=== PATIENT | female | born 1970 | race American Indian/Alaskan Native ===

== ENCOUNTER → 2020-11-26 07:05 | Outpatient (CLI) | payer OTHER, SELFPAY ==
[2020-11-26 08:56] LABS: Cholesterol 249 mg/dL (140-199); HDL Cholesterol 70 mg/dL (40-60); Hemoglobin A1C% w Est Avg Glu 5.2 % (4.0-6.0); LDL Cholesterol Calculated 155 mg/dL (<100); Triglycerides 122 mg/dL (35-150)
[2020-11-26 09:24] LABS: TSH w/ Reflex to FT4 5.01 uIU/mL (0.47-4.68)
[2020-11-26 10:10] LABS: Free T4, Direct Thyroxine 1.22 ng/dL (0.78-2.19)
== END ==
PROVIDERS: PCP Family Medicine; Referring Provider Family Medicine; Visit Provider Family Medicine
DX: Z00.01 Encounter for general adult medical examination with abnormal findings (principal); E78.5 Hyperlipidemia, unspecified
CPT/HCPCS: 36415; 80061; 83036; 84439; 84443

== ENCOUNTER → 2021-01-08 07:01 | Outpatient (CLI) | payer OTHER, SELFPAY ==
[2021-01-08 08:41] LABS: Free T3, Triiodothyronine Free 3.67 pg/mL (2.77-5.27)
[2021-01-08 08:55] LABS: TSH w/ Reflex to FT4 6.84 uIU/mL (0.47-4.68)
[2021-01-08 14:16] LABS: Free T4, Direct Thyroxine 1.01 ng/dL (0.78-2.19)
== END ==
PROVIDERS: PCP Family Medicine; Referring Provider Family Medicine; Visit Provider Family Medicine
DX: E03.9 Hypothyroidism, unspecified (principal); E78.2 Mixed hyperlipidemia
CPT/HCPCS: 36415; 84439; 84443; 84481

== ENCOUNTER → 2021-02-22 10:24 | Outpatient (CLI) | payer OTHER, SELFPAY ==
--- NOTE | 2021-02-22 10:30 | DIET.PN ---
Dietary Progress Note Assessment: Pt wants to get off thyroid meds using diet and herbs with supervision of PCP. Diagnosed with hypothyroid in 30s and currently having side effects from Armor Thyroid (sunburns) Pt doesn't have regular eating routine. Prefers to eat less fiber at dinner time because takes her longer to digest (prefers steamed or cooked rather than raw). Usual Day: wakes and takes thyroid meds then waits an hour does 12oz coffee per day or 3 shots espresso B: yogurt parfait using whole milk yogurt, organic flax granola without sugar OR oatmeal with PB, cinnamon c honey, banana/apple L: sometimes forget to eat, quinoa bowl from [email or web address] (in small amounts over 3-4 sessions), hummus and veggies D: wild rice, usually low starch, generally veggies and protein Drinks a lot of water, occasionally has a fizzy water Avoids soy, some cruciferous veggies, has some sensitivity to starch (feeling of fullness) HT: 5'5 WT: 164-174# Labs:TC 249 H, LDL 155 H, HDL 70 H, TSH 6.84 H Interventions: 1. Discussed balanced plate eating in context of pts particular digestive concerns, HLD, and thyroid health. Focus on 1/4 protein garland shellfish (iodine),1/2c beans (zinc, soluble fiber), 2 brazil nuts (selenium), continue avoiding soy. 1/4 complex carbohydrates: colorful rices, quinoa, 1/2 c chickpea pasta, (f/v, nuts, seeds, also count here to some extent). Up to 2 servings fruit per day. 1/2 plate non-starchy veggies limiting cruciferous to 1/2 c cooked or 1 c raw daily, include [place] seaweed (iodine). Pt received handout with personalized plan. 2. Discussed nutrients of concern for thyroid and HLD: soluble fiber, iodine, selenium, zinc and food sources of each. 3. Discussed how stress from being overly strict with a diet can cause ill health and poorer quality of life. Stressed importance of personalized plan vs following strict advice from internet. Monitoring/Evaluations: pt will call to schedule f/u as needed
== END ==
PROVIDERS: PCP Family Medicine; Referring Provider Family Medicine; Visit Provider Family Medicine
DX: E03.9 Hypothyroidism, unspecified (principal); Z71.3 Dietary counseling and surveillance
CPT/HCPCS: 97802

== ENCOUNTER → 2021-04-10 15:06 | Outpatient (CLI) | payer OTHER, SELFPAY ==
[2021-04-10 16:55] LABS: Free T3, Triiodothyronine Free 6.01 pg/mL (2.77-5.27); Free T4, Direct Thyroxine 0.94 ng/dL (0.78-2.19)
[2021-04-10 17:08] LABS: TSH w/ Reflex to FT4 1.97 uIU/mL (0.47-4.68)
== END ==
PROVIDERS: PCP Family Medicine; Referring Provider Family Medicine; Visit Provider Family Medicine
DX: E03.9 Hypothyroidism, unspecified (principal)
CPT/HCPCS: 36415; 84439; 84443; 84481

== ENCOUNTER → 2021-10-10 07:54 | Outpatient (CLI) | payer OTHER, SELFPAY ==
--- NOTE | 2021-10-31 16:07 | P.HOLT.S_ITS ---
[employer] Report Referral & Results Date Patient Seen: 10/10/21 Requesting provider: Abelardo Bustamante Indication: Palpitations Duration of monitoring (days): 14 Diary information: Was 1 patient triggered event and 18 patient diary entries All 19 of these events were associated with sinus rhythm only Data: Minimum heart rate identified was 55 beats per minute at 05:48 on 10/22/2021 Maximum sinus heart rate was 167 beats per minute at 18:20 on 10/21/2021 Maximum overall heart rate was 179 beats per minute at 12:20 on 10/13/2021 during a run of SVT Less than 1% of identified beats were ventricular or supraventricular ectopic in origin, which would classify them as rare. There were 6 runs of SVT the fastest being the 5 beat run noted above at 179 beats per minute with the longest lasting 8 beats Impression: 14 day alarm security or surveillance monitor demonstrating very rare very brief runs of SVT Otherwise no significant dysrhythmias identified Patient events not correlated with any dysrhythmia and therefore source of sense of palpitations not identified on this study
== END ==
PROVIDERS: PCP Family Medicine; Referring Provider Family Medicine; Visit Provider Family Medicine
DX: R00.2 Palpitations (principal)
CPT/HCPCS: 93246; 93248

== ENCOUNTER → 2021-10-30 10:36 | Outpatient (CLI) | payer OTHER, SELFPAY ==
[2021-10-30 11:59] LABS: Add Manual Diff / Slide Review NO; Basophils Absolute Auto 0 /uL (0-100); Basophils Percent Auto 0.7 % (0-2); Eosinophils Absolute Auto 0 /uL (0-450); Eosinophils Percent Auto 0.6 % (2-4); Hematocrit 44.3 % (36-46); Hemoglobin 14.7 g/dL (12.0-16.0); Lymphocytes Absolute Auto 2500 /uL (1100-4500); Lymphocytes Percent Auto 48.2 % (25-40); Mean Corpuscular HGB Conc 33.2 % (30-36); Mean Corpuscular Hemoglobin 29.5 PG (26-34); Mean Corpuscular Volume 88.9 fL (80-100); Monocytes Absolute Auto 200 /uL (0-900); Monocytes Percent Auto 4.4 % (3-14); Neutrophils Absolute Auto 2400 /uL (1500-7000); Neutrophils Percent Auto 46.1 % (50-75); Platelet Count 236 X10^3/uL (150-400); Red Blood Cell Count 4.98 X10^6/uL (4.0-5.2); Red Cell Distribution Width 12.7 % (11.6-14.8); White Blood Cell Count 5.2 X10^3/uL (4.5-11.0)
[2021-10-30 12:21] LABS: Erythrocyte Sedimentation Rate 2 MM/HR (0-20)
[2021-10-30 12:30] LABS: Alanine Aminotransferase 19 IU/L (<35); Albumin 4.6 g/dL (3.5-5.0); Albumin Globulin Ratio 1.4 (1.0-2.8); Alkaline Phosphatase 59 U/L (38-126); Aspartate Aminotransferase 25 IU/L (14-36); Bilirubin Total 0.4 mg/dL (0.2-1.3); Blood Urea Nitrogen 9 mg/dL (7-17); C-Reactive Protein Quant < 0.5 mg/dL (<1.0); Calcium 9.6 mg/dL (8.4-10.2); Carbon Dioxide 32 mmol/L (22-32); Chloride 102 mmol/L (98-107); Cholesterol 196 mg/dL (140-199); Estimated Glomerular Filt Rate > 60.0 mL/min (>60); Globulin 3.4 g/dL (1.7-4.1); Glucose 92 mg/dL (70-100); HDL Cholesterol 59 mg/dL (40-60); HEMOLYSIS < 15 (0-50); LDL Cholesterol Calculated 119 mg/dL (<100); Potassium 4.5 mmol/L (3.4-5.1); Sodium 140 mmol/L (137-145); Triglycerides 92 mg/dL (35-150)
[2021-10-30 12:34] LABS: Vitamin D 25 Hydroxy (D3) 19.9 ng/mL (30.0-100.0)
[2021-10-30 13:11] LABS: Vitamin B12 516 pg/mL (239-931)
[2021-11-02 16:35] LABS: ANA Screen, IFA Positive (.)
[2021-11-03 19:35] LABS: Percent Free Testosterone 1.53 % (0.50-2.80); Testosterone Free 0.22 ng/dL (0.10-0.85); Testosterone Total 14.3 ng/dL (.)
== END ==
PROVIDERS: PCP Family Medicine; Referring Provider Family Medicine; Visit Provider Family Medicine
DX: E03.9 Hypothyroidism, unspecified (principal); G89.29 Other chronic pain; R00.2 Palpitations; R51.9 Headache, unspecified; R53.82 Chronic fatigue, unspecified
CPT/HCPCS: 36415; 80053; 80061; 82306; 82607; 84402; 84403; 85025; 85651; 86038; 86140

== ENCOUNTER → 2022-06-13 08:42 | Outpatient (CLI) | payer OTHER, SELFPAY ==
[2022-06-13 09:45] LABS: HEMOLYSIS < 15 (0-50); Iron 104 ug/dL (37-170)
[2022-06-13 09:49] LABS: C-Reactive Protein Quant < 0.5 mg/dL (<1.0)
[2022-06-13 09:55] LABS: Percent Iron Saturation 27 % (15-50); Total Iron Binding Capacity 389 ug/dL (265-497); Transferrin 278 mg/dL (206-381)
[2022-06-13 10:01] LABS: Free T3, Triiodothyronine Free 5.06 pg/mL (2.77-5.27)
[2022-06-13 10:05] LABS: Erythrocyte Sedimentation Rate 6 MM/HR (0-20)
[2022-06-13 10:15] LABS: TSH w/ Reflex to FT4 4.86 uIU/mL (0.47-4.68)
[2022-06-13 10:20] LABS: Ferritin 38 ng/mL (11-264)
[2022-06-13 10:52] LABS: Folate 10.7 ng/mL (2.76-20.0); Vitamin B12 480 pg/mL (239-931)
[2022-06-13 11:05] LABS: Free T4, Direct Thyroxine 1.09 ng/dL (0.78-2.19)
== END ==
PROVIDERS: PCP Family Medicine; Referring Provider Family Medicine; Visit Provider Family Medicine
DX: E55.9 Vitamin D deficiency, unspecified (principal); E78.2 Mixed hyperlipidemia; K13.0 Diseases of lips; G89.29 Other chronic pain; K14.8 Other diseases of tongue; E03.9 Hypothyroidism, unspecified
CPT/HCPCS: 36415; 82607; 82728; 82746; 83540; 83550; 84439; 84443; 84481; 85651; 86038; 86140

== ENCOUNTER → 2022-07-04 09:01 | Outpatient (CLI) | payer OTHER, SELFPAY ==
[2022-07-09 17:56] LABS: ANA Screen, IFA Positive (.)
== END ==
PROVIDERS: PCP Family Medicine; Referring Provider Family Medicine; Visit Provider Family Medicine
DX: E03.9 Hypothyroidism, unspecified (principal); G89.29 Other chronic pain; R00.2 Palpitations; R51.9 Headache, unspecified; R53.82 Chronic fatigue, unspecified
CPT/HCPCS: 36415; 86038

== ENCOUNTER 2023-11-05 21:09 | Inpatient (IN) | payer OTHER, SELFPAY ==
[2023-11-05] VITALS (14 sets, daily range): BP systolic 114–160; BP diastolic 61–95; PULSE 100–114; RESP 14–28; TEMP 36.7; O2SAT 95–99
--- NOTE | 2023-11-05 21:32 | DI.CT.S_ITS ---
PROCEDURE: CT STROKE INDICATIONS: stroke TECHNIQUE: Noncontrast 4.5 mm thick angled axial sections acquired from the foramen magnum to the vertex, with coronal reformats. For radiation dose reduction, the following was used: automated exposure control, adjustment of mA and/or kV according to patient size. COMPARISON: None. FINDINGS: Image quality: Diagnostic. CSF spaces: Basal cisterns are patent. No extra-axial fluid collections. The ventricles are symmetric in size and shape. Brain: No intracranial bleeds or masses. There is cerebral volume loss for age, with resultant ventricular and sulcal prominence. There are periventricular and deep white matter chronic small vessel ischemic changes. There is intracranial internal carotid artery atherosclerosis. Skull and face: Calvarium and visualized facial bones appear intact, without suspicious lesions. Sinuses: Visualized sinuses and mastoids are clear. IMPRESSION: No acute intracranial pathology. Findings were conveyed to ordering ED provider Dr. Jenkins by Dr. Levi at 9:51 p.m. PST on 11/05/2023. This study fulfills neurological imaging criteria for inclusion or exclusion of acute stroke therapies based on available published neurological guidelines. Approved by: Katie Levi M.D. on 11/05/2023 at 21:52
--- NOTE | 2023-11-05 21:32 | ED_ITS ---
HPI - General Adult General Chief complaint: Dizziness Stated complaint: dizzy, unable to walk, not feeliig well Time Seen by Provider: 11/05/23 21:21 Source: patient and family Mode of arrival: Wheelchair History of Present Illness HPI narrative: 53-year-old woman with a history of hypothyroidism presents with increasing neurologic complaints over the last 10 hours. She was doing an infrared spot treatment around 11 30 this morning when she noted that her right arm seemed like it was weaker and slightly numb. She assumed it was simply a pinched nerve. It seemed to improve. Recurred again and again improved. She complains of feeling ?not right? and somewhat fatigued all day. She and her went to a basketball game this evening and in the middle of the game she asked her to help her out of the stands because she was not feeling well. She was having some difficulty walking. noticed that her speech seemed somewhat abnormal. This was at 8:30 p.m. this evening. Prior to today she had had no fevers, cough, chills no recent infections, no prior neurologic complaints, chest pain, palpitations or headaches Related Data Previous Rx's Medication Instructions Recorded epinephrine 0.3 mg/0.3 mL 0.3 ml SUBCUT ONCE #2 ea 04/10/21 injection syringe thyroid (pork) 30 mg tablet 30 mg PO DAILY #90 tabs 02/27/23 ([place] Thyroid) Allergies Allergy/AdvReac Type Severity Reaction Status Date / Time ibuprofen [IBUPROFEN] Allergy Unknown Verified 11/05/23 22:00 Penicillins [PENICILLINS] Allergy Unknown Verified 11/05/23 22:00 Bos[place]ellya AdvReac Intermediate Uncoded 03/03/22 15:18 Review of Systems Review of Systems Narrative: Pertinent positive and negative findings as per HPI Patient History Medical History Vitamin D deficiency Chronic headaches Heart palpitations Chronic neck pain Chronic back pain Hearing decreased Mumps Measles Chicken pox Hypothyroidism Hyperlipidemia Surgical History Anesthesia History of tonsillectomy Family History Father No problems noted. Grandmother Stroke Grandfather History of heart disease Grandmother History of heart disease Cancer Social History Smoking Status: Never smoker Smoking Status: Never smoker Exam Initial Vital Signs Initial Vital Signs: Vital Signs Temperature 98.1 F 11/05/23 21:22 Pulse Rate 110 H 11/05/23 21:22 Respiratory Rate 24 11/05/23 21:22 Blood Pressure 160/95 H 11/05/23 21:22 Pulse Oximetry 98 11/05/23 21:22 Oxygen Delivery Method Room Air 11/05/23 21:22 General: Appears to feel unwell, slightly flushed around the posterior part of her neck extending onto her upper neck such as can be seen with anxiety. HEENT: Dry mucous membranes, normal sclera with reactive pupils, Neck: No JVD, supple Respiratory: Lungs are clear to auscultation, no wheezing no rales no rhonchi. Full and symmetrical air movement Cardiac: Tachycardic but otherwise Regular rate and rhythm no murmurs no bruits Abdomen: Soft, nontender, good bowel tones, no flank pain Skin: Warm and dry, flushing over her upper chest Neurologic: She has some dysarthria and dysphagia. Mild decreased sensation right arm and right leg. Right arm is slightly weaker than the left but the left does not appear completely at baseline either. Similar findings with the legs. She has difficulty with ataxia in all 4 limbs right side significantly worse than the left. NIH score is below Extremities: No trauma, well perfused Psych: Cooperative, appropriate insight and affect NIH Stroke Scale/Score (NIHSS) RESULT SUMMARY: 7 points NIH Stroke Scale INPUTS: 1A: Level of consciousness ?> 0 = Alert; keenly responsive 1B: Ask month and age ?> 0 = Both questions right 1C: 'Blink eyes' & 'squeeze hands' ?> 0 = Performs both tasks 2: Horizontal extraocular movements ?> 0 = Normal 3: Visual alfonso ?> 0 = No visual loss 4: Facial palsy ?> 0 = Normal symmetry 5A: Left arm motor drift ?> 0 = No drift for 10 seconds 5B: Right arm motor drift ?> 1 = Drift, but doesn't hit bed 6A: Left leg motor drift ?> 0 = No drift for 5 seconds 6B: Right leg motor drift ?> 1 = Drift, but doesn't hit bed 7: Limb Ataxia ?> 2 = Ataxia in 2 Limbs 8: Sensation ?> 1 = Mild-moderate loss: less sharp/more dull 9: Language/aphasia ?> 1 = Mild-moderate aphasia: some obvious changes, without significant limitation 10: Dysarthria ?> 1 = Mild-moderate dysarthria: slurring but can be understood 11: Extinction/inattention ?> 0 = No abnormality Course Orders Ordered: ED Orders 11/05/23 21:22 Complete Blood Count AUTO DIFF Stat Comprehensive Metabolic Panel Stat Ethanol (ETOH) Stat PTT Partial Thromboplastin Andrew Stat Prothrombin Time INR Stat T4 Total Thyroxine Stat TSH [Thyroid Stimulating Hormone] Stat Troponin & CK Cardiac Panel Stat 11/05/23 21:32 CT Stroke Stat EKG-12 Lead Stat 11/05/23 21:33 CT angio head and neck Stat 11/05/23 22:27 Urinalysis and Microscopic Stat Urine Drug Screen, Rapid Stat Sodium Chloride (Normal Saline 0.9%) 1,000 mls @ 150 mls/hr IV CONT DANIEL Last Admin: 11/05/23 22:00 Dose: 150 mls/hr Documented By: WILLIE Discontinued Medications Aspirin (Aspirin 81 Mg Chew Tab) 324 mg PO NOW ONE Stop: 11/05/23 23:16 Last Admin: 11/05/23 23:53 Dose: Not Given Documented By: WILLIE Aspirin (Aspirin 300 Mg Supp) 300 mg DE NOW ONE Stop: 11/05/23 23:49 Last Admin: 11/06/23 00:06 Dose: 300 mg Vital Signs Vital signs: Vital Signs - 8 hr 11/05/23 21:22 11/05/23 21:23 11/05/23 21:25 Temperature 98.1 F Pulse Rate 110 H 113 H 110 H Respiratory Rate 24 19 20 Blood Pressure 160/95 H Pulse Oximetry 98 98 97 Oxygen Delivery Method Room Air 11/05/23 21:25 11/05/23 21:30 11/05/23 21:30 Temperature Pulse Rate 105 H Respiratory Rate 28 H Blood Pressure 160/95 H 152/86 H Pulse Oximetry 99 Oxygen Delivery Method Room Air 11/05/23 21:44 11/05/23 21:44 11/05/23 21:45 Temperature Pulse Rate 114 H Respiratory Rate 14 Blood Pressure 145/84 H 134/75 Pulse Oximetry 98 Oxygen Delivery Method 11/05/23 21:45 11/05/23 22:00 11/05/23 22:00 Temperature Pulse Rate 111 H 106 H Respiratory Rate 15 20 Blood Pressure 142/80 H Pulse Oximetry 98 97 Oxygen Delivery Method Room Air Medical Decision Making Lab Data 11/05/23 21:22 11/05/23 21:22 Labs: Lab Results 11/05/23 11/05/23 11/05/23 Range/Units 21:22 22:27 22:27 WBC 9.3 (4.5-11.0) X10^3/uL RBC 4.80 (4.0-5.2) X10^6/uL Hgb 14.3 (12.0-16.0) g/dL Hct 42.3 (36-46) % MCV 88.0 (80-100) fL MCH 29.8 (26-34) PG MCHC 33.9 (30-36) % RDW 13.0 (11.6-14.8) % Plt Count 247 (150-400) X10^3/uL Neut % (Auto) 37.7 L (50-75) % Lymph % (Auto) 56.6 H (25-40) % [place] % (Auto) 4.3 (3-14) % Eos % (Auto) 0.7 L (2-4) % Baso % (Auto) 0.7 (0-2) % Neut # (Auto) 3500 (8214-1390) /uL Lymph # (Auto) 5200 H (2981-9951) /uL [place] # (Auto) 400 (0-900) /uL Eos # (Auto) 100 (0-450) /uL Baso # (Auto) 100 (0-100) /uL PT 10.7 (9.4-12.5) SECONDS INR 0.9 (0.9-1.3) APTT 39 H (25.1-36.5) SECONDS Sodium 140 (137-145) mmol/L Potassium 3.6 (3.4-5.1) mmol/L Chloride 102 (98-107) mmol/L Carbon Dioxide 26 (22-32) mmol/L BUN 17 (7-17) mg/dL Creatinine 0.57 (0.52-1.04) mg/dL Estimated GFR > 60 (>60) mL/min BUN/Creatinine Ratio 29.8 H (6-22) Glucose 108 H (70-100) mg/dL Calcium 9.4 (8.4-10.2) mg/dL Total Bilirubin 0.6 (0.2-1.3) mg/dL AST 29 (14-36) IU/L ALT 23 (<35) IU/L Alkaline Phosphatase 70 (38-126) U/L Total Creatine Kinase 86 (30-135) U/L Troponin I < 0.012 (0.01-0.034) ng/mL Total Protein 8.8 H (6.3-8.2) g/dL Albumin 4.8 (3.5-5.0) g/dL Globulin 4.0 (1.7-4.1) g/dL Albumin/Globulin Ratio 1.2 (1.0-2.8) TSH 10.1 H (0.47-4.68) uIU/mL Urine Color Yellow Urine Appearance Clear Urine pH 6.5 Normal (4.5-8.0) Ur Specific [place] 1.010 (1.000-1.035) Urine Protein Negative (Negative) Urine Glucose (UA) Negative (Negative) g/dL Urine Ketones Negative (NEGATIVE) Urine Occult Blood Negative (Negative) Urine Nitrate Negative (Negative) Urine Bilirubin Negative (NEGATIVE) Urine Urobilinogen 0.2 (0.2) E.U./dL Ur Leukocyte Esterase Negative (NEGATIVE) Urine RBC 0-1/hpf (0-5/HPF) Urine WBC 0-1/hpf (0-5/HPF) Ur Squamous Epith Cells 1-5 /hpf (0-5/HPF) Urine Bacteria Occasional (0-1) (None) Ur Culture Indicated? Cult not indicated Vol Urine Centrifuged 10ml (spun) U Opiates 300ng/mL cut Negative (Negative) Ur Oxycodone Screen Negative (Negative) Urine Methadone Screen Negative (Negative) Ur Barbiturates Screen Negative (Negative) U Tricyclic Antidepress Negative (Negative) Ur Phencyclidine Scrn Negative (Negative) Ur Amphetamines Screen Negative (Negative) U Methamphetamines Scrn Negative (Negative) Ur MDMA Scrn (Ecstasy) Negative (Negative) U Benzodiazepines Scrn Negative (Negative) Urine Cocaine Screen Negative (Negative) U Marijuana (THC) Screen Negative (Negative) Urine Specific [place] Normal (Normal) Ethyl Alcohol < 10 ( - 10) mg/dL Ur Creatinine Normal (Normal) Point of Care Testing Glucose POC 99 Point of care testing: Point of Care Testing Glucose POC [address] angiogram head and neck: Radiologist's Impression: PROCEDURE: CT ANGIO HEAD AND NECK INDICATIONS: stroke TECHNIQUE: After the administration of intravenous contrast, 1 mm thick sections acquired from the aortic arch through the [place]. 3-dimensional lfhimyq-yoipraqyh-iujysfiwuf (MIP) and/or volume rendering reformats were acquired of the central intracranial vasculature and neck separately. For radiation dose reduction, the following was used: automated exposure control, adjustment of mA and/or kV according to patient size. COMPARISON: None. FINDINGS: Image quality: Diagnostic. BRAIN: CSF spaces: Ventricles are normal in size and shape. Basal cisterns are patent. No extra-axial fluid collections. Brain: No significant abnormality of the brain can be seen. Skull and face: Calvarium and facial bones appear intact, without suspicious lesions. Orbits appear normal. Sinuses: Sinuses and mastoids are clear. HEAD CT ANGIOGRAPHY: Anterior circulation: Intracranial internal carotid arteries are normal in size and flow. The flow within the paired anterior cerebral arteries is normal and symmetric. The flow within the middle cerebral arteries is normal and symmetric. The anterior communicating artery is seen. No aneurysms are seen. Posterior circulation: Visualized portions of the vertebral arteries demonstrate normal caliber, and join to form a normal appearing basilar artery. origin of the right posterior cerebral artery. Flow within the posterior cerebral arteries is normal and symmetric. No aneurysms are seen. NECK CT ANGIOGRAPHY: Carotid system: There is an aberrant right subclavian artery arising from the distal aortic arch and coursing posterior to the esophagus. The right common carotid artery arises directly from the aortic arch and is patent. The common carotid arteries demonstrate normal caliber and courses. The bifurcation regions are both widely patent. The internal carotid arteries demonstrate normal calibers and courses. Mild calcifications of the bilateral internal carotid siphons. Posterior circulation: The origins of the vertebral arteries both appear widely patent. The more superior extracranial portions of both vertebral arteries also demonstrate normal courses and calibers. They join to form a normal appearing basilar artery. Soft tissues: Visualized neck soft tissues demonstrate no suspicious abnormalities. Bones: No suspicious bony lesions. Visualized cervical spine appears normally aligned. IMPRESSION: No significant intracranial arterial abnormality is seen. No significant abnormality is seen within the arteries of the neck. Incidental retroesophageal aberrant right subclavian artery. Any quantitative measurements of stenosis were performed using NASCET criteria. Approved by: Katie Levi M.D. on 11/05/2023 at 22:25 MDM Narrative Medical decision making narrative: CC: Concern for stroke Last known well was 30 this morning with stuttering right arm symptoms. Reported to her she was not feeling well at 8:30 p.m. this evening but not entirely clear that was truly the onset Complicating co-morbidities: Hypothyroidism Data collected from: patient, Medical records reviewed: Note from May 2022 primary care is reviewed. Apparently there was a tongue abnormality that was causing the patient to burn her tongue frequently and her dentist sent her to her primary care doctor with concerns for neurologic issues. It does not look like additional workup or referrals were done Differential considered: Stroke, infection, MS, intracranial mass Exam documented above, pertinent findings include: Patient with mild dysarthria, mild aphasia, overall weakness but right greater than left with mild paresthesia right greater than left in the extremities but not the face. Overall initial NIH score is 7. Lab Test results independently reviewed as above. Pertinent findings: CBC is unremarkable Chemistries are reassuring Troponin is undetectable Urine does not suggest infection Toxicology screen is unremarkable and alcohol level is nondetectable. Independently reviewed EKG: Sinus tachycardia, occasional PVCs. No acute ischemic changes Imaging studies independently reviewed: Head CT does not show any acute abnormality CT angiogram of the head and neck did not show any acute abnormalities, specifically no large vessel occlusion Consultations:9:52pm call from radiology - no acute bleed on head CT 11:11 pm Tele stroke consult. Dr. Johnson. She was able to review studies and based on presentation her recommendation was aspirin and an MRI. Treatments: Patient did not pass her swallow eval, rectal aspirin is given Re-evaluations: Initial evaluation gives her an NIH score of 7. The overall picture is not obvious. CT and CTA of the brain are ordered. Discussion: 53-year-old woman with intermittent episodes of right arm weakness and then increasing right leg weakness, paresthesias and she has failed her swallow eval. Events have continued over the course of the day beginning at 11:30 a.m. this morning and her noticing around [address] angiogram did not show acute stroke, bleed or large vessel occlusion. In discussion with stroke Neurology patient will be admitted with anticipation of MRI in the morning. Her initial NIH score was 7. On repeat she is far less anxious, her speech is definitely improved but her NIH score remains a 7. She has not a tPA candidate as it was at least 9 hours since onset of symptoms and diagnosis is not completely clear at this time. Findings reviewed with the patient and her . Care is reviewed with Dr. Soliz, admitting hospitalist. Patient will be admitted for further evaluation and presumed at least TIA if not stroke. Additional possibilities do include other neurologic diagnoses such as multiple sclerosis with acute flare. There is no evidence of infection, meningitis toxidrome or acute intoxication appreciated today. Additional Information: [facility] Stroke & Stroke Rehabilitation: Thrombolytic Therapy [] The patient, who arrived at the hospital within 3.5 hours of time last known well, was diagnosed with subacute or acute ischemic stroke. An IV thrombolytic therapy was initiated within 4.5 hours of time last known well. [SATISFIES MIPS PERFORMANCE] [] The patient was diagnosed with subacute or acute ischemic stroke. An IV thrombolytic therapy was not initiated within 4.5 hours of last known well due to [select]: [MIPS PERFORMANCE EXCEPTION/EXCLUSION] [x] Patient arrived more than 3.5 hours after last known well time, or the time last known well is unknown [] Patient has a medical contra-indication or reason for not administering an IV thrombolytic therapy (ex. neurologist does not believe a thrombolytic is appropriate, active internal bleeding, serious head trauma, acute current or history of intracranial hemorrhage, uncontrollable hypertension, seizure at onset of stroke, CVA in last 3 months, Intracranial or intraspinal surgery in last 3 months, bleeding disorder, thrombocytopenia < 100,000, early radiographic ischemic changes on head CT, INR > 1.7, intracranial neoplasm, AVM, or aneurysm, patient in stroke trial, patient admitted for elective carotid intervention) [] Patient or family declined an IV thrombolytic [] The patient, who arrived at the hospital within 3.5 hours of time last known well, was diagnosed with subacute or acute ischemic stroke. An IV thrombolytic was not initiated within 4.5 hours of time last known well. [DOES NOT SATISFY MIPS PERFORMANCE] Critical Care Time Critical Care Time Critical Care Time: Yes Total Critical Care Time: 33 Attestation: Critical care time is separate from other billable procedures. There is a high probability of a significant, sudden or life-threatening deterioration that requires my full and direct attention, intervention and personal management. This critical care time includes consultation with family and other consulting doctors, review of records, and interpretation of data from labs, EKGs and imaging as well as managements of acute stroke symptoms Discharge Plan Departure Patient Disposition: Admitted as Observation Clinical Impression: Stroke Qualifiers: CVA mechanism: unspecified Qualified Code(s): I63.9 - Cerebral infarction, unspecified Admit Date/Time: 11/06/23 00:10
[2023-11-05 21:42] LABS: Add Manual Diff / Slide Review NO; Basophils Absolute Auto 100 /uL (0-100); Basophils Percent Auto 0.7 % (0-2); Eosinophils Absolute Auto 100 /uL (0-450); Eosinophils Percent Auto 0.7 % (2-4); Hematocrit 42.3 % (36-46); Hemoglobin 14.3 g/dL (12.0-16.0); Lymphocytes Absolute Auto 5200 /uL (1100-4500); Lymphocytes Percent Auto 56.6 % (25-40); Mean Corpuscular HGB Conc 33.9 % (30-36); Mean Corpuscular Hemoglobin 29.8 PG (26-34); Monocytes Absolute Auto 400 /uL (0-900); Monocytes Percent Auto 4.3 % (3-14); Neutrophils Absolute Auto 3500 /uL (1500-7000); Neutrophils Percent Auto 37.7 % (50-75); Platelet Count 247 X10^3/uL (150-400); White Blood Cell Count 9.3 X10^3/uL (4.5-11.0)
[2023-11-05 21:44] LABS: INR 0.9 (0.9-1.3); Prothrombin Time 10.7 SECONDS (9.4-12.5)
[2023-11-05 21:47] LABS: PTT Partial Thromboplastin Tim 39 SECONDS (25.1-36.5)
[2023-11-05 21:49] LABS: Alanine Aminotransferase 23 IU/L (<35); Albumin 4.8 g/dL (3.5-5.0); Albumin Globulin Ratio 1.2 (1.0-2.8); Alkaline Phosphatase 70 U/L (38-126); Aspartate Aminotransferase 29 IU/L (14-36); BUN Creatinine Ratio 29.8 (6-22); Bilirubin Total 0.6 mg/dL (0.2-1.3); Blood Urea Nitrogen 17 mg/dL (7-17); Calcium 9.4 mg/dL (8.4-10.2); Carbon Dioxide 26 mmol/L (22-32); Chloride 102 mmol/L (98-107); Creatine Kinase 86 U/L (30-135); Estimated Glomerular Filt Rate > 60 mL/min (>60); Ethanol (ETOH) < 10 mg/dL; Glucose 108 mg/dL (70-100); HEMOLYSIS 27 (0-50); Potassium 3.6 mmol/L (3.4-5.1); Sodium 140 mmol/L (137-145); Total Protein 8.8 g/dL (6.3-8.2)
[2023-11-05 22:00] LABS: Troponin I < 0.012 ng/mL (0.01-0.034)
[2023-11-05] MEDS: SODIUM CHLORIDE 0.9% 1,000 ML 150 ML IV (22:00)
[2023-11-05 22:34] LABS: Appearance Urine UA CLEAR; Bilirubin Urine UA NEGATIVE (NEGATIVE); Color Urine UA YELLOW; Glucose Urine UA NEGATIVE (Negative); Ketones Urine UA NEGATIVE (NEGATIVE); Leukocyte Esterase Urine UA NEGATIVE (NEGATIVE); Nitrite Urine UA NEGATIVE (Negative); Occult Blood Urine UA NEGATIVE (Negative); Protein Urine UA NEGATIVE (Negative); UR Morphine/Opiate cutoff 300 Negative (Negative); Ur Creatinine Normal (Normal); Ur Specific Gravity Normal (Normal); Urine Amphetamines Negative (Negative); Urine Barbiturates Negative (Negative); Urine Benzodiazepines Negative (Negative); Urine Cocaine Negative (Negative); Urine MDMA Negative (Negative); Urine Methadone Negative (Negative); Urine Methamphetamines Negative (Negative); Urine Oxycodone Negative (Negative); Urine Phencyclidine Negative (Negative); Urine Tetrahydrocannabinol Negative (Negative); Urine Tricyclic Antidepressant Negative (Negative); Urine pH Normal (Normal); Urobilinogen Urine UA 0.2 E.U./dL (0.2)
[2023-11-05 22:43] LABS: Bacteria Urine Occasional (0-1); Culture Indicated Urine Cult Not Indicated; RBC Urine 0-1/HPF (0-5/HPF); Squamous Epithelial Cell Urine 1-5 /HPF (0-5/HPF); Urine Volume 10mL (spun); WBC Urine 0-1/HPF (0-5/HPF); pH Urine UA 6.5 (4.5-8.0)
[2023-11-05 23:55] LABS: Thyroid Stimulating Hormone 10.1 uIU/mL (0.47-4.68)
[2023-11-06] VITALS (10 sets, daily range): BP systolic 92–130; BP diastolic 62–83; PULSE 76–102; RESP 14–19; TEMP 36.2–36.9; O2SAT 96–98; BMI 29.7
[2023-11-06] MEDS: ASPIRIN 300 MG SUPP PR (00:06)
[2023-11-06 00:33] LABS: T4 Total Thyroxine 6.31 ug/dL (5.5-11.0)
[2023-11-06] MEDS: SODIUM CHLORIDE 0.9% 1,000 ML 150 ML IV (01:59)
--- NOTE | 2023-11-06 03:08 | DI.MRI.S_ITS ---
PROCEDURE: MR HEAD/BRAIN WO CON INDICATIONS: tia TECHNIQUE: Noncontrast axial T1 spin echo, axial T2 fast spin echo, sagittal and axial FLAIR, coronal T2 fast spin echo, axial gradient echo, axial diffusion and ADC through the brain. COMPARISON: [facility], CT, CT ANGIO HEAD AND NECK, 11/05/2023, 21:43. [facility], CT, CT STROKE, 11/05/2023, 21:43. FINDINGS: Image quality: Excellent. CSF Spaces: Basal cisterns are patent. No extra-axial fluid collections. Ventricles are normal in size and shape. Brain: No intracranial masses or hemorrhage. [place]/white matter interface is normal. Brainstem appears normal. Diffusion-weighted images demonstrate no acute infarct. No chronic ischemic insults. Normal intravascular flow voids are present. Skull and face: Calvarium has normal marrow signal. Orbits appear normal. Sinuses: Sinuses and mastoids are clear. IMPRESSION: No findings of acute or subacute infarction can be seen. Dictated by: Drew Douglas M.D. on 11/06/2023 at 10:49 Approved by: Drew Douglas M.D. on 11/06/2023 at 10:51
--- NOTE | 2023-11-06 03:27 | PM.HP.1 ---
History of Present Illness History of Present Illness Date Patient Seen: 11/06/23 Time Patient Seen: 01:30 Chief complaint: dizzy, unable to walk, not feeliig well Narrative: 51 years old female with past medical history fibromyalgia, hypothyroidism, hyperlipidemia, chronic back pain/headache, vitamin D deficiency and other medical issues was brought to the emergency room for weakness on the left side of the body and subsequently weekly labs and the right upper and lower extremity. She had an infrared spa treatment for the fibromyalgia around 11:30 in the morning and noticed initially weakness on the left side and subsequently improved and weakness in the right side as well. She is simply assumed it was a pinched nerve and went to basketball in the evening. In the middle of the game, she asked to help out of the stance because she was not feeling well with significant gait instability. Spouse also noted some abnormality in the speech that was slow and slurred. Denies any blurred vision diplopia trauma. Did have recent fibromyalgia flareup after recent hike but not into the [place] about 2 weeks ago. No recent other travels or infections. Denies any chest pain or shortness of breath. Denies any nausea vomiting. CT angio of the head and neck showed no significant intracranial or vascular abnormality. In the ED, patient had a choking episode with any oral intake of pills or with fluids. Aspirin was given per rectally and stroke neurology were consulted. Not a candidate for tPA since outside the 4-hour window. Recommended admission for further workup including MRI [facility] Medical History Vitamin D deficiency Chronic headaches Heart palpitations Chronic neck pain Chronic back pain Hearing decreased Mumps Measles Chicken pox Hypothyroidism Hyperlipidemia Surgical History Anesthesia History of tonsillectomy Family History Father No problems noted. Grandmother Stroke Grandfather History of heart disease Grandmother History of heart disease Cancer Social History household members: spouse and family Smoking Status: Never smoker alcohol intake: current Meds Home Medications and Allergies Home Medications Medication Instructions Recorded Confirmed Type epinephrine 0.3 mg/0.3 mL 0.3 ml SUBCUT ONCE #2 ea 04/10/21 11/05/23 Rx injection syringe thyroid (pork) 30 mg tablet 30 mg PO DAILY #90 tabs 02/27/23 11/05/23 Rx ([facility]) Allergies Allergy/AdvReac Type Severity Reaction Status Date / Time ibuprofen [IBUPROFEN] Allergy Unknown Verified 11/05/23 22:00 Penicillins [PENICILLINS] Allergy Unknown Verified 11/05/23 22:00 Boswellya AdvReac Intermediate Uncoded 03/03/22 15:18 Review of Systems Review of Systems Narrative: At 12 point review of systems negative unless otherwise stated in the history present illness Exam Vital Signs (past 8 hours): - 11/05/23 21:22 11/05/23 21:23 11/05/23 21:25 Temperature 98.1 F Pulse Rate 110 H 113 H 110 H Respiratory Rate 24 19 20 Blood Pressure 160/95 H Pulse Oximetry 98 98 97 Oxygen Delivery Method Room Air Oxygen Flow Rate 11/05/23 21:25 11/05/23 21:30 11/05/23 21:30 Temperature Pulse Rate 105 H Respiratory Rate 28 H Blood Pressure 160/95 H 152/86 H Pulse Oximetry 99 Oxygen Delivery Method Room Air Oxygen Flow Rate 11/05/23 21:44 11/05/23 21:44 11/05/23 21:45 Temperature Pulse Rate 114 H Respiratory Rate 14 Blood Pressure 145/84 H 134/75 Pulse Oximetry 98 Oxygen Delivery Method Oxygen Flow Rate 11/05/23 21:45 11/05/23 22:00 11/05/23 22:00 Temperature Pulse Rate 111 H 106 H Respiratory Rate 15 20 Blood Pressure 142/80 H Pulse Oximetry 98 97 Oxygen Delivery Method Room Air Oxygen Flow Rate 11/05/23 22:15 11/05/23 22:15 11/05/23 22:30 Temperature Pulse Rate 105 H 102 H Respiratory Rate 17 16 Blood Pressure 131/79 Pulse Oximetry 97 96 Oxygen Delivery Method Oxygen Flow Rate 11/05/23 22:30 11/05/23 22:45 11/05/23 22:45 Temperature Pulse Rate 105 H Respiratory Rate 18 Blood Pressure 125/61 127/67 Pulse Oximetry 95 Oxygen Delivery Method Oxygen Flow Rate 11/05/23 23:01 11/05/23 23:01 11/05/23 23:15 Temperature Pulse Rate 100 H 104 H Respiratory Rate 22 18 Blood Pressure 129/95 H Pulse Oximetry 96 96 Oxygen Delivery Method Oxygen Flow Rate 11/05/23 23:15 11/05/23 23:30 11/05/23 23:30 Temperature Pulse Rate 102 H Respiratory Rate 21 Blood Pressure 121/87 114/72 Pulse Oximetry 96 Oxygen Delivery Method Oxygen Flow Rate 11/05/23 23:45 11/05/23 23:45 11/06/23 00:00 Temperature Pulse Rate 101 H 100 H Respiratory Rate 16 19 Blood Pressure 118/76 Pulse Oximetry 97 97 Oxygen Delivery Method Oxygen Flow Rate 11/06/23 00:00 11/06/23 00:15 11/06/23 00:15 Temperature Pulse Rate 102 H Respiratory Rate 17 Blood Pressure 130/77 119/74 Pulse Oximetry 96 Oxygen Delivery Method Oxygen Flow Rate 11/06/23 00:30 11/06/23 00:30 11/06/23 00:45 Temperature Pulse Rate 100 H Respiratory Rate 16 Blood Pressure 113/70 115/76 Pulse Oximetry 96 Oxygen Delivery Method Oxygen Flow Rate 11/06/23 00:45 11/06/23 01:00 11/06/23 01:00 Temperature Pulse Rate 101 H 101 H Respiratory Rate 14 15 Blood Pressure 117/73 Pulse Oximetry 96 96 Oxygen Delivery Method Oxygen Flow Rate 11/06/23 02:31 Temperature 97.8 F Pulse Rate 94 H Respiratory Rate 16 Blood Pressure 120/83 Pulse Oximetry 97 Oxygen Delivery Method Oxygen Flow Rate 0 Oxygen Delivery Method Room Air Oxygen Flow Rate 0 Narrative Exam Narrative: Patient is awake alert oriented to time place and person. Following commands. Good strength against gravity in the upper and lower extremity. Sensations intact. Objective Labs 11/05/23 21:22 11/05/23 21:22 Labs: Laboratory Results - last 24 hr 11/05/23 11/05/23 11/05/23 21:22 22:27 22:27 WBC 9.3 RBC 4.80 Hgb 14.3 Hct 42.3 MCV 88.0 MCH 29.8 MCHC 33.9 RDW 13.0 Plt Count 247 Neut % (Auto) 37.7 L Lymph % (Auto) 56.6 H Campbell % (Auto) 4.3 Eos % (Auto) 0.7 L Baso % (Auto) 0.7 Neut # (Auto) 3500 Lymph # (Auto) 5200 H Campbell # (Auto) 400 Eos # (Auto) 100 Baso # (Auto) 100 PT 10.7 INR 0.9 APTT 39 H Sodium 140 Potassium 3.6 Chloride 102 Carbon Dioxide 26 BUN 17 Creatinine 0.57 Estimated GFR > 60 BUN/Creatinine Ratio 29.8 H Glucose 108 H Calcium 9.4 Total Bilirubin 0.6 AST 29 ALT 23 Alkaline Phosphatase 70 Total Creatine Kinase 86 Troponin I < 0.012 Total Protein 8.8 H Albumin 4.8 Globulin 4.0 Albumin/Globulin Ratio 1.2 TSH 10.1 H Thyroxine (T4) 6.31 Urine Color Yellow Urine Appearance Clear Urine pH 6.5 Normal Ur Specific Crouse 1.010 Urine Protein Negative Urine Glucose (UA) Negative Urine Ketones Negative Urine Occult Blood Negative Urine Nitrate Negative Urine Bilirubin Negative Urine Urobilinogen 0.2 Ur Leukocyte Esterase Negative Urine RBC 0-1/hpf Urine WBC 0-1/hpf Ur Squamous Epith Cells 1-5 /hpf Urine Bacteria Occasional (0-1) Ur Culture Indicated? Cult not indicated Vol Urine Centrifuged 10ml (spun) U Opiates 300ng/mL cut Negative Ur Oxycodone Screen Negative Urine Methadone Screen Negative Ur Barbiturates Screen Negative U Tricyclic Antidepress Negative Ur Phencyclidine Scrn Negative Ur Amphetamines Screen Negative U Methamphetamines Scrn Negative Ur MDMA Scrn (Ecstasy) Negative U Benzodiazepines Scrn Negative Urine Cocaine Screen Negative U Marijuana (THC) Screen Negative Urine Specific Crouse Normal Ethyl Alcohol < 10 Ur Creatinine Normal Assessment & Plan Assessment & Plan narrative: 51 years old female with past medical history fibromyalgia, hypothyroidism, hyperlipidemia, chronic back pain/headache, vitamin D deficiency and other medical issues was brought to the emergency room for weakness on the left side of the body and subsequently weekly labs and the right upper and lower extremity. She had an infrared spa treatment for the fibromyalgia around 11:30 in the morning and noticed initially weakness on the left side and subsequently improved and weakness in the right side as well. She is simply assumed it was a pinched nerve and went to basketball in the evening. In the middle of the game, she asked to help out of the stance because she was not feeling well with significant gait instability. Spouse also noted some abnormality in the speech that was slow and slurred. Denies any blurred vision diplopia trauma. Did have recent fibromyalgia flareup after recent hike but not into the [place] about 2 weeks ago. No recent other travels or infections. Denies any chest pain or shortness of breath. Denies any nausea vomiting. CT angio of the head and neck showed no significant intracranial or vascular abnormality. In the ED, patient had a choking episode with any oral intake of pills or with fluids. Aspirin was given per rectally and stroke neurology were consulted. Not a candidate for tPA since outside the 4-hour window. Recommended admission for further workup including MRI 1. Weakness with numbness on the left side and subsequently on the right side with gait instability and dysarthria that happened after her infrared treatment for the fibromyalgia. In the ED, the symptoms have not resolved fully and there was a concern for an acute CVA but by the time of arrival to the floor, patient is now able to talk and able to move the upper and lower extremities bilaterally. The tingling and numbness have improved. The patient is now able to speak full sentences. Workup as a TIA and check an MRI of the brain/echocardiogram for further evaluation while monitoring in the telemetry. Watch and check for any hypoglycemic events/electrolyte imbalance/infections. The labs are fairly unremarkable. UA is negative for WBCs/leukocyte esterase. Urine toxicology screen is negative. Monitor closely for now. Will keep the patient n.p.o. except for medications until evaluated by speech to rule out a silent aspiration. Did do a swallow evaluation at the bedside and appears to be swallowing without any overt coughing. Already received aspirin per rectally in the emergency room. Initiate IV fluids while the patient is n.p.o. no clinical evidence of other infectious/immunologic process but watch closely 2. Hypothyroidism resume the home [place] Thy[facility] and check a TSH/free T4 3 DVT prophylaxis will be with Lovenox 4 fibromyalgia with ongoing follow-up with possible rheumatology in the outpatient setting. 5 vitamin D deficiency check level CODE STATUS is full Patient will be admitted under observation status Patient was evaluated with alpha-beta medication device. Provider is located in [facility] VTE Deep Vein Thrombosis/Pulmonary Embolism Present on Admission: No
--- NOTE | 2023-11-06 03:32 | DI.ECHO.S_ITS ---
[facility]---------+ [facility] +---------+ : : [address] : : : : [id number] : : : : Phone: [phone]+ Echocardiogram Report + + :Name: ERIC MONTES DE OCA Study Date: 11/06/2023 Height: 66 in : :[facility] ReadingLocation: Weight: 184 lb: : Gender: Female BSA: 1.9 m2 : :: 1970 Age: 53 yrs : :Reason For Study: TIA : :Ordering Physician: HOLA, : :KASEY Islas Performed By: Maxi Webber : :Referring: UNSPECIFIED : + + Interpretation Summary The left ventricle is normal in size and wall thickness. Left ventricular systolic function appears normal without focal wall motion abnormalities. The ejection fraction is estimated to be 55-60%. Diastolic parameters suggest probable normal left ventricular diastolic function and normal filling pressures. The right ventricular systolic pressure is estimated to be at least 27 mmHg based on an estimated right atrial pressure of 3 mm Hg. The left atrial size is normal. Injection of contrast documented no interatrial shunt. There is no significant valvular heart disease. The aortic root is normal size. Procedure: A two-dimensional transthoracic echocardiogram with color flow and Doppler was performed. The study quality was technically adequate. There is no prior echocardiogram noted for this patient. A saline contrast injection was performed to assess for cardiac shunting. The patient was in normal sinus rhythm during the exam. The heart rate ranged between 80-90 bpm during the study. Left Ventricle: The left ventricle is normal in size and wall thickness. Left ventricular systolic function appears normal without focal wall motion abnormalities. The ejection fraction is estimated to be 55-60%. Diastolic parameters suggest probable normal left ventricular diastolic function and normal filling pressures. Right Ventricle: The right ventricle is normal in size and function. The right ventricular systolic function is normal. Atria: The left atrial size is normal. Right atrial size is normal. Injection of contrast documented no interatrial shunt. Mitral Valve: The mitral valve is normal in structure and function. There is no mitral valve stenosis. There is no mitral regurgitation noted. Aortic Valve: The aortic valve is trileaflet. There is no aortic valve stenosis. No aortic regurgitation is present. Tricuspid Valve: The tricuspid valve is normal in structure and function. There is no tricuspid stenosis. There is mild tricuspid regurgitation. The right ventricular systolic pressure is estimated to be at least 27 mmHg based on an estimated right atrial pressure of 3 mm Hg. Pulmonic Valve: The pulmonic valve is not well visualized. There is no pulmonic valvular stenosis. There is no pulmonic valvular regurgitation. There is no significant valvular heart disease. Great Vessels: The aortic root is normal size. The dimensions of the ascending aorta are normal. The IVC is of normal diameter and collapses greater than 50% with a sniff. This suggests a low right atrial pressure of 3 mm Hg. Pericardium/ Pleura There is no pericardial effusion. There is no pleural effusion. MMode/2D Measurements & Calculations LVIDd: 4.0 cm LVOT diam: 2.2 cm LVIDs: 3.0 cm Ao root diam: 2.9 cm FS: 25.6 % asc Aorta Diam: 3.4 cm IVSd: 1.0 cm Ao Arch Diam (Prox Trans): 2.4 cm LVPWd: 0.89 cm LV tan. diameter/BSA (cm/m^2): 2.1 LV sys. diameter/BSA (cm/m^2): 1.5 LA A2 area: 12.9 cm2 RA long axis: 4.3 cm LA A4 area: 12.7 cm2 RA area: 11.7 cm2 LA length (vol): 4.5 cm RA vol: 26.7 ml LA vol: 31.0 ml RA : 13.9 ml/m2 LA vol index: 16.1 ml/m2 IVC diam: 1.6 cm RVD1 (basal): 2.9 cm RVD2 (mid): 2.7 cm TAPSE: 2.5 cm Doppler Measurements & Calculations Ao V2 max: 129.0 cm/sec LVOT Max Heath: 88.1 cm/sec Ao V2 mean: 92.1 cm/sec LV V1 max P.1 mmHg Ao max P.7 mmHg LV V1 VTI: 21.6 cm Ao mean P.7 mmHg RICHARD(I,D): 3.0 cm2 Ao V2 VTI: 27.0 cm RICHARD(V,D): 2.6 cm2 sev ratio: 0.80 RICHARD indexed to BSA (cm^2/m^2): 1.6 MV E max heath: 81.8 cm/sec TR max heath: 247.0 cm/sec MV A max heath: 81.4 cm/sec TR max P.4 mmHg MV E/A: 1.0 PA V2 max: 74.3 cm/sec Med Peak E' Heath: 7.8 cm/sec PA V2 mean: 49.1 cm/sec E/E' med: 10.5 PA mean P.1 mmHg Lat Peak E' Heath: 9.5 cm/sec PA pr(Accel): 32.8 mmHg E/E' lat: 8.6 E/e' average: 9.6 MV dec time: 0.17 sec SV(LVOT): 82.0 ml Reading Physician:04:20 PM
[2023-11-06 06:39] LABS: Add Manual Diff / Slide Review NO; Basophils Absolute Auto 0 /uL (0-100); Basophils Percent Auto 0.6 % (0-2); Eosinophils Absolute Auto 0 /uL (0-450); Eosinophils Percent Auto 0.3 % (2-4); Hematocrit 38.9 % (36-46); Lymphocytes Absolute Auto 2500 /uL (1100-4500); Lymphocytes Percent Auto 38.3 % (25-40); Mean Corpuscular HGB Conc 33.5 % (30-36); Mean Corpuscular Hemoglobin 29.8 PG (26-34); Mean Corpuscular Volume 89.1 fL (80-100); Monocytes Absolute Auto 300 /uL (0-900); Monocytes Percent Auto 4.4 % (3-14); Neutrophils Absolute Auto 3700 /uL (1500-7000); Neutrophils Percent Auto 56.4 % (50-75); Platelet Count 213 X10^3/uL (150-400); Red Blood Cell Count 4.37 X10^6/uL (4.0-5.2); Red Cell Distribution Width 13.2 % (11.6-14.8); White Blood Cell Count 6.5 X10^3/uL (4.5-11.0)
[2023-11-06 06:44] LABS: Prothrombin Time 11.9 SECONDS (9.4-12.5)
[2023-11-06 06:49] LABS: Alanine Aminotransferase 20 IU/L (<35); Albumin Globulin Ratio 1.2 (1.0-2.8); Alkaline Phosphatase 56 U/L (38-126); Aspartate Aminotransferase 24 IU/L (14-36); BUN Creatinine Ratio 24.1 (6-22); Bilirubin Total 0.6 mg/dL (0.2-1.3); Blood Urea Nitrogen 13 mg/dL (7-17); Calcium 8.7 mg/dL (8.4-10.2); Carbon Dioxide 26 mmol/L (22-32); Chloride 105 mmol/L (98-107); Estimated Glomerular Filt Rate > 60 mL/min (>60); Globulin 3.3 g/dL (1.7-4.1); Glucose 91 mg/dL (70-100); HEMOLYSIS < 15 (0-50); Potassium 3.8 mmol/L (3.4-5.1); Sodium 141 mmol/L (137-145); Total Protein 7.3 g/dL (6.3-8.2)
[2023-11-06 07:00] LABS: Cholesterol 209 mg/dL (140-199); HDL Cholesterol 60 mg/dL (40-60); LDL Cholesterol Calculated 133 mg/dL (<100); Triglycerides 78 mg/dL (35-150)
--- NOTE | 2023-11-06 07:18 | P.HP_ITS ---
History of Present Illness History of Present Illness Date Patient Seen: 11/06/23 Time Patient Seen: 07:18 Chief complaint: dizzy, unable to walk, not feeling well Narrative: From Night doctor: 51 years old female with past medical history fibromyalgia, hypothyroidism, hyperlipidemia, chronic back pain/headache, vitamin D deficiency and other medical issues was brought to the emergency room for weakness on the left side of the body and subsequently weekly labs and the right upper and lower extremity. She had an infrared spa treatment for the fibromyalgia around 11:30 in the morning and noticed initially weakness on the left side and subsequently improved and weakness in the right side as well. She is simply assumed it was a pinched nerve and went to basketball in the evening. In the middle of the game, she asked to help out of the stance because she was not feeling well with significant gait instability. Spouse also noted some abnormality in the speech that was slow and slurred. Denies any blurred vision diplopia trauma. Did have recent fibromyalgia flareup after recent hike but not into the [place] about 2 weeks ago. No recent other travels or infections. Denies any chest pain or shortness of breath. Denies any nausea vomiting. CT angio of the head and neck showed no significant intracranial or vascular abnormality. In the ED, patient had a choking episode with any oral intake of pills or with fluids. Aspirin was given per rectally and stroke neurology were consulted. Not a candidate for tPA since outside the 4-hour window. Recommended admission for further workup including MRI In talking with her she has been under a lot of stress with family dynamics recently. She also has chronic fibromyalgia and headaches. She suffered a flare of her fibromyalgia just 2 weeks ago. She also notes an infrared treatment as noted above which lasted about 30 minutes. She had a swallow evaluation where she was coughing at 3:30 a.m. in the morning but since then has been handling secretions without difficulty or coughing. She feels about 90% better and describes more of a global fatigue. There is no focal numbness weakness of arms or legs. She denies any visual changes or speech difficulties. She has no history of TIA, stroke, or smoking. She does have postural orthostatic hypotension which has been diagnosed in her post COVID. She denies any back pain, or bowel or bladder difficulties. [facility] Medical History Vitamin D deficiency Chronic headaches Heart palpitations Chronic neck pain Chronic back pain Hearing decreased Mumps Measles Chicken pox Hypothyroidism Hyperlipidemia Surgical History Anesthesia History of tonsillectomy Family History Father No problems noted. Grandmother Stroke Grandfather History of heart disease Grandmother History of heart disease Cancer Social History household members: spouse and family Smoking Status: Never smoker alcohol intake: current Meds Home Medications and Allergies Home Medications Medication Instructions Recorded Confirmed Type epinephrine 0.3 mg/0.3 mL 0.3 ml SUBCUT ONCE #2 ea 04/10/21 11/05/23 Rx injection syringe thyroid (pork) 30 mg tablet 30 mg PO DAILY #90 tabs 02/27/23 11/05/23 Rx ([place] Thyroid) Allergies Allergy/AdvReac Type Severity Reaction Status Date / Time ibuprofen [IBUPROFEN] Allergy Unknown Verified 11/05/23 22:00 Penicillins [PENICILLINS] Allergy Unknown Verified 11/05/23 22:00 [place] AdvReac Intermediate Uncoded 03/03/22 15:18 Review of Systems Review of Systems Narrative: All else reviewed and otherwise unremarkable except as noted in the history and physical. Exam Vital Signs (past 8 hours): - 11/05/23 23:30 11/05/23 23:30 11/05/23 23:45 Temperature Pulse Rate 102 H Respiratory Rate 21 Blood Pressure 114/72 118/76 Pulse Oximetry 96 Oxygen Flow Rate 11/05/23 23:45 11/06/23 00:00 11/06/23 00:00 Temperature Pulse Rate 101 H 100 H Respiratory Rate 16 19 Blood Pressure 130/77 Pulse Oximetry 97 97 Oxygen Flow Rate 11/06/23 00:15 11/06/23 00:15 11/06/23 00:30 Temperature Pulse Rate 102 H Respiratory Rate 17 Blood Pressure 119/74 113/70 Pulse Oximetry 96 Oxygen Flow Rate 11/06/23 00:30 11/06/23 00:45 11/06/23 00:45 Temperature Pulse Rate 100 H 101 H Respiratory Rate 16 14 Blood Pressure 115/76 Pulse Oximetry 96 96 Oxygen Flow Rate 11/06/23 01:00 11/06/23 01:00 11/06/23 02:31 Temperature 97.8 F Pulse Rate 101 H 94 H Respiratory Rate 15 16 Blood Pressure 117/73 120/83 Pulse Oximetry 96 97 Oxygen Flow Rate 0 11/06/23 06:07 Temperature 97.8 F Pulse Rate 76 Respiratory Rate 15 Blood Pressure 92/62 Pulse Oximetry 96 Oxygen Flow Rate 0 Oxygen Delivery Method Room Air Oxygen Flow Rate 0 Narrative Exam Narrative: NAD, calm, fluent speech. Normocephalic skull, EOMI, anicteric sclera, symmetric pupils. Neck is supple, midline trachea. No adenopathy. Lungs are clear with normal rate and effort. Heart is regular without murmur, gallop, or rub. Abdomen is soft and non tender. Extremities are free of edema, she has normal pedal and radial pulses. Skin is free of rash or lesions, joints are not swollen or deformed. Judgment is relatively normal. Cranial nerves are grossly intact, motor strength is 5/5 both arms, normal finger to nose maneuvers bilaterally. Both legs are weak when she tries to lift them straight off from the bed but she can. She is relatively good 5- out of 5 plantar and dorsiflexion of both feet. Language is normal. Objective ECG Impression: NSR Imaging CT scan - head: Radiologist's impression: HEAD CT ANGIOGRAPHY: Anterior circulation: Intracranial internal carotid arteries are normal in size and flow. The flow within the paired anterior cerebral arteries is normal and symmetric. The flow within the middle cerebral arteries is normal and symmetric. The anterior communicating artery is seen. No aneurysms are seen. Posterior circulation: Visualized portions of the vertebral arteries demonstrate normal caliber, and join to form a normal appearing basilar artery. origin of the right posterior cerebral artery. Flow within the posterior cerebral arteries is normal and symmetric. No aneurysms are seen. NECK CT ANGIOGRAPHY: Carotid system: There is an aberrant right subclavian artery arising from the distal aortic arch and coursing posterior to the esophagus. The right common carotid artery arises directly from the aortic arch and is patent. The common carotid arteries demonstrate normal caliber and courses. The bifurcation regions are both widely patent. The internal carotid arteries demonstrate normal calibers and courses. Mild calcifications of the bilateral internal carotid siphons. Posterior circulation: The origins of the vertebral arteries both appear widely patent. The more superior extracranial portions of both vertebral arteries also demonstrate normal courses and calibers. They join to form a normal appearing basilar artery. Soft tissues: Visualized neck soft tissues demonstrate no suspicious abnormalities. Bones: No suspicious bony lesions. Visualized cervical spine appears normally aligned. IMPRESSION: No significant intracranial arterial abnormality is seen. No significant abnormality is seen within the arteries of the neck. Incidental retroesophageal aberrant right subclavian artery. CT Brain: No acute intracranial pathology. MRI - head: Radiologist's impression: IMPRESSION: No findings of acute or subacute infarction can be seen. Labs 11/06/23 06:22 11/06/23 06:22 Labs: Laboratory Results - last 24 hr 11/05/23 11/05/23 11/05/23 21:22 22:27 22:27 WBC 9.3 RBC 4.80 Hgb 14.3 Hct 42.3 MCV 88.0 MCH 29.8 MCHC 33.9 RDW 13.0 Plt Count 247 Neut % (Auto) 37.7 L Lymph % (Auto) 56.6 H [place] % (Auto) 4.3 Eos % (Auto) 0.7 L Baso % (Auto) 0.7 Neut # (Auto) 3500 Lymph # (Auto) 5200 H [place] # (Auto) 400 Eos # (Auto) 100 Baso # (Auto) 100 PT 10.7 INR 0.9 APTT 39 H Sodium 140 Potassium 3.6 Chloride 102 Carbon Dioxide 26 BUN 17 Creatinine 0.57 Estimated GFR > 60 BUN/Creatinine Ratio 29.8 H Glucose 108 H Calcium 9.4 Magnesium Total Bilirubin 0.6 AST 29 ALT 23 Alkaline Phosphatase 70 Total Creatine Kinase 86 Troponin I < 0.012 Total Protein 8.8 H Albumin 4.8 Globulin 4.0 Albumin/Globulin Ratio 1.2 Triglycerides Cholesterol LDL Cholesterol, Calc HDL Cholesterol TSH 10.1 H Thyroxine (T4) 6.31 Urine Color Yellow Urine Appearance Clear Urine pH 6.5 Normal Ur Specific [place] 1.010 Urine Protein Negative Urine Glucose (UA) Negative Urine Ketones Negative Urine Occult Blood Negative Urine Nitrate Negative Urine Bilirubin Negative Urine Urobilinogen 0.2 Ur Leukocyte Esterase Negative Urine RBC 0-1/hpf Urine WBC 0-1/hpf Ur Squamous Epith Cells 1-5 /hpf Urine Bacteria Occasional (0-1) Ur Culture Indicated? Cult not indicated Vol Urine Centrifuged 10ml (spun) U Opiates 300ng/mL cut Negative Ur Oxycodone Screen Negative Urine Methadone Screen Negative Ur Barbiturates Screen Negative U Tricyclic Antidepress Negative Ur Phencyclidine Scrn Negative Ur Amphetamines Screen Negative U Methamphetamines Scrn Negative Ur MDMA Scrn (Ecstasy) Negative U Benzodiazepines Scrn Negative Urine Cocaine Screen Negative U Marijuana (THC) Screen Negative Urine Specific [place] Normal Ethyl Alcohol < 10 Ur Creatinine Normal 11/06/23 06:22 WBC 6.5 RBC 4.37 Hgb 13.0 Hct 38.9 MCV 89.1 MCH 29.8 MCHC 33.5 RDW 13.2 Plt Count 213 Neut % (Auto) 56.4 Lymph % (Auto) 38.3 [place] % (Auto) 4.4 Eos % (Auto) 0.3 L Baso % (Auto) 0.6 Neut # (Auto) 3700 Lymph # (Auto) 2500 [place] # (Auto) 300 Eos # (Auto) 0 Baso # (Auto) 0 PT 11.9 INR 1.0 APTT Sodium 141 Potassium 3.8 Chloride 105 Carbon Dioxide 26 BUN 13 Creatinine 0.54 Estimated GFR > 60 BUN/Creatinine Ratio 24.1 H Glucose 91 Calcium 8.7 Magnesium 2.0 Total Bilirubin 0.6 AST 24 ALT 20 Alkaline Phosphatase 56 Total Creatine Kinase Troponin I Total Protein 7.3 Albumin 4.0 Globulin 3.3 Albumin/Globulin Ratio 1.2 Triglycerides 78 Cholesterol 209 H LDL Cholesterol, Calc 133 H HDL Cholesterol 60 TSH Thyroxine (T4) Urine Color Urine Appearance Urine pH Ur Specific [place] Urine Protein Urine Glucose (UA) Urine Ketones Urine Occult Blood Urine Nitrate Urine Bilirubin Urine Urobilinogen Ur Leukocyte Esterase Urine RBC Urine WBC Ur Squamous Epith Cells Urine Bacteria Ur Culture Indicated? Vol Urine Centrifuged U Opiates 300ng/mL cut Ur Oxycodone Screen Urine Methadone Screen Ur Barbiturates Screen U Tricyclic Antidepress Ur Phencyclidine Scrn Ur Amphetamines Screen U Methamphetamines Scrn Ur MDMA Scrn (Ecstasy) U Benzodiazepines Scrn Urine Cocaine Screen U Marijuana (THC) Screen Urine Specific [place] Ethyl Alcohol Ur Creatinine Assessment & Plan Assessment & Plan narrative: 1. Weakness with numbness on the left side and subsequently on the right side with gait instability and dysarthria that happened after her infrared treatment for the fibromyalgia (transient bilateral neurologic symptoms). Present on admission and nearly resolved. In the ED, the symptoms have not resolved fully and there was a concern for an acute CVA but by the time of arrival to the floor, patient is now able to talk and able to move the upper and lower extremities bilaterally. The tingling and numbness have improved. The patient is now able to speak full sentences. Workup as a TIA and check an MRI of the brain/echocardiogram for further evaluation while monitoring in the telemetry. Watch and check for any hypoglycemic events/electrolyte imbalance/infections. The labs are fairly unremarkable. UA is negative for WBCs/leukocyte esterase. Urine toxicology screen is negative. Monitor closely for now. Will keep the patient n.p.o. except for medications until evaluated by speech to rule out a silent aspiration. Did do a swallow evaluation at the bedside and appears to be swallowing without any overt coughing. Already received aspirin per rectally in the emergency room. Initiate IV fluids while the patient is n.p.o. no clinical evidence of other infectious/immunologic process but watch closely 2. Hypothyroidism, present on admission and stable. - resume the home [place] Thyroid and check a TSH/free T4 3. DVT prophylaxis will be with Lovenox 4. Fibromyalgia, present on admission and stable. - with ongoing follow-up with possible rheumatology in the outpatient setting. 5. Vitamin D deficiency, present on admission and stable. - check level 6. Chronic Headache, present on admission and active. 7. Stress and anxiety, present on admission and active. 8. Postural hypotension, present on admission and active. Plan: She is feeling nearly improved. We will continue aspirin and Lipitor. She does like to avoid systemic medications for her other problems such as fibromyalgia and is currently not taking duloxetine nor she tried that in the past. If she improves to baseline within the next several hours she can likely discharge tonight otherwise we will observe her until tomorrow morning to continue to monitor her neurologic symptoms. 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
[2023-11-06] MEDS: SODIUM CHLORIDE 0.9% 1,000 ML 50 ML IV (09:12)
--- NOTE | 2023-11-06 10:13 | OT.IP.EVAL ---
Addendum entered and electronically signed by Fariba Alcantara OT 11/06/23 12:41: esign Original Note: Current Diagnoses Transient cerebral ischemic attack, unspecified (11/06/23) Past Medical History (Last Reviewed 11/06/23 @ 07:19 by Darshan Ch MD) Chicken pox Chronic back pain Chronic headaches Chronic neck pain Hearing decreased Heart palpitations Hyperlipidemia Hypothyroidism Measles Mumps Vitamin D deficiency Surgical History (Last Reviewed 11/06/23 @ 07:19 by Darshan Ch MD) Anesthesia History of tonsillectomy Occupational Therapy Inpatient Evaluation/Re-Eval M1 PT/OT-IP Prior Functional Status Start: 11/06/23 11:02 Freq: NEEDED Status: Active Protocol: Document 11/06/23 11:02 [facility] (Rec: 11/06/23 11:27 [facility] [id number]) Medical Review Prior Functional Status Communication Independent Mobility and Gait Pt states did not use any devices to ambulate. Activities of Daily Living and IADL's Pt states completely independent with all ADL, IADL , drives and takes care of her 4 year old granddaughter. Social History Household Members spouse,family Living Arrangements House Number of Stairs To Enter/Railing? One platform step to enter. Home Environment Standard Height Toilet,Tub/ Shower Home Equipment Straight Cane Additional Social History Comment Pt's father in law has a cane. M2 OT-IP Current Condition Start: 11/06/23 11:02 Freq: Status: Active Protocol: Document 11/06/23 11:02 [facility] (Rec: 11/06/23 11:27 [facility] [id number]) Occupational Therapy Current Condition Current Condition Evaluation Date 11/06/23 Treatment Diagnosis possible TIA, decreased mobility Diagnosis Onset Date 11/06/23 M3 OT- IP Subjective and Pain Start: 11/06/23 11:02 Freq: Status: Active Protocol: Document 11/06/23 11:02 [facility] (Rec: 11/06/23 11:27 [facility] [id number]) OT- Subjective Occupational Therapy Visit Type Type Initial Evaluation Visit Start Time 10:13 Visit Stop Time 11:00 Occupational Therapy Visit Comments Patient Comments Pt agreed to get up to brush her teeth. Pt is NPO but nurse states ok for pt to brush her teeth. Patient/Caregiver Goals To go home. OT Pain Assessment Pain When Pain Assessed At Rest Pain Present Pain Present Pain Reported Location Medial Head Intensity 6 Scale Used Numeric (0 - 10) M4 OT- IP ADL's Start: 11/06/23 11:02 Freq: Status: Active Protocol: Document 11/06/23 11:02 [facility] (Rec: 11/06/23 11:27 [facility] [id number]) OT QIE-Dlpt-Hosqdfu Comments OT Self-Feeding Comments Pt is NPO. OT ADL-Grooming General Evaluation Grooming Ability Standby Assistance Areas Needing Assistance Retrieving/Set-up of Grooming Items Comments OT Grooming Comments Pt having to lean on the sink for balance in order to do grooming needs and also with the FWW in front of her. OT ADL-Oral Care General Eval Oral Care Ability Independent Comments Oral Care Comments Able to do while leaning on the sink. OT ADL-Dressing Comments OT Dressing Comments Pt too tired to do at this time. OT ADL-Toileting Comments OT Toileting Comments NOt performed but was able to get to the bathroom earlier with nursing aid. OT ADL-Bathing Comments OT Bathing Comments Not performed. Suggested pt get a shower chair for home use at this time due to her decreased dynamic balance. M5 OT- IP IADL's Start: 11/06/23 11:02 Freq: Status: Active Protocol: Document 11/06/23 11:02 [facility] (Rec: 11/06/23 11:27 [facility] [id number]) OT-Instrumental Activities of Daily Living Deficits IADL Deficits Identified Deficits Home Safety Awareness Home Safety Comments Pt a bit groggy, needing a times increased time to respond and get the words out and would benefit from assist for all needs at this time. M6 OT- IP Functional Cognition Start: 11/06/23 11:02 Freq: Status: Active Protocol: Document 11/06/23 11:02 [facility] (Rec: 11/06/23 11:27 [facility] [id number]) Cognitive Factors Limiting Selfcare Function Cognitive Ability Level of Alertness Alert,Lethargic Patient Orientation Name,Age,Birthday,Month,Date, Year,Day of Week,Place, Situation Attention Span Ability Capable of Focused Attention, Capable of Sustained Attention Ability to Follow Commands Able to Follow One Step Commands Cognitive Comments Cognitive Assessment Comments Pt able to follow commands but a bit lethargic and at times needing time to respond, also at times having trouble to get the words out. Pt to benefit from a formal cognitive assessment. OT- Vision and Hearing OT- Hearing Assessment OT- Hearing Assessment WFL OT- Vision Assessment Visual Acuity Glasses For Reading Visual Attentiveness WFL Occular Pursuits WFL Visual Convergence WFL Visual [place] WFL Diplopia Absent Vision Assessment Comments Pt is sensitive to light. M7 OT- IP Mobility and Balance Start: 11/06/23 11:02 Freq: Status: Active Protocol: Document 11/06/23 11:02 [facility] (Rec: 11/06/23 11:27 [facility] [id number]) OT- Bed Mobility Assessment Rolling Level of Assistance Standby Assistance,Bedrails Supine to Sit Supine to Sit Assist Standby Assistance,Bedrails Sit to Supine Sit to Supine Assist Standby Assistance Scooting Scooting to Edge of Bed Standby Assistance OT-Transfer Assessment Sit to and From Stand Sit to and from Stand Contact Guard Assistance Transfers Transfer Ability Contact Guard Assistance Technique Transfer Destination Bed Transfer Technique Stand Step Pivot Devices Transfer Assistive Devices Gait Belt,Front Wheeled Walker Comments Mobility Comments Pt use of bedrail to get to the edge of the bed. BP supine 134/99, sitting 129/97 and standing 138/85 pt states just having a headache, nursing aware. CGA with FWW as pt unsteady with the FWW and heavy use of arms on the FWW. OT- Balance Assessment Sitting Balance and Reactions Static Sitting Balance Ability Normal Dynamic Sitting Balance Ability Good Standing Balance and Reactions Static Standing Balance Ability Fair Dynamic Standing Balance Ability Fair Comments Other Balance Tests/Deviations/Treatment Pt havin to use the FWW to : assist with her balance as pt is unsteady on her feet. M8 OT- IP Objective Assessments Start: 11/06/23 11:02 Freq: Status: Active Protocol: Document 11/06/23 11:02 [facility] (Rec: 11/06/23 11:27 [facility] [id number]) OT Gross Range of Motion Upper Extremity Range of Motion Assessment Within Functional Limits OT Strength Upper Extremity Strength Assessment Within Functional Limits Comments Strength Comments BUE 4/5 to 5/5 from proximal to distal. OT- Coordination Assessment Upper Extremity Finger to Nose Test Within Functional Limits Comments Coordination Comments To further assess her coordination. OT-Muscle Tone Assessment Muscle Tone WNL Yes OT Sensation Assessment Comments Summary Comments Intact for light touch. Pt needing mild increased time to process proprioception and kinesthesia on the left side versus right side. Edema Edema Absent M9 OT- IP Assessment and Plan Start: 11/06/23 11:02 Freq: Status: Active Protocol: Document 11/06/23 11:02 [facility] (Rec: 11/06/23 11:27 [facility] [id number]) OT Summary Assessment and Plan Potential Rehabilitation Potential Good Analytic Complexity at Evaluation Moderate Summary OT Impairments Pain,Strength,Balance, Functional Cognition, Functional Mobility,Self- Feeding,Grooming,Dressing, Toileting,Bathing,Toilet Transfers,Shower Transfers, Activity Tolerance Progress Towards Goals Slow Progress due to Pain,Slow Progress due to Medical Issues,Slow Progress due to Cognition Assessment Summary Pt MOD complexity and here due to possible TIA and decreased mobility. Main barriers are decreased balance, strength, difficulty to get her words out, pain and now needgn use of a FWW for balance. Pending progress and medical finding if having to go home would benefit from 24 available assist at home with home health versus outpt. Goals Self-Feeding Goal Independent Grooming Goal Independent Dressing Goal Independent Toileting Goal Independent Bathing Goal Independent Toilet Transfer Goal Independent Shower Transfer Goal Independent Days to Meet Goals 15 Frequency of Treatment Frequency Of Treatment Once a Day Treatment Plan OT Treatment Plan ADL Training,Functional Cognition Training,Functional Mobility,Patient/Family Education,Discharge Planning Discharge Recommendations OT Discharge Recommendations Home with 24/7 Assist Available,Home Health,Acute Rehab,Outpatient PT Home Equipment Needs BSC, shower chair, FWW Transportation Needs at Discharge Private Vehicle
--- NOTE | 2023-11-06 11:00 | OT.IP.EVAL ---
Current Diagnoses Transient cerebral ischemic attack, unspecified (11/06/23) Past Medical History (Last Reviewed 11/06/23 @ 07:19 by Darshan Ch MD) Chicken pox Chronic back pain Chronic headaches Chronic neck pain Hearing decreased Heart palpitations Hyperlipidemia Hypothyroidism Measles Mumps Vitamin D deficiency Surgical History (Last Reviewed 11/06/23 @ 07:19 by Darshan Ch MD) Anesthesia History of tonsillectomy Occupational Therapy Inpatient Evaluation/Re-Eval M1 PT/OT-IP Prior Functional Status Start: 11/06/23 11:02 Freq: NEEDED Status: Active Protocol: Document 11/06/23 11:02 [facility] (Rec: 11/06/23 11:27 [facility] [id number]) Medical Review Prior Functional Status Communication Independent Mobility and Gait Pt states did not use any devices to ambulate. Activities of Daily Living and IADL's Pt states completely independent with all ADL, IADL , drives and takes care of her 4 year old granddaughter. Social History Household Members spouse,family Living Arrangements House Number of Stairs To Enter/Railing? One platform step to enter. Home Environment Standard Height Toilet,Tub/ Shower Home Equipment Straight Cane Additional Social History Comment Pt's father in law has a cane. M2 OT-IP Current Condition Start: 11/06/23 11:02 Freq: Status: Active Protocol: Document 11/06/23 11:02 [facility] (Rec: 11/06/23 11:27 [facility] [id number]) Occupational Therapy Current Condition Current Condition Evaluation Date 11/06/23 Treatment Diagnosis possible TIA, decreased mobility Diagnosis Onset Date 11/06/23 M3 OT- IP Subjective and Pain Start: 11/06/23 11:02 Freq: Status: Active Protocol: Document 11/06/23 11:02 [facility] (Rec: 11/06/23 11:27 [facility] [id number]) OT- Subjective Occupational Therapy Visit Type Type Initial Evaluation Visit Start Time 10:13 Visit Stop Time 11:00 Occupational Therapy Visit Comments Patient Comments Pt agreed to get up to brush her teeth. Pt is NPO but nurse states ok for pt to brush her teeth. Patient/Caregiver Goals To go home. OT Pain Assessment Pain When Pain Assessed At Rest Pain Present Pain Present Pain Reported Location Medial Head Intensity 6 Scale Used Numeric (0 - 10) M4 OT- IP ADL's Start: 11/06/23 11:02 Freq: Status: Active Protocol: Document 11/06/23 11:02 [facility] (Rec: 11/06/23 11:27 [facility] [id number]) OT [id number] Comments OT Self-Feeding Comments Pt is NPO. OT ADL-Grooming General Evaluation Grooming Ability Standby Assistance Areas Needing Assistance Retrieving/Set-up of Grooming Items Comments OT Grooming Comments Pt having to lean on the sink for balance in order to do grooming needs and also with the FWW in front of her. OT ADL-Oral Care General Eval Oral Care Ability Independent Comments Oral Care Comments Able to do while leaning on the sink. OT ADL-Dressing Comments OT Dressing Comments Pt too tired to do at this time. OT ADL-Toileting Comments OT Toileting Comments NOt performed but was able to get to the bathroom earlier with nursing aid. OT ADL-Bathing Comments OT Bathing Comments Not performed. Suggested pt get a shower chair for home use at this time due to her decreased dynamic balance. M5 OT- IP IADL's Start: 11/06/23 11:02 Freq: Status: Active Protocol: Document 11/06/23 11:02 [facility] (Rec: 11/06/23 11:27 [facility] [id number]) OT-Instrumental Activities of Daily Living Deficits IADL Deficits Identified Deficits Home Safety Awareness Home Safety Comments Pt a bit groogy, needing a times increased time to respond and get the words out and would benefit from assist for all needs at this time. M6 OT- IP Functional Cognition Start: 11/06/23 11:02 Freq: Status: Active Protocol: Document 11/06/23 11:02 [facility] (Rec: 11/06/23 11:27 [facility] [id number]) Cognitive Factors Limiting Selfcare Function Cognitive Ability Level of Alertness Alert,Lethargic Patient Orientation Name,Age,Birthday,Month,Date, Year,Day of Week,Place, Situation Attention Span Ability Capable of Focused Attention, Capable of Sustained Attention Ability to Follow Commands Able to Follow One Step Commands Cognitive Comments Cognitive Assessment Comments Pt able to follow commands but a bit lethargic and at times needing time to respond, also at times having trouble to get the words out. Pt to benefit from a formal cognitive assessment. OT- Vision and Hearing OT- Hearing Assessment OT- Hearing Assessment WFL OT- Vision Assessment Visual Acuity Glasses For Reading Visual Attentiveness WFL Occular Pursuits WFL Visual Convergence WFL Visual Perkins WFL Diplopia Absent Vision Assessment Comments Pt is sensitive to light. M7 OT- IP Mobility and Balance Start: 11/06/23 11:02 Freq: Status: Active Protocol: Document 11/06/23 11:02 [facility] (Rec: 11/06/23 11:27 [facility] [id number]) OT- Bed Mobility Assessment Rolling Level of Assistance Standby Assistance,Bedrails Supine to Sit Supine to Sit Assist Standby Assistance,Bedrails Sit to Supine Sit to Supine Assist Standby Assistance Scooting Scooting to Edge of Bed Standby Assistance OT-Transfer Assessment Sit to and From Stand Sit to and from Stand Contact Guard Assistance Transfers Transfer Ability Contact Guard Assistance Technique Transfer Destination Bed Transfer Technique Stand Step Pivot Devices Transfer Assistive Devices Gait Belt,Front Wheeled Walker Comments Mobility Comments Pt use of bedrail to get to the edge of the bed. BP supine 134/99, sitting 129/97 and standing 138/85 pt states just having a headache, nursing aware. CGA with FWW as pt unsteady with the FWW and heavy use of arms on the FWW. OT- Balance Assessment Sitting Balance and Reactions Static Sitting Balance Ability Normal Dynamic Sitting Balance Ability Good Standing Balance and Reactions Static Standing Balance Ability Fair Dynamic Standing Balance Ability Fair Comments Other Balance Tests/Deviations/Treatment Pt having to use the FWW to : assist with her balance as pt is unsteady on her feet. M8 OT- IP Objective Assessments Start: 11/06/23 11:02 Freq: Status: Active Protocol: Document 11/06/23 11:02 [facility] (Rec: 11/06/23 11:27 [facility] [id number]) OT Gross Range of Motion Upper Extremity Range of Motion Assessment Within Functional Limits OT Strength Upper Extremity Strength Assessment Within Functional Limits Comments Strength Comments BUE 4/5 to 5/5 from proximal to distal. OT- Coordination Assessment Upper Extremity Finger to Nose Test Within Functional Limits Comments Coordination Comments To further assess her coordination. OT-Muscle Tone Assessment Muscle Tone WNL Yes OT Sensation Assessment Comments Summary Comments Intact for light touch. Pt needing mild increased time to process proprioception and kinesthesia on the left side versus right side. Edema Edema Absent M9 OT- IP Assessment and Plan Start: 11/06/23 11:02 Freq: Status: Active Protocol: Document 11/06/23 11:02 [facility] (Rec: 11/06/23 11:27 [facility] [id number]) OT Summary Assessment and Plan Potential Rehabilitation Potential Good Analytic Complexity at Evaluation Moderate Summary OT Impairments Pain,Strength,Balance, Functional Cognition, Functional Mobility,Self- Feeding,Grooming,Dressing, Toileting,Bathing,Toilet Transfers,Shower Transfers, Activity Tolerance Progress Towards Goals Slow Progress due to Pain,Slow Progress due to Medical Issues,Slow Progress due to Cognition Assessment Summary Pt MOD complexity and here due to possible TIA/CVA and decreased mobility. Main barriers are decreased balance, strength, difficulty to get her words out, pain and now needing use of a FWW for balance. Pending progress and medical finding if having to go home would benefit from 13/04 available assist at home with home health versus acute rehab/ outpt. Goals Self-Feeding Goal Independent Grooming Goal Independent Dressing Goal Independent Toileting Goal Independent Bathing Goal Independent Toilet Transfer Goal Independent Shower Transfer Goal Independent Days to Meet Goals 15 Frequency of Treatment Frequency Of Treatment Once a Day Treatment Plan OT Treatment Plan ADL Training,Functional Cognition Training,Functional Mobility,Patient/Family Education,Discharge Planning Discharge Recommendations OT Discharge Recommendations Home with 13/04 Assist Available,Home Health,Acute Rehab,Outpatient PT Home Equipment Needs BSC, shower chair, FWW Transportation Needs at Discharge Private Vehicle
[2023-11-06] MEDS: LORazepam 2 MG/ML INJ 1 MG IV ×2 (11:08→21:17)
--- NOTE | 2023-11-06 14:40 | PT.IIE ---
Current Diagnoses Transient cerebral ischemic attack, unspecified (11/06/23) Surgical History (Last Reviewed 11/06/23 @ 07:19 by Darshan Ch MD) Anesthesia History of tonsillectomy Medical History (Last Reviewed 11/06/23 @ 07:19 by Darshan Ch MD) Chicken pox Chronic back pain Chronic headaches Chronic neck pain Hearing decreased Heart palpitations Hyperlipidemia Hypothyroidism Measles Mumps Vitamin D deficiency Physical Therapy Inpatient Evaluation/Re-Eval M1 PT/OT-IP Prior Functional Status Start: 11/06/23 17:42 Freq: NEEDED Status: Active Protocol: Document 11/06/23 14:40 [facility] (Rec: 11/06/23 18:10 [facility] [id number]) Medical Review Prior Functional Status Medical History Reviewed Yes Communication able to make needs known Mobility and Gait pt stated that she was independent with all mobilities and ambulation without AD Activities of Daily Living and IADL's per OT note: Pt states completely independent with all ADL, IADL, drives and takes care of her 4 year old granddaughter. Social History Household Members spouse,family Living Arrangements House Number of Floors (Floors) Two Floors Number of Stairs To Enter/Railing? 1 step to enter without rails pt has 13 steps without rails but bilateral rosen to get to bedroom level but pt may stay on first level of the house if needed and sleep on the couch Home Environment Standard Height Toilet,Tub/ Shower Home Equipment Front Wheel Walker,Bedside Commode Additional Social History Comment pt has her spouse, daughter and granddaughter at home and spouse will be able to assist if needed M2 PT-IP Current Condition Start: 11/06/23 17:42 Freq: NEEDED Status: Active Protocol: Document 11/06/23 14:40 [facility] (Rec: 11/06/23 18:10 [facility] [id number]) Physical Therapy Current Condition Current Condition Evaluation Date 11/06/23 Treatment Diagnosis weakness; r/o TIA/CVA; difficulty in walking Onset Date 11/06/23 M3 PT-IP Subjective Start: 11/06/23 17:42 Freq: NEEDED Status: Active Protocol: Document 11/06/23 14:40 [facility] (Rec: 11/06/23 18:10 AB [id number]) Subjective Physical Therapy Visit Type Type Initial Evaluation Visit Start Time 14:40 Visit Stop Time 15:30 Number of DEPARTMENTAL BUYER Visits 0 Physical Therapy Visit Comments Patient Comments agreeable to do PT M4 PT-IP Mobility and Gait Start: 11/06/23 17:42 Freq: NEEDED Status: Active Protocol: Document 11/06/23 14:40 [facility] (Rec: 11/06/23 18:10 [facility] [id number]) PT-Bed Mobility Assessment Supine to Sit Supine to Sit Standby Assistance PT-Transfer Assessment Sit to and From Stand Sit to and from Stand Contact Guard Assistance,1 Person Assistance,Use of Upper Extremities Equipment Transfer Assistive Device Gait Belt,Front Wheeled Walker Orthotic/Prosthetic Devices or Brace: No Transfers Transfer Destination Chair Transfer Technique ambulated Transfer Ability Level of Assist Contact Guard Assistance,1 Person Assistance,Use of Upper Extremities Comments Mobility Comments pt supine in bed and family in room. obtained PLOF and home setup. BP ins upine: 115/78. pt completed supine to sit SBA and cues. able to sit on EOB SBA. c/o slight dizziness. pt needed frequent rest breaks in between tasks. BP checked: 130/101. pt rested sitting and BP rechecked after a few minutes: 138/95. completed sit to stand cGA and ambulated in room using FWW CGA ~ 20 ft. presents with unsteady guarded gait with narrow BAR requiring cues for steadiness and alignment. pt sat on the chair and rested again. caregiver training conducted. spouse was able put safety belt on pt. assisted pt with ambulation ~ 30 ft. educated on stair climbing. pt completed up/down platform step using FWW with spouse assisting initially with PT providing instructions but not needing cues on 2nd attempt. pt ambulated back to her room and sat on the chair . BP checked: 125/89. positioned pt on the chair. call light and table placed within reach. informed pt regarding equipement needs and safety. informed pt that it is safer for her to stay on the first level of the house due to her decrease activity tolerance and might not be able to safely complete 13 steps. pt and family agreed. informed nurse regarding BP. Gait Assessment Gait Gait Assistance Required: Contact Guard Assist Distance (Feet) 30 Able to Maintain Weight Bearing Status Yes During Gait Assistive Devices Assistive Device Gait Belt,Front Wheeled Walker Orthotic/Prosthetic Devices or Brace: No Gait Deviations General Gait Pattern Ataxic,Decreased Stride Length ,Decreased Feet Clearance,Step -to Gait Factors Limiting Gait Function Factors Limiting Gait Function Decreased Activity Tolerance, Decreased Strength,Poor Balance,Poor Safety Awareness Stair Climbing Assessment Evaluation Level of Assist On Stairs Minimal Assistance Devices Stair Climbing Assistive Devices Front Wheel Walker Technique/Endurance Stair Climbing Direction Ascend and Descend Stair Climbing Technique Step to Step Number of Steps Climbed 1 Query Text: Stair Climbing Set # Repetitions (reps) 2 PT-Balance Assessment Sitting Balance and Reactions Static Sitting Balance Ability Normal Dynamic Sitting Balance Ability Good Standing Balance and Reactions Static Standing Balance Ability Fair Dynamic Standing Balance Ability Fair Device Used FWW M5 PT-IP Objective Assessments Start: 11/06/23 17:42 Freq: NEEDED Status: Active Protocol: Document 11/06/23 14:40 [facility] (Rec: 11/06/23 18:10 [facility] [id number]) Orientation Orientation/Cognition Level of Alertness Alert Orientation Name,Place,Situation Language Function Ability No Deficits Noted Safety Awareness Decreased Safety Awareness Memory Description No Deficits Noted Gross Range of Motion Lower Extremity ROM Assessment Within Functional Limits Strength Lower Extremity Strength Assessment Right Impaired Hip 3+/5 Knee 3+/5 Coordination Assessment Gross Coordination Gross Coordination WNL Muscle Tone Muscle Tone WNL Yes M6 PT-IP Treatment Start: 11/06/23 17:42 Freq: NEEDED Status: Active Protocol: Document 11/06/23 14:40 [facility] (Rec: 11/06/23 18:10 [facility] [id number]) Physical Therapy Treatment Education Education Provided Safety M7 PT-IP Assessment and Plan Start: 11/06/23 17:42 Freq: NEEDED Status: Active Protocol: Document 11/06/23 14:40 [facility] (Rec: 11/06/23 18:10 AB [id number]) PT Summary Assessment and Plan Potential Rehabilitation Potential Fair Status of Condition at Evaluation Evolving Summary Impairments Pain,ROM,Strength,Balance, Coordination,Sensation,Tone, Cognition,Bed Mobility, Transfers,Gait,Activity Tolerance Assessment Summary pt is a 53 y/o F who presented to the ED due to weakness. pt admitted to r/o CVA. imaging unremarkable for CVA. pt with h/o fibromyalgia. MMT on BLE conducted and pt has R sided lower leg weakness. pt also presents with decrease activity tolerance needing frequent rest breaks in between activities. pt plans to go home with spouse to assist and caregiver training conducted. pt will benefit from HHPT. Goals Bed Mobility Goal Independent Transfer Goal Independent,Front Wheeled Walker Gait Goal Independent,Front Wheel Walker Gait Distance 200 Other Goals up/down 1 step SBA up/down 13 steps B rosen SBA Days to Meet Goals 10 Frequency of Treatment Frequency Of Treatment Once a Day Treatment Plan Physical Therapy Treatment Plan Bed Mobility Training,Transfer Training,Gait Training, Therapeutic Exercise,Balance Retraining,Discharge Planning, Hot or Cold Pack,Neuromuscular Re-ed,Coordination Retraining Precautions Other Precautions falls Recommendations To Nursing Amount of Assist Needed 1 Person Assist Discharge Recommendations PT Discharge Recommendations Home with 13/04 Assist Available,Home Health Transportation Needs at Discharge Private Vehicle
--- NOTE | 2023-11-06 17:06 | CM.DANOTE ---
DCP Assessment Note Pt is a 53yo F here following a stroke. PCP Dian[facility] and self pay [employer] reviewed EMR. Per provider in morning rounds, home today vs tomorrow likely with family. Per OT, rec HH vs home with family vs acute. Per PT, rec HH. [employer] entered room and introduced self and role. Pt accompanied by spouse, MIL, and two adult dtrs t bedside. Pt completely indep prior to stroke. Pt spouse bought walker, commode, and shower seat. Dtr interested in renting hospital bed in short term for pt to have downstairs, calling [employer] now. Pt reports eager to dc home. [employer] reviewed requirements and barriers to HH. Unsure of any HH agencies that take her insurance. Pt preference is HH vs OP therapy but understands it might not be a possibility. No preference for agency. Pt reports continuing to feel weaker than normal and is hopeful a good nights rest will increase her strength and she won't need HH. Plan: CM team will continue to pursue HH referral/which agencies take her insurance? Home with family with OP vs HH PT/OT/speech. CM team will follow closely. SEAN Canales Discharge Planning/Care Management CM Discharge Assessment Start: 11/06/23 17:04 Freq: Status: Active Protocol: Document 11/06/23 17:04 (Rec: 11/06/23 17:06 [id number]) Discharge Planning Assessment Assigned Certified Phlebotomy Technician SEAN Gramajo DPOA/Assigned Designee Name Yusra Villaseñor Spouse Contact Information [phone] Advance Directives? No History Provided By Patient Prior Living Arrangements House Household Members spouse,family Type of transporation used prior to Drives own vehicle admit Independent with ADL's Yes Is patient alert and oriented? Yes Comment did not use any DME before, but spoues purchased commode, walker, and shower seat for pt Patient/Family Preference Home with Home Health Comment Unsure if any HH agencies that accept pt's insurance. Barriers to Discharge No Discharge Plan Home Transportation Arrangement family in POV SNF/HH Preference no preference Whiteboard Updated in Patient Room with Yes name and ext. # of Certified Phlebotomy Technician Review Status In Process Next Review Type Continued Stay Review
[2023-11-07 01:22] VITALS: BP 102/73; PULSE 70; RESP 17; TEMP 36.2; O2SAT 96
[2023-11-07 05:00] VITALS: BP 98/64; PULSE 75; RESP 16; TEMP 36.2; O2SAT 97
[2023-11-07] MEDS: SODIUM CHLORIDE 0.9% 1,000 ML 50 ML IV (05:10)
[2023-11-07] MEDS: ASPIRIN EC 81 MG TABLET PO (08:18)
[2023-11-07] MEDS: ACETAMINOPHEN 325 MG TABLET 650 MG PO (08:18)
[2023-11-07] MEDS: THYROID, PORK 30 MG TABLET PO (08:18)
[2023-11-07 09:00] VITALS: BP 105/73; PULSE 104; RESP 16; TEMP 36.5; O2SAT 96
--- NOTE | 2023-11-07 10:19 | PT.IPTN ---
Current Diagnoses Transient cerebral ischemic attack, unspecified (11/06/23) Physical Therapy Treatment Note M2 PT-IP Current Condition Start: 11/06/23 17:42 Freq: NEEDED Status: Active Protocol: Document 11/06/23 14:40 AB (Rec: 11/06/23 18:10 AB [id number]) Physical Therapy Current Condition Current Condition Evaluation Date 11/06/23 Treatment Diagnosis weakness; r/o TIA/CVA; difficulty in walking Onset Date 11/06/23 M3 PT-IP Subjective Start: 11/06/23 17:42 Freq: NEEDED Status: Active Protocol: Document 11/07/23 10:42 TS (Rec: 11/07/23 10:51 TS [id number]) Subjective Physical Therapy Visit Type Type Treatment Note Visit Start Time 10:19 Visit Stop Time 10:42 Number of STEEL RULE DIE MAKER APPRENTICE Visits 1 Physical Therapy Visit Comments Patient Comments Pt found resting in bed, reports feeling better today, c/o pain in L hip and bilateral knees. Pt is agreeable to PT. M4 PT-IP Mobility and Gait Start: 11/06/23 17:42 Freq: NEEDED Status: Active Protocol: Document 11/07/23 10:42 TS (Rec: 11/07/23 10:51 TS [id number]) PT-Bed Mobility Assessment Supine to Sit Supine to Sit Independent Sit to Supine Sit to Supine Independent Scooting Scooting to Edge of Bed Independent PT-Transfer Assessment Sit to and From Stand Sit to and from Stand Independent Equipment Transfer Assistive Device Gait Belt,Front Wheeled Walker Orthotic/Prosthetic Devices or Brace: No Comments Mobility Comments Supine to sit Ind with HOB elevated. STS ind with use of FWW, pt dmeonstrates good balance with no retroleaning. She ambulated in hallway with a cautious step thru gait with FWW ~200' SBA. She performed stairs x6 with rails SBA with cues for step sequencing. Pt had some difficulty remembering to ascend with strong side and descend with weaker LE. Pt ambulated back to room, was left in bed, family/friend in room, all needs met. Gait Assessment Gait Gait Assistance Required: Standby Assistance Distance (Feet) 200 Able to Maintain Weight Bearing Status Yes During Gait Assistive Devices Assistive Device Gait Belt,Front Wheeled Walker Orthotic/Prosthetic Devices or Brace: No Gait Deviations General Gait Pattern Ataxic,Decreased Stride Length ,Decreased Feet Clearance Factors Limiting Gait Function Factors Limiting Gait Function Decreased Activity Tolerance, Decreased Strength,Difficulty Following Directions,Pain,Poor Balance Comments Gait Comments See mobility comments Stair Climbing Assessment Evaluation Level of Assist On Stairs Standby Assistance Devices Stair Climbing Assistive Devices Left Railing Technique/Endurance Stair Climbing Direction Ascend and Descend Stair Climbing Technique Step Over Step Number of Steps Climbed 6 Comments Stair Climbing Comments See mobility comments PT-Balance Assessment Sitting Balance and Reactions Static Sitting Balance Ability Normal Dynamic Sitting Balance Ability Good Standing Balance and Reactions Static Standing Balance Ability Good Dynamic Standing Balance Ability Fair Device Used FWW M5 PT-IP Objective Assessments Start: 11/06/23 17:42 Freq: NEEDED Status: Active Protocol: Document 11/06/23 14:40 AB (Rec: 11/06/23 18:10 AB [id number]) Orientation Orientation/Cognition Level of Alertness Alert Orientation Name,Place,Situation Language Function Ability No Deficits Noted Safety Awareness Decreased Safety Awareness Memory Description No Deficits Noted Gross Range of Motion Lower Extremity ROM Assessment Within Functional Limits Strength Lower Extremity Strength Assessment Right Impaired Hip 3+/5 Knee 3+/5 Coordination Assessment Gross Coordination Gross Coordination WNL Muscle Tone Muscle Tone WNL Yes M6 PT-IP Treatment Start: 11/06/23 17:42 Freq: NEEDED Status: Active Protocol: Document 11/07/23 10:42 TS (Rec: 11/07/23 10:51 TS [id number]) Physical Therapy Treatment Education Education Provided Safety M7 PT-IP Assessment and Plan Start: 11/06/23 17:42 Freq: NEEDED Status: Active Protocol: Document 11/07/23 10:42 TS (Rec: 11/07/23 10:51 TS [id number]) PT Summary Assessment and Plan Potential Rehabilitation Potential Fair Summary Impairments Pain,ROM,Strength,Balance, Coordination,Sensation,Tone, Cognition,Bed Mobility, Transfers,Gait,Activity Tolerance Progress Towards Goals Progressing Toward Goals Assessment Summary Delfina is making good progress with her mobility this session . She Ind for bed mobility and STS with use of FWW. She progressed her ambulation to ~ 200'SBA with use of FWW, ambulates with a slow/cautious gait. She progressed to stairs x6 with use of handrails SBA< had no buckling or LOB. PT is recommending home with assist and outpatient PT to improve strength and activity tolerance. Goals Bed Mobility Goal Independent Transfer Goal Independent,Front Wheeled Walker Gait Goal Independent,Front Wheel Walker Gait Distance 200 Other Goals up/down 1 step SBA up/down 13 steps B rosen SBA Days to Meet Goals 10 Frequency of Treatment Frequency Of Treatment Once a Day Treatment Plan Physical Therapy Treatment Plan Bed Mobility Training,Transfer Training,Gait Training, Therapeutic Exercise,Balance Retraining,Discharge Planning, Hot or Cold Pack,Neuromuscular Re-ed,Coordination Retraining Precautions Other Precautions falls Recommendations To Nursing Amount of Assist Needed Standby Assistance Discharge Recommendations PT Discharge Recommendations Home with Assistance, Outpatient PT Transportation Needs at Discharge Private Vehicle
--- NOTE | 2023-11-07 11:05 | CM.DPNOTE ---
DCP Cont According to Dr Weinberg, patient expected to discharge today. Therapies have cleared patient for return home w/outpatient PT No needs identified from this CM team Plan: Discharge home w/family to assist as needed, close outpatient follow up JW
[2023-11-07 12:00] VITALS: BP 112/82; PULSE 88; RESP 18; TEMP 36.4; O2SAT 96
--- NOTE | 2023-11-07 13:02 | PM.DS.1 ---
History of Present Illness History of Present Illness Chief complaint: dizzy, unable to walk, not feeling well Narrative: 51 years old female with past medical history fibromyalgia, hypothyroidism, hyperlipidemia, chronic back pain/headache, vitamin D deficiency and other medical issues was brought to the emergency room for weakness on the left side of the body and subsequently weekly labs and the right upper and lower extremity. She had an infrared spa treatment for the fibromyalgia around 11:30 in the morning and noticed initially weakness on the left side and subsequently improved and weakness in the right side as well. She is simply assumed it was a pinched nerve and went to basketball in the evening. In the middle of the game, she asked to help out of the stance because she was not feeling well with significant gait instability. Spouse also noted some abnormality in the speech that was slow and slurred. Denies any blurred vision diplopia trauma. Did have recent fibromyalgia flareup after recent hike but not into the [place] about 2 weeks ago. No recent other travels or infections. Denies any chest pain or shortness of breath. Denies any nausea vomiting. CT angio of the head and neck showed no significant intracranial or vascular abnormality. In the ED, patient had a choking episode with any oral intake of pills or with fluids. Aspirin was given per rectally and stroke neurology were consulted. Not a candidate for tPA since outside the 4-hour window. Recommended admission for further workup including MRI In talking with her she has been under a lot of stress with family dynamics recently. She also has chronic fibromyalgia and headaches. She suffered a flare of her fibromyalgia just 2 weeks ago. She also notes an infrared treatment as noted above which lasted about 30 minutes. She had a swallow evaluation where she was coughing at 3:30 a.m. in the morning but since then has been handling secretions without difficulty or coughing. She feels about 90% better and describes more of a global fatigue. There is no focal numbness weakness of arms or legs. She denies any visual changes or speech difficulties. She has no history of TIA, stroke, or smoking. She does have postural orthostatic hypotension which has been diagnosed in her post COVID. She denies any back pain, or bowel or bladder difficulties. Discharge Providers Provider Date of admission: 11/06/23 00:10 Discharge Date: 11/07/23 Primary care physician: Abelardo Bustamante MD Consults: 11/06/23 03:30 Consult to Physical Therapy Evaluate & Treat Comment: Physician Instructions: Evaluate and Treat 11/06/23 03:32 Consult to Occupational Therapy Evaluate & Treat Comment: Physician Instructions: Evaluate and treat Discharge provider: Fortino Weinberg DO Summary Hospital Course Discharge Diagnosis: 1. Weakness with numbness on the left side and subsequently on the right side with gait instability and dysarthria that happened after her infrared treatment for the fibromyalgia (transient bilateral neurologic symptoms). Present on admission and nearly resolved. In the ED, the symptoms have not resolved fully and there was a concern for an acute CVA but by the time of arrival to the floor, patient is now able to talk and able to move the upper and lower extremities bilaterally. The tingling and numbness have improved. The patient is now able to speak full sentences. Workup as a TIA and check an MRI of the brain/echocardiogram for further evaluation while monitoring in the telemetry. Watch and check for any hypoglycemic events/electrolyte imbalance/infections. The labs are fairly unremarkable. UA is negative for WBCs/leukocyte esterase. Urine toxicology screen is negative. Monitor closely for now. Passed swallow eval. 2. Hypothyroidism, present on admission and stable. - resume the home [place] Thyroid and check a TSH/free T4 -TSH 10.4 with normal T4 -defer to PCP to possibly raise her thyroid meds 3. DVT prophylaxis will be with Lovenox 4. Fibromyalgia, present on admission and stable. - with ongoing follow-up with possible rheumatology in the outpatient setting. 5. Vitamin D deficiency, present on admission and stable. - 25 hydroxy vit D level 19.9 - defer to PCP to start vitamin D supplements 6. Chronic Headache, present on admission and active. 7. Stress and anxiety, present on admission and active. 8. Postural hypotension, present on admission and active. Hospital Course: Admitted for stroke work-up which was all negative. Her symptoms were likely due to her fibromyalgia. Exam Vital Signs (past 8 hours): - 11/07/23 09:00 11/07/23 12:00 Temperature 97.7 F 97.5 F L Pulse Rate 104 H 88 Respiratory Rate 16 18 Blood Pressure 105/73 112/82 Pulse Oximetry 96 96 Oxygen Flow Rate 0 0 Oxygen Delivery Method Room Air Oxygen Flow Rate 0 Narrative Exam Narrative: NAD, calm, fluent speech. Normocephalic skull, EOMI, anicteric sclera, symmetric pupils. Neck is supple, midline trachea. No adenopathy. Lungs are clear with normal rate and effort. Heart is regular without murmur, gallop, or rub. Abdomen is soft and non tender. Extremities are free of edema, she has normal pedal and radial pulses. Skin is free of rash or lesions, joints are not swollen or deformed. Judgment is relatively normal. Cranial nerves are grossly intact, motor strength is 5/5 both arms, normal finger to nose maneuvers bilaterally. Both legs are weak when she tries to lift them straight off from the bed but she can. She is relatively good 5- out of 5 plantar and dorsiflexion of both feet. Language is normal. Objective Labs 11/06/23 06:22 11/06/23 06:22 [facility] Medical History Vitamin D deficiency Chronic headaches Heart palpitations Chronic neck pain Chronic back pain Hearing decreased Mumps Measles Chicken pox Hypothyroidism Hyperlipidemia Surgical History Anesthesia History of tonsillectomy Family History Father No problems noted. Grandmother Stroke Grandfather History of heart disease Grandmother History of heart disease Cancer Social History household members: spouse and family Smoking Status: Never smoker alcohol intake: current Discharge Plan Discharge Plan Patient Disposition: Home Provider Discharge Comment: You were not found to have had a stroke. Please follow-up with your PCP. Discharge orders & Medications Prescriptions: Continued [place] Thyroid 30 mg tablet 30 mg PO DAILY Qty: 90 3RF epinephrine 0.3 mg/0.3 mL syringe 0.3 ml SUBCUT ONCE Qty: 2 0RF Rx Instructions: as a single dose; may repeat once Follow up/Referrals: Abelardo Bustamante MD [Primary Care Provider] - 2 Weeks Visit Report/Discharge Packet Stand Alone Forms: Patient Portal/API, Stroke Signs & Symptoms Discharge Data Primary Care Provider: Abelardo Bustamante Quality VTE Deep Vein Thrombosis/Pulmonary Embolism Present on Admission: No
--- NOTE | 2023-11-07 13:49 | PC.NURSE ---
Day shift: Paperwork signed and all questions answered. No new MD scripts. Has all personal belongings. Left unit via WC at approx 1340. Taken to car by this field underwriter. Family is driving her home. They live local.
== END 2023-11-07 13:51 | disposition home or self-care (01) | DRG 556 ==
LOC: ED 23:26 → AC 11-06 00:13
PROVIDERS: Admitting Provider Internal Medicine; Emergency Provider Emergency Medicine; PCP Family Medicine; Referring Provider Emergency Medicine; Visit Provider Internal Medicine
DX: M79.7 Fibromyalgia (principal); E03.9 Hypothyroidism, unspecified; E55.9 Vitamin D deficiency, unspecified; R51.9 Headache, unspecified; F41.9 Anxiety disorder, unspecified; F43.9 Reaction to severe stress, unspecified; I95.1 Orthostatic hypotension; R47.81 Slurred speech; R47.1 Dysarthria and anarthria
CPT/HCPCS: 36415; 70450; 70496; 70498; 70551; 80053; 80061; 80305; 80320; 81001; 82550; 82962; 83735; 84436; 84443; 84484; 85025; 85610; 85730; 93005; 93010; 93306; 97116; 97162; 97166; 97530; 97535; 99285; 99291; J2060; Q9967

== ENCOUNTER → 2024-01-26 09:03 | Outpatient (CLI) | payer OTHER, SELFPAY ==
[2023-11-06 02:07] VITALS: BMI 29.7
[2024-01-26 10:20] LABS: Erythrocyte Sedimentation Rate 5 MM/HR (0-20)
[2024-01-26 10:34] LABS: C-Reactive Protein Quant < 0.5 mg/dL (<1.0)
[2024-01-26 10:53] LABS: Free T3, Triiodothyronine Free 5.51 pg/mL (2.77-5.27); Free T4, Direct Thyroxine 0.94 ng/dL (0.78-2.19)
[2024-01-26 11:06] LABS: Thyroid Stimulating Hormone 1.95 uIU/mL (0.47-4.68)
[2024-01-26 11:20] LABS: Vitamin B12 Reflex MMA if <400 461 pg/mL (239-931)
== END ==
PROVIDERS: Family Provider Family Medicine; PCP Family Medicine; Referring Provider Family Medicine; Visit Provider Family Medicine
DX: M79.7 Fibromyalgia (principal); E55.9 Vitamin D deficiency, unspecified; R51.9 Headache, unspecified; G89.29 Other chronic pain; E03.9 Hypothyroidism, unspecified; E78.5 Hyperlipidemia, unspecified; E53.8 Deficiency of other specified B group vitamins
CPT/HCPCS: 36415; 82607; 84439; 84443; 84481; 85651; 86038; 86140

== ENCOUNTER → 2024-02-08 08:35 | Outpatient (CLI) | payer OTHER, SELFPAY ==
[2023-11-06 02:07] VITALS: BMI 29.7
--- NOTE | 2024-02-08 08:36 | DI.RAD.S_ITS ---
PROCEDURE: FL BARIUM SWALLOW W SPEECH INDICATIONS: swallowing issues post stroke-like episode COMPARISON: None. TECHNIQUE: Examination was conducted in conjunction with speech pathology per standard protocol. In the lateral projection, filming was performed of the patient swallowing. AP projection filming may also be performed with patient swallowing. COMPARISON: FINDINGS: Function: The oral preparatory phase appears normal, with proper containment. The subsequent oral propulsive phase, pharyngeal phase, and esophageal phase of swallowing also appear normal with all proffered substances. No laryngotracheal penetration or aspiration. No pathologic vallecular pooling. Moderate esophageal dysmotility, with poor peristalsis, resulting in stasis of contrast material within the esophagus. Morphology: No cricopharyngeal bar is identified. No cervical esophageal webs. No Zenker's diverticulum. No strictures. IMPRESSION: No aspiration or penetration. Moderate esophageal dysmotility. Dictated by: Lars Kauffman M.D. on 02/08/2024 at 10:51 Approved by: Lars Kauffman M.D. on 02/08/2024 at 12:18
--- NOTE | 2024-02-08 11:14 | ST.SWALLOW ---
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 Pt has PMH that includes hypothyroidism, hyperlipidemia , fibromyalgia, heart palpitations. Pt was recently admitted to with s/sx of TIA (11/05/23). Pt reports difficulty swallowing solids. She described a sensation of foods getting stuck (points to sternal notch). She also noted when she swallows, she has an overwhelming sense of inability to breath. She stated she has regurgitated undigested foods. pt denies difficulty swallowing liquids. Subjective Observations Pt was seated in the fluoroscopy chair with directions and procedures described for her. She indicated she understood and agreed to proceed. Patient Positioning Position View Lat-A/P Imaging Lateral View Textures Administered Trials Presented Thin Liquid via Spoon (IDDSI 0 ),Thin Liquid via Cup (IDDSI 0 ),Extremely Thick Liquid via Spoon (IDDSI 4),Regular (IDDSI 7) Barium Tablet Yes The IDDSI Framework Protocol: IDDSI.1 Oral Impairment Source: The Modified Barium Swallow Impairment Profile (MBSImP??) Lip Closure Interlabial escape; no progression to anterior lip Tongue Control During Bolus Hold Cohesive bolus between tongue to palatal seal Bolus Preparation/Mastication Timely & efficient chewing & mashing Bolus Transport/Lingual Motion Brisk tongue motion Oral Residue Complete oral clearance Initiation of Pharyngeal Swallow Bolus head at pyriforms Additional Oral Impairment Observations OME and DKS were observed to be WNL. Mastication observed with rotary chew pattern. Good bolus formation, control and AP transition. Dentition adequate for mastication. Pharyngeal Impairment Source: The Modified Barium Swallow Impairment Profile (MBSImP??) Soft Palate Elevation No bolus between soft palate & pharyngeal wall Laryngeal Elevation Comp.sup.move.thyroid cart.w/ comp.approx.arytenoids to epiglot petiole Anterior Hyoid Excursion No anterior movement Epiglottic Movement Complete inversion Laryngeal Vestibular Closure Complete; no air/contrast in laryngeal vestibule Pharyngeal Stripping Wave Present - complete Pharyngoesophageal Segment Opening Complete distention & complete duration; no obstruction of flow Tongue Base Retraction Narrow column of contrast/air betwn tongue base & post. pharyngeal wall Pharyngeal Residue Trace residue within/on pharyngeal structures Location Valleculae Additional Pharyngeal Impairment Mild reduction in tongue base Observations retraction strength Reduced hyoid movement forward Good epiglottic inversion No laryngeal penetration or tracheal aspiration observed A/P View Textures Administered Trials Presented Thin Liquid via Cup (IDDSI 0) The IDDSI Framework Protocol: IDDSI.1 A/P View Observations Pharyngeal Contraction Complete Esophageal Clearance Upright Position Complete clearance; esophageal coating Vocal Fold Function Good Esophageal Function WFL Clinical Impressions Dysphagia Type WNL Patient Appropriate for Therapy No Recommendations Diet Comments No diet change recommended
== END ==
PROVIDERS: Family Provider Family Medicine; PCP Family Medicine; Referring Provider Family Medicine; Visit Provider Family Medicine
DX: K22.4 Dyskinesia of esophagus (principal); R13.10 Dysphagia, unspecified
CPT/HCPCS: 74230; 92611

== ENCOUNTER 2024-02-12 13:07 | Emergency (ER) | payer OTHER, SELFPAY ==
[2023-11-06 02:07] VITALS: BMI 29.7
[2024-02-12] VITALS (9 sets, daily range): BP systolic 113–159; BP diastolic 72–95; PULSE 89–98; RESP 16–23; TEMP 36.7–36.8; O2SAT 96–100; BMI 28.9
--- NOTE | 2024-02-12 13:11 | DI.RAD.S_ITS ---
PROCEDURE: XR CHEST 1V INDICATIONS: chest pain TECHNIQUE: One view of the chest was acquired. COMPARISON: None. FINDINGS: Surgical changes and devices: None. Lungs and pleura: Lungs are clear. No pleural effusions or pneumothorax. Mediastinum: Mediastinal contours appear normal. Heart size is normal. Bones and chest wall: No suspicious bony lesions. Overlying soft tissues appear unremarkable. IMPRESSION: No acute cardiopulmonary abnormality is seen. Dictated by: Sidney Downey M.D. on 02/12/2024 at 13:58 Approved by: Sidney Downey M.D. on 02/12/2024 at 13:58
[2024-02-12 13:31] LABS: Add Manual Diff / Slide Review NO; Basophils Absolute Auto 0 /uL (0-100); Basophils Percent Auto 0.7 % (0-2); Eosinophils Absolute Auto 0 /uL (0-450); Eosinophils Percent Auto 0.4 % (2-4); Hematocrit 43.8 % (36-46); Hemoglobin 14.8 g/dL (12.0-16.0); Lymphocytes Absolute Auto 3100 /uL (1100-4500); Lymphocytes Percent Auto 47.2 % (25-40); Mean Corpuscular HGB Conc 33.7 % (30-36); Mean Corpuscular Hemoglobin 29.7 PG (26-34); Mean Corpuscular Volume 88.4 fL (80-100); Monocytes Absolute Auto 400 /uL (0-900); Monocytes Percent Auto 5.6 % (3-14); Neutrophils Absolute Auto 3100 /uL (1500-7000); Neutrophils Percent Auto 46.1 % (50-75); Platelet Count 264 X10^3/uL (150-400); Red Blood Cell Count 4.96 X10^6/uL (4.0-5.2); Red Cell Distribution Width 12.7 % (11.6-14.8); White Blood Cell Count 6.6 X10^3/uL (4.5-11.0)
[2024-02-12 13:37] LABS: Prothrombin Time 11.2 SECONDS (9.4-12.5)
[2024-02-12 13:39] LABS: PTT Partial Thromboplastin Tim 42 SECONDS (25.1-36.5)
[2024-02-12 13:43] LABS: Alanine Aminotransferase 18 IU/L (<35); Albumin 4.8 g/dL (3.5-5.0); Albumin Globulin Ratio 1.3 (1.0-2.8); Alkaline Phosphatase 75 U/L (38-126); Aspartate Aminotransferase 26 IU/L (14-36); BUN Creatinine Ratio 23.6 (6-22); Bilirubin Total 0.7 mg/dL (0.2-1.3); Blood Urea Nitrogen 13 mg/dL (7-17); Carbon Dioxide 27 mmol/L (22-32); Chloride 105 mmol/L (98-107); Creatine Kinase 63 U/L (30-135); Estimated Glomerular Filt Rate > 60 mL/min (>60); Globulin 3.8 g/dL (1.7-4.1); Glucose 99 mg/dL (70-100); HEMOLYSIS 15 (0-50); Lipase 144 U/L (23-300); Magnesium 2.2 mg/dL (1.6-2.3); Potassium 3.5 mmol/L (3.4-5.1); Sodium 142 mmol/L (137-145); Total Protein 8.6 g/dL (6.3-8.2)
[2024-02-12 13:53] LABS: Troponin I < 0.012 ng/mL (0.01-0.034)
--- NOTE | 2024-02-12 14:13 | ED.CHESTPAIN ---
HPI - Chest Pain General Chief Complaint: Chest Pain Stated Complaint: Chest pain, Time Seen by Provider: 02/12/24 13:52 Source: patient Mode of arrival: Wheelchair Limitations: no limitations History of Present Illness HPI narrative: Patient 53-year-old female history of hypothyroidism presenting today with chest pain. She was seen and evaluated by Cardiology on 12/29/2023 she apparently was hospitalized in October for a TIA. She has had palpitations with exertional activities but are usually brief. She had an echocardiogram in October that did not show any wall motion abnormality with a normal EF. She has had a ZIO monitor she has not sure if those results. She reports that she has had extreme fatigue ongoing for awhile. She is bursts of energy she had a burst of energy about 5 days ago she does state and clean in the felt like she was extremely short of breath almost passed out and needed to rest. She is noted to have some blotchy rash on her chest she is unaware of it. She has no tongue swelling or lip swelling or obvious dyspnea. She reports that today she was going to get imaging done for her fibromyalgia a friend or family member saw her she was extremely pale lightheaded patient reports that she was extremely short of breath. Not really having any chest pain. But apparently she is these episodes where she just extremely fatigued and weak with some shortness of breath. She has no known clotting disorder or history of DVT or PE. She does have recent history of probable TIA. She is being worked up for lupus but no results yet. Related Data Previous Rx's Medication Instructions Recorded epinephrine 0.3 mg/0.3 mL 0.3 ml SUBCUT ONCE #2 ea 12/04/23 injection syringe rizatriptan 10 mg tablet (Maxalt) See Rx Instructions PO .COMPLEX 01/01/24 #30 tabs thyroid (pork) 15 mg tablet 15 mg PO DAILY #90 tabs 02/01/24 ([place] Thyroid) thyroid (pork) 30 mg tablet 30 mg PO DAILY #90 tabs 02/01/24 ([place] Thyroid) prednisone 20 mg tablet 20 mg PO DAILY #5 tabs 02/12/24 Allergies Allergy/AdvReac Type Severity Reaction Status Date / Time Penicillins [PENICILLINS] Allergy Intermediate Hives Verified 02/12/24 13:21 ibuprofen [IBUPROFEN] Allergy Unknown Verified 02/12/24 13:21 Bos[place]ellya AdvReac Intermediate Uncoded 01/01/24 10:07 Patient History Medical History Vitamin D deficiency Chronic headaches Heart palpitations Chronic neck pain Chronic back pain Hearing decreased Mumps Measles Chicken pox Hypothyroidism Hyperlipidemia Surgical History Anesthesia History of tonsillectomy Family History Father No problems noted. Grandmother Stroke Grandfather History of heart disease Grandmother History of heart disease Cancer Social History household members: spouse and family Smoking Status: Never smoker alcohol intake: current Smoking Status: Never smoker alcohol intake frequency: other Substance Use Type: does not use Exam Initial Vital Signs Initial Vital Signs: Vital Signs Temperature 98.1 F 02/12/24 13:18 Pulse Rate 97 H 02/12/24 13:18 Respiratory Rate 18 02/12/24 13:18 Blood Pressure 159/95 H 02/12/24 13:18 Pulse Oximetry 100 02/12/24 13:18 Oxygen Delivery Method Room Air 02/12/24 13:18 GENERAL: Alert pleasant 23-year-old female HEENT: Head atraumatic,EOMI, pupils reactive, face symmetric, no obvious tongue swelling lip swelling CARDIOVASCULAR: Regular rate and rhythm without murmurs, rubs or gallops. RESPIRATORY: Breath sounds equal bilaterally, no wheezes rales or rhonchi. ABDOMEN: Soft, nontender. Normoactive bowel sounds all 4 quadrants. No guarding or rebound. EXTREMITIES: Normal range of motion, no clubbing or edema. Neurovascularly intact NEUROLOGICAL: Alert and oriented x4.Normal gait and speech. Cranial nerves II through XII grossly intact. Good aomttz-wg-pbek, good tlod-nt-zoor, strength equal bilaterally, no dysarthria or aphasia, sensation in tact to soft touch bilaterally, no visual changes, no facial droop extremely difficult and weak to sit up SKIN: Urticaria noted on chest blanchable no petechiae Scores GCS [place] coma scale eye opening: Spontaneous [place] coma scale verbal response: Orientated [place] coma scale motor response: Obey commands [place] coma scale total score: 15 NIH Stroke Scale Level of Conciousness: Alert, keenly responsive Ask month/age: Answers both questions correctly. Open/close eyes, close hand: Performs both tasks correctly Best gaze horizontal: Normal Visual alfonso: No visual loss Facial palsy: Normal symetrical movement Left arm drift: No drift for full 10 sec Right arm drift: No drift for full 10 sec Left leg drift: No drift for full 5 sec Right leg drift: No drift for full 5 sec Limb ataxia: Absent Sensory on face/arms/legs: Normal, no sensory loss Best language: No aphasia, normal Dysarthria: Normal Extinction or inattention: No abnormality Total NIH Stroke scale score: 0 Course Orders Ordered: Discontinued Medications Methylprednisolone (Methylprednisolone 125 Mg/2 Ml Vial) 125 mg IV NOW ONE Stop: 02/12/24 14:44 Last Admin: 02/12/24 14:57 Dose: 125 mg Documented By: JASON Vital Signs Vital signs: Vital Signs - 8 hr 02/12/24 13:18 02/12/24 13:30 02/12/24 13:30 Temperature 98.1 F Pulse Rate 97 H 96 H Respiratory Rate 18 17 Blood Pressure 159/95 H 129/73 Pulse Oximetry 100 99 Oxygen Delivery Method Room Air 02/12/24 14:00 02/12/24 14:00 02/12/24 14:30 Temperature Pulse Rate 92 H 95 H Respiratory Rate 23 16 Blood Pressure 113/72 Pulse Oximetry 99 99 Oxygen Delivery Method 02/12/24 15:00 02/12/24 15:00 02/12/24 15:30 Temperature Pulse Rate 96 H Respiratory Rate Blood Pressure 145/83 H 124/72 Pulse Oximetry 99 Oxygen Delivery Method 02/12/24 15:30 02/12/24 16:00 02/12/24 16:00 Temperature Pulse Rate 91 H 92 H Respiratory Rate Blood Pressure 115/74 Pulse Oximetry 96 98 Oxygen Delivery Method MDM - Chest Pain Lab Data 02/12/24 13:21 02/12/24 13:21 Labs: Lab Results 02/12/24 02/12/24 Range/Units 13:21 15:15 WBC 6.6 (4.5-11.0) X10^3/uL RBC 4.96 (4.0-5.2) X10^6/uL Hgb 14.8 (12.0-16.0) g/dL Hct 43.8 (36-46) % MCV 88.4 (80-100) fL MCH 29.7 (26-34) PG MCHC 33.7 (30-36) % RDW 12.7 (11.6-14.8) % Plt Count 264 (150-400) X10^3/uL Neut % (Auto) 46.1 L (50-75) % Lymph % (Auto) 47.2 H (25-40) % Andrews % (Auto) 5.6 (3-14) % Eos % (Auto) 0.4 L (2-4) % Baso % (Auto) 0.7 (0-2) % Neut # (Auto) 3100 (7735-0275) /uL Lymph # (Auto) 3100 (8621-5962) /uL Andrews # (Auto) 400 (0-900) /uL Eos # (Auto) 0 (0-450) /uL Baso # (Auto) 0 (0-100) /uL PT 11.2 (9.4-12.5) SECONDS INR 1.0 (0.9-1.3) APTT 42 H (25.1-36.5) SECONDS D-Dimer 266 (<500) ng/ml Sodium 142 (137-145) mmol/L Potassium 3.5 (3.4-5.1) mmol/L Chloride 105 (98-107) mmol/L Carbon Dioxide 27 (22-32) mmol/L BUN 13 (7-17) mg/dL Creatinine 0.55 (0.52-1.04) mg/dL Estimated GFR > 60 (>60) mL/min BUN/Creatinine Ratio 23.6 H (6-22) Glucose 99 (70-100) mg/dL Calcium 9.0 (8.4-10.2) mg/dL Magnesium 2.2 (1.6-2.3) mg/dL Total Bilirubin 0.7 (0.2-1.3) mg/dL AST 26 (14-36) IU/L ALT 18 (<35) IU/L Alkaline Phosphatase 75 (38-126) U/L Total Creatine Kinase 63 (30-135) U/L Troponin I < 0.012 < 0.012 (0.01-0.034) ng/mL Total Protein 8.6 H (6.3-8.2) g/dL Albumin 4.8 (3.5-5.0) g/dL Globulin 3.8 (1.7-4.1) g/dL Albumin/Globulin Ratio 1.3 (1.0-2.8) Lipase 144 (23-300) U/L TSH 2.20 (0.47-4.68) uIU/mL Imaging Data Chest x-ray: Radiologist's Impression: PROCEDURE: XR CHEST 1V INDICATIONS: chest pain TECHNIQUE: One view of the chest was acquired. COMPARISON: None. FINDINGS: Surgical changes and devices: None. Lungs and pleura: Lungs are clear. No pleural effusions or pneumothorax. Mediastinum: Mediastinal contours appear normal. Heart size is normal. Bones and chest wall: No suspicious bony lesions. Overlying soft tissues appear unremarkable. IMPRESSION: No acute cardiopulmonary abnormality is seen. Dictated by: Sidney Downey M.D. on 02/12/2024 at 13:58 ECG Data Attestation: I personally reviewed and interpreted this ECG as follows: Interpretation: Normal sinus rhythm rate 98 WI 152 QRS 84 QTC 454 Q-wave noted in lead [address] changes MDM Narrative Medical decision making narrative: [facility] CC: Chest pain palpitations weakness Complicating co-morbidities: Fibromyalgia, recent TIA Medical records reviewed: Yes Differential considered: Cardiac arrhythmia, coronary artery disease, pulmonary embolism, allergic reaction, TIA CVA Exam documented above, pertinent findings include: Regular rate and rhythm no significant dyspnea mild urticaria noted on chest but no evidence of anaphylaxis, actually does have difficulty sitting up to listen to lungs in his slightly weak but her NIH stroke scale is 0 Lab Test results independently reviewed as above. Pertinent findings: WBC 6.6, hemoglobin 14.8, hematocrit 43.8, platelets 264, electrolytes are stable creatinine 0.5 glucose 99, bilirubin 0.7, AST 26 T 18 alk-phos 75 troponin negative x2 TSH is 2.2 lipase 144, D-dimer 266 Independently reviewed EKG as above normal sinus rhythm without ischemia or arrhythmia Imaging studies independently reviewed: Chest x-ray no acute cardiopulmonary process Consultations: [ ] Treatments: Solu-Medrol Re-evaluations: Patient feeling significantly better rash is gone Discussion: Patient presents today with increasing chest pain discomfort and weakness. She has had near syncopal episodes handful of times. She has already been evaluated by ANGELIQUE gomes but reports that she was not active during the 28 day she had it and now is more active. She did not actually pass out today. He has not had any sort of fevers. There is no evidence of infection she has no leukocytosis fever or pneumonia. Pulmonary embolism was considered however her D-dimer is 266 I think highly unlikely she has not hypoxic or tachycardic I do not see need for CT scan year score is negative. She has no known coronary artery disease. She was given a dose of Solu-Medrol for her rash and possible allergic like reaction and she is overall feeling significantly better. Rash is completely gone. She really is no evidence of any sort of anaphylactic reaction. Really complains of significant fatigue unclear what is causing this. But it does sound like she has some sort of histamine reaction she frequently gets rashes will put her on a short course small dose of prednisone to see if there is any sort of improvement. She is being worked up as outpatient encourage her to have repeat ZIO patch. At this time I see no need for any further workup. She has not having any neurologic deficits do not suspect TIA or CVA no need for head CT YEARS Algorithm for Pulmonary Embolism (PE) from [employer] on 02/13/2024 All calculations should be rechecked by clinician prior to use RESULT SUMMARY: PE excluded YEARS algorithm rules out PE (0.43% with symptomatic VTE during 3-month follow-up) INPUTS: patient ?> 0 = No Clinical signs of DVT ?> 0 = No Hemoptysis ?> 0 = No PE most likely diagnosis ?> 0 = No D-dimer >=,000 ng/mL ?> 0 = No Discharge Plan Departure Patient Disposition: Home Clinical Impression: Near syncope, Palpitations, Urticaria Instructions: DI for Syncope in Adults (Fainting), DI for Atypical Chest Pain Activity Restrictions/Additional Instructions: *You have been diagnosed with atypical chest pain palpitations *What to do: At this time you may need to repeat your ZIO patch that you are more active. You Did have a rash unclear of the significance. Blood work is overall reassuring *Continue to take medications as directed Prednisone 20 mg once a day for 5 days *Follow up with your primary care provider in 2-3 days or call [phone] *Return to ER if you should have increasing chest pain passing out shortness of breath tongue swelling lip swelling [or] any new, worsening or concerning symptom Prescriptions: New prednisone 20 mg tablet 20 mg PO DAILY Qty: 5 0RF No Action epinephrine 0.3 mg/0.3 mL syringe 0.3 ml SUBCUT ONCE Qty: 2 0RF Rx Instructions: as a single dose; may repeat once rizatriptan [Maxalt] 10 mg tablet See Rx Instructions PO .COMPLEX Qty: 30 0RF Rx Instructions: take 1 tab at onset of headache; if no relief may repeat 1 tab after at least 2 hrs; max = 3 tabs/24 hr PO thyroid (pork) [[place] Thyroid] 15 mg tablet 15 mg PO DAILY Qty: 90 3RF Rx Instructions: take with 30mg pill thyroid (pork) [[place] Thyroid] 30 mg tablet 30 mg PO DAILY Qty: 90 3RF Referrals: Abelardo Bustamante MD [Primary Care Provider] - Stand Alone Forms: Patient Portal/API
[2024-02-12] MEDS: methylPREDNISolone 125 MG/2 ML VIAL IV (14:57)
[2024-02-12 14:58] LABS: D Dimer 266 ng/ml (<500)
[2024-02-12 15:48] LABS: Troponin I < 0.012 ng/mL (0.01-0.034)
== END 2024-02-12 17:03 | disposition home or self-care (01) ==
PROVIDERS: Emergency Provider Emergency Medicine; Family Provider Family Medicine; PCP Family Medicine
DX: R55 Syncope and collapse (principal); R00.2 Palpitations; L50.9 Urticaria, unspecified
CPT/HCPCS: 36415; 71045; 80053; 82550; 83690; 83735; 84443; 84484; 85025; 85379; 85610; 85730; 93005; 96374; 99284; J2919

== ENCOUNTER 2024-02-24 11:12 | Emergency (ER) | payer OTHER, SELFPAY ==
[2023-11-06 02:07] VITALS: BMI 29.7
[2024-02-24] VITALS (13 sets, daily range): BP systolic 121–165; BP diastolic 80–94; PULSE 84–109; RESP 14–24; TEMP 37.1; O2SAT 96–100; BMI 30.8
--- NOTE | 2024-02-24 11:23 | DI.RAD.S_ITS ---
PROCEDURE: XR CHEST 1V INDICATIONS: chest pain TECHNIQUE: One view of the chest was acquired. COMPARISON: [facility], CR, XR CHEST 1V, 02/12/2024, 13:31. FINDINGS: Surgical changes and devices: None. Lungs and pleura: Lungs are clear. No pleural effusions or pneumothorax. Mediastinum: Mediastinal contours appear normal. Heart size is normal. Bones and chest wall: No suspicious bony lesions. Overlying soft tissues appear unremarkable. IMPRESSION: No acute cardiopulmonary abnormality is seen. Dictated by: Dejon Mtz M.D. on 02/24/2024 at 12:13 Approved by: Dejon Mtz M.D. on 02/24/2024 at 12:13
[2024-02-24 11:28] LABS: Add Manual Diff / Slide Review NO; Basophils Absolute Auto 0 /uL (0-100); Basophils Percent Auto 0.5 % (0-2); Eosinophils Absolute Auto 0 /uL (0-450); Eosinophils Percent Auto 0.6 % (2-4); Hematocrit 45.2 % (36-46); Lymphocytes Absolute Auto 3300 /uL (1100-4500); Lymphocytes Percent Auto 42.8 % (25-40); Mean Corpuscular HGB Conc 33.3 % (30-36); Mean Corpuscular Hemoglobin 29.6 PG (26-34); Monocytes Absolute Auto 400 /uL (0-900); Monocytes Percent Auto 4.8 % (3-14); Neutrophils Absolute Auto 4000 /uL (1500-7000); Neutrophils Percent Auto 51.3 % (50-75); Platelet Count 236 X10^3/uL (150-400); Red Blood Cell Count 5.08 X10^6/uL (4.0-5.2); Red Cell Distribution Width 13.2 % (11.6-14.8); White Blood Cell Count 7.7 X10^3/uL (4.5-11.0)
[2024-02-24 11:29] LABS: Prothrombin Time 11.7 SECONDS (9.4-12.5)
[2024-02-24 11:33] LABS: Alanine Aminotransferase 19 IU/L (<35); Albumin 4.8 g/dL (3.5-5.0); Albumin Globulin Ratio 1.4 (1.0-2.8); Alkaline Phosphatase 68 U/L (38-126); Aspartate Aminotransferase 23 IU/L (14-36); BUN Creatinine Ratio 21.2 (6-22); Bilirubin Total 0.6 mg/dL (0.2-1.3); Blood Urea Nitrogen 11 mg/dL (7-17); Calcium 9.2 mg/dL (8.4-10.2); Carbon Dioxide 29 mmol/L (22-32); Chloride 106 mmol/L (98-107); Estimated Glomerular Filt Rate > 60 mL/min (>60); Globulin 3.4 g/dL (1.7-4.1); Glucose 141 mg/dL (70-100); HEMOLYSIS 17 (0-50); Potassium 3.6 mmol/L (3.4-5.1); Sodium 142 mmol/L (137-145); Total Protein 8.2 g/dL (6.3-8.2)
[2024-02-24 11:45] LABS: Troponin I < 0.012 ng/mL (0.01-0.034)
--- NOTE | 2024-02-24 13:09 | ED_ITS ---
HPI - Weakness General Chief complaint: Weakness Stated complaint: weakness Time Seen by Provider: 02/24/24 12:40 History of Present Illness HPI Narrative: 53-year-old female has history of SVT in the past, has worn cardiac monitors for 2 weeks at a time twice in the last couple of months, does not recall specific medications for heart rate abnormality, had recent cardiac stress testing with Dr. Sapp of Cardiology at [facility] last week, awaiting follow up appointment for results. This morning she was lying on the couch proximally 10 30, had acute onset of chest discomfort, and fast heart rate sensation. She also felt neck pain, stiffness, unable to move her neck, with left lateral muscle spasm, does not recall specific injury. Denies pain to right arm or left arm. Related Data Previous Rx's Medication Instructions Recorded epinephrine 0.3 mg/0.3 mL 0.3 ml SUBCUT ONCE #2 ea 12/04/23 injection syringe rizatriptan 10 mg tablet (Maxalt) See Rx Instructions PO .COMPLEX 01/01/24 #30 tabs thyroid (pork) 15 mg tablet 15 mg PO DAILY #90 tabs 02/01/24 ([place] Thyroid) thyroid (pork) 30 mg tablet 30 mg PO DAILY #90 tabs 02/01/24 ([place] Thyroid) prednisone 20 mg tablet 20 mg PO DAILY #5 tabs 02/12/24 methocarbamol 500 mg tablet 500 mg PO TID rhomboid muscle 02/24/24 strain 7 days #21 tabs metoprolol succinate 25 mg capsule 25 mg PO DAILY #30 ea 02/24/24 sprinkle, ext. release 24 hr Allergies Allergy/AdvReac Type Severity Reaction Status Date / Time Penicillins [PENICILLINS] Allergy Intermediate Hives Verified 02/12/24 13:21 ibuprofen [IBUPROFEN] Allergy Unknown Verified 02/12/24 13:21 Bos[place]ellya AdvReac Intermediate Uncoded 01/01/24 10:07 Review of Systems Review of Systems Narrative: as per HPI Patient History Medical History (Updated 02/24/24 @ 16:37 by Chris Hatch MD) Esophageal dysmotility Vitamin D deficiency Chronic headaches Heart palpitations Chronic neck pain Chronic back pain Hearing decreased Mumps Measles Chicken pox Hypothyroidism Hyperlipidemia Surgical History Anesthesia History of tonsillectomy Family History Father No problems noted. Grandmother Stroke Grandfather History of heart disease Grandmother History of heart disease Cancer Social History household members: spouse and family Smoking Status: Never smoker alcohol intake: current Smoking Status: Never smoker alcohol intake frequency: other Substance Use Type: does not use Exam Narrative Exam Narrative: GENERAL: Well-developed patient, in mild distress. HEAD: Atraumatic. Normocephalic. EYES: Pupils equal round and reactive. Extraocular motions intact. No scleral icterus. No injection or drainage. ENT: Nose without bleeding, purulent drainage. Throat without erythema, tonsillar hypertrophy or exudate. Airway patent. NECK: Trachea midline. Has tenderness to left SCM, the feels better with some massage, appears to be in spasm on that side, little flexion extension movement of the neck, little movement [id number] due to left-sided lateral spasm CARDIOVASCULAR: Regular rate and rhythm without murmurs, gallops, or rubs. RESPIRATORY: Clear to auscultation. Breath sounds equal bilaterally. No wheezes, rales, or rhonchi. GASTROINTESTINAL: Abdomen soft, non-tender, nondistended. EXTREMITIES: No edema or joint tenderness. BACK: Nontender without deformity or crepitance. No flank tenderness. NEURO: AOx3. SKIN: No rash or erythema of visible areas Initial Vital Signs Initial Vital Signs: Vital Signs Temperature 98.7 F 02/24/24 11:14 Pulse Rate 109 H 02/24/24 11:14 Respiratory Rate 16 02/24/24 11:14 Blood Pressure 160/94 H 02/24/24 11:14 Pulse Oximetry 99 02/24/24 11:14 Oxygen Delivery Method Room Air 02/24/24 11:14 Course Orders Ordered: ED Orders 02/24/24 13:59 CT cervical spine wo con Stat 02/24/24 14:42 Trop I [Troponin I] Stat Discontinued Medications Diazepam (Diazepam 10 Mg/2 Ml Syringe) 2 mg IV NOW ONE Stop: 02/24/24 13:26 Last Admin: 02/24/24 13:39 Dose: 2 mg Documented By: MÓNICA Vital Signs Vital signs: Vital Signs - 8 hr 02/24/24 14:32 02/24/24 15:00 02/24/24 15:30 Pulse Rate 90 84 95 H Respiratory Rate 18 24 Blood Pressure Pulse Oximetry 97 100 98 02/24/24 16:00 02/24/24 16:22 02/24/24 16:22 Pulse Rate 91 H 85 Respiratory Rate 14 18 Blood Pressure 130/80 Pulse Oximetry 96 98 MDM - Weakness Lab Data Attestation: I reviewed the patient's lab results. 02/24/24 11:15 02/24/24 11:15 Labs: Lab Results 02/24/24 02/24/24 Range/Units 11:15 14:42 WBC 7.7 (4.5-11.0) X10^3/uL RBC 5.08 (4.0-5.2) X10^6/uL Hgb 15.0 (12.0-16.0) g/dL Hct 45.2 (36-46) % MCV 89.0 (80-100) fL MCH 29.6 (26-34) PG MCHC 33.3 (30-36) % RDW 13.2 (11.6-14.8) % Plt Count 236 (150-400) X10^3/uL Neut % (Auto) 51.3 (50-75) % Lymph % (Auto) 42.8 H (25-40) % [place] % (Auto) 4.8 (3-14) % Eos % (Auto) 0.6 L (2-4) % Baso % (Auto) 0.5 (0-2) % Neut # (Auto) 4000 (8227-0890) /uL Lymph # (Auto) 3300 (2336-6424) /uL [place] # (Auto) 400 (0-900) /uL Eos # (Auto) 0 (0-450) /uL Baso # (Auto) 0 (0-100) /uL PT 11.7 (9.4-12.5) SECONDS INR 1.0 (0.9-1.3) D-Dimer < 215 (<500) ng/ml Sodium 142 (137-145) mmol/L Potassium 3.6 (3.4-5.1) mmol/L Chloride 106 (98-107) mmol/L Carbon Dioxide 29 (22-32) mmol/L BUN 11 (7-17) mg/dL Creatinine 0.52 (0.52-1.04) mg/dL Estimated GFR > 60 (>60) mL/min BUN/Creatinine Ratio 21.2 (6-22) Glucose 141 H (70-100) mg/dL Calcium 9.2 (8.4-10.2) mg/dL Total Bilirubin 0.6 (0.2-1.3) mg/dL AST 23 (14-36) IU/L ALT 19 (<35) IU/L Alkaline Phosphatase 68 (38-126) U/L Troponin I < 0.012 < 0.012 (0.01-0.034) ng/mL Total Protein 8.2 (6.3-8.2) g/dL Albumin 4.8 (3.5-5.0) g/dL Globulin 3.4 (1.7-4.1) g/dL Albumin/Globulin Ratio 1.4 (1.0-2.8) Imaging Data CT - cervical spine: Radiologist Impression: [place] [address] CT Scan Report Signed Patient: Delfina Dalton MR#: [id number] : 1970 Acct:[id number] Age/Sex: 53 / F Date of Service: 02/24/24 Loc: ED Accession Number: [id number] Procedure: CT cervical spine wo con Ordering Provider: Chris Hatch MD PROCEDURE: CT CERVICAL SPINE WO CON INDICATIONS: left neck pain TECHNIQUE: Noncontrast 3 mm thick sections acquired from the skull base to the T4 level. Sagittal and coronal reformats were then constructed. For radiation dose reduction, the following was used: automated exposure control, adjustment of mA and/or kV according to patient size. COMPARISON: None. FINDINGS: Image quality: Excellent. Bones: No fractures or dislocations. Multilevel degenerative changes of the cervical spine. Straightening of the normal cervical lordosis with mild reversal. Visualized superior ribs are intact. Soft tissues: Prevertebral soft tissues are normal in thickness. No paravertebral hematomas. No apical pneumothoraces. IMPRESSION: No displaced fracture or traumatic subluxation. Multilevel degenerative changes of the cervical spine. Dictated by: Dejon Mtz M.D. on 02/24/2024 at 14:57 Approved by: Dejon Mtz M.D. on 02/24/2024 at 14:59 ECG Data Attestation: I personally reviewed and interpreted this ECG as follows: Interpretation: Sinus tachycardia with rate of 103, no obvious ST segment elevation or depression changes. T-wave inversions noted lead 3, flattening lead AVF. Upright in lead 2. MA 148, QRS 86, QTC 445. MDM Narrative Medical decision making narrative: 53-year-old female with left lateral neck spasm symptoms, history of SVT by her report, recent cardiac stress testing last week awaiting results, now with chest pain and fast heart rate sensation this morning, fast heart rate sensation has resolved, has persisting left lateral neck spasm like symptoms, worse with any movement, and has some decreased but present chest pain. Screening EKG with sinus tachycardia, ventricular rate 103, no obvious ischemic changes. Trial of Valium for muscle relaxation, she would like low dose, 2 mg prescribed. Chest x-ray negative, troponin negative. We will obtain records from cardiology Dr. Burroughs's stress test, unlikely contact Dr. Sapp once further results workup here available. Initial troponin negative, D-dimer negative, repeat troponin also negative. Await records from [facility]. We will contact Dr. Sapp office for follow up recommendations. Exercise treadmill test results 02/22/2024. Conclusions: ?equivocal exercise treadmill stress test due to exertional discomfort but no ischemia present. Normal heart rate and blood pressure response to exercise. No exercise-induced arrhythmias. Good exercise tolerance. ? Patient was able to exercise 10.3 Mets noted on findings. Case discussed with Dr. Piña on-call for Cardiology, was able to review records, December 2023 patient had Holter cardiac monitoring for 14 days, showed short runs of SVT. He recommends patient be discharged on metoprolol succinate 25 mg daily. And follow up with Dr. Burroughs for further consultation. Regarding neck pain, CT Csp negative, responded well to IV Valium 2mg dose, discharged home on Robaxin. Home with family, return precautions discussed Critical Care Time Critical Care Time Critical Care Time: Yes Total Critical Care Time: 31 Attestation: The high probability of a clinically significant, sudden or life threatening deterioration of the [cardiopulmonary, musculoskeletal] system(s) required my full and direct attention, intervention and personal management. The aggregate critical care time was [31] minutes. This time is in addition to time spent performing reported procedures but includes the following: [x] Data Review and interpretation [x] Patient assessment and monitoring of vital signs [X] Documentation [X] Medication orders and management Discharge Plan Departure Patient Disposition: Home Clinical Impression: Palpitations, Chest pain, History of supraventricular tachycardia, Neck muscle spasm Activity Restrictions/Additional Instructions: History of previous palpitations, Holter heart monitor worn December, showed short runs of SVT, not taking any metoprolol or diltiazem medication, today had episode of palpitation and heart racing symptoms, with chest pain. EKG and serial blood testing were not suggestive of a heart attack. D-dimer not elevated as might be expected with abnormal clotting such as blood clots to the lungs. Case was discussed with Cardiology Dr. Meri Weinberg on-call, who was able to review your Holter heart monitor, and was made aware of your recent stress test results. He would like you to start metoprolol succinate 25 mg tablets once daily, and then follow up with your keyseating machine set up operator Dr. Sapp. Also consider one aspirin daily. Follow up with Dr. Sapp as directed. You also had left-sided neck spasm that did not obviously seem related to your palpitations or chest discomfort, tenderness on left lateral neck muscles on examination, CT cervical spine imaging negative, you responded to IV Valium muscle relaxant, trial of oral Robaxin muscle relaxant. Return to this/nearest emergency department or any change worsening symptoms or any concerns prior Prescriptions: New metoprolol succinate 25 mg capsule,sprinkle,ER 24hr 25 mg PO DAILY Qty: 30 0RF methocarbamol 500 mg tablet 500 mg PO TID 7 Days Qty: 21 0RF No Action epinephrine 0.3 mg/0.3 mL syringe 0.3 ml SUBCUT ONCE Qty: 2 0RF Rx Instructions: as a single dose; may repeat once rizatriptan [Maxalt] 10 mg tablet See Rx Instructions PO .COMPLEX Qty: 30 0RF Rx Instructions: take 1 tab at onset of headache; if no relief may repeat 1 tab after at least 2 hrs; max = 3 tabs/24 hr PO thyroid (pork) [[place] Thyroid] 15 mg tablet 15 mg PO DAILY Qty: 90 3RF Rx Instructions: take with 30mg pill thyroid (pork) [[place] Thyroid] 30 mg tablet 30 mg PO DAILY Qty: 90 3RF prednisone 20 mg tablet 20 mg PO DAILY Qty: 5 0RF Referrals: Abelardo Bustamante MD [Primary Care Provider] - Stand Alone Forms: Patient Portal/API
[2024-02-24] MEDS: diazePAM 10 MG/2 ML SYRINGE 2 MG IV (13:39)
--- NOTE | 2024-02-24 13:59 | DI.CT.S_ITS ---
PROCEDURE: CT CERVICAL SPINE WO CON INDICATIONS: left neck pain TECHNIQUE: Noncontrast 3 mm thick sections acquired from the skull base to the T4 level. Sagittal and coronal reformats were then constructed. For radiation dose reduction, the following was used: automated exposure control, adjustment of mA and/or kV according to patient size. COMPARISON: None. FINDINGS: Image quality: Excellent. Bones: No fractures or dislocations. Multilevel degenerative changes of the cervical spine. Straightening of the normal cervical lordosis with mild reversal. Visualized superior ribs are intact. Soft tissues: Prevertebral soft tissues are normal in thickness. No paravertebral hematomas. No apical pneumothoraces. IMPRESSION: No displaced fracture or traumatic subluxation. Multilevel degenerative changes of the cervical spine. Dictated by: Dejon Mtz M.D. on 02/24/2024 at 14:57 Approved by: Dejon Mtz M.D. on 02/24/2024 at 14:59
[2024-02-24 15:11] LABS: Troponin I < 0.012 ng/mL (0.01-0.034)
[2024-02-24 15:14] LABS: D Dimer < 215 ng/ml (<500)
--- NOTE | 2024-02-24 16:37 | PC.NURSE ---
Generalized weakness; difficulty using upper and lower extremities. Purwick in place.
== END 2024-02-24 16:39 | disposition home or self-care (01) ==
PROVIDERS: Emergency Provider Emergency Medicine; Family Provider Family Medicine; PCP Family Medicine
DX: R00.2 Palpitations (principal); R07.9 Chest pain, unspecified; R53.1 Weakness; M62.838 Other muscle spasm; Z86.79 Personal history of other diseases of the circulatory system
CPT/HCPCS: 71045; 72125; 80053; 84484; 85025; 85379; 85610; 93005; 96374; 99284; J3360

== ENCOUNTER → 2024-02-29 08:44 | Outpatient (CLI) | payer OTHER, SELFPAY ==
[2023-11-06 02:07] VITALS: BMI 29.7
[2024-02-29 10:45] LABS: Alanine Aminotransferase 22 IU/L (<35); Albumin 4.4 g/dL (3.5-5.0); Albumin Globulin Ratio 1.5 (1.0-2.8); Alkaline Phosphatase 69 U/L (38-126); Aspartate Aminotransferase 25 IU/L (14-36); BUN Creatinine Ratio 20.3 (6-22); Bilirubin Total 0.6 mg/dL (0.2-1.3); Blood Urea Nitrogen 12 mg/dL (7-17); Calcium 8.8 mg/dL (8.4-10.2); Carbon Dioxide 28 mmol/L (22-32); Chloride 105 mmol/L (98-107); Estimated Glomerular Filt Rate > 60 mL/min (>60); Globulin 2.9 g/dL (1.7-4.1); Glucose 94 mg/dL (70-100); HEMOLYSIS < 15 (0-50); Potassium 4.3 mmol/L (3.4-5.1); Sodium 138 mmol/L (137-145); Total Protein 7.3 g/dL (6.3-8.2)
[2024-02-29 11:02] LABS: Free T3, Triiodothyronine Free 5.88 pg/mL (2.77-5.27); Free T4, Direct Thyroxine 1.03 ng/dL (0.78-2.19)
[2024-02-29 11:15] LABS: Thyroid Stimulating Hormone 1.83 uIU/mL (0.47-4.68)
[2024-03-02 14:09] LABS: Albumin 3.7 g/dL (2.9-4.4); Alpha-1-Globulin 0.2 g/dL (0.0-0.4); Alpha-2-Globulin 0.6 g/dL (0.4-1.0); Gamma Globulin 1.5 g/dL (0.4-1.8); Globulin Total 3.5 g/dL (2.2-3.9); Protein, Total 7.2 g/dL (6.0-8.5)
[2024-03-03 09:10] LABS: Alpha-1 Globulin, Ur 7.9 % (.); Beta Globulin, Ur 27.5 % (.); Gamma Globulin, Ur 14.1 % (.); M-Spike % Comment: % (Not Observed); Urine Total Protein 8.1 mg/dL (Not Estab.)
== END ==
LOC: LAB 08:45
PROVIDERS: Family Provider Family Medicine; PCP Family Medicine; Referring Provider Family Medicine; Visit Provider Family Medicine
DX: R00.2 Palpitations (principal); E03.9 Hypothyroidism, unspecified; E78.5 Hyperlipidemia, unspecified; M79.7 Fibromyalgia; R51.9 Headache, unspecified; G89.29 Other chronic pain; R77.9 Abnormality of plasma protein, unspecified
CPT/HCPCS: 36415; 80053; 84155; 84156; 84165; 84166; 84439; 84443; 84481

== ENCOUNTER → 2024-03-19 13:39 | Outpatient (CLI) | payer OTHER, SELFPAY ==
[2023-11-06 02:07] VITALS: BMI 29.7
--- NOTE | 2024-03-19 13:41 | DI.RAD.S_ITS ---
PROCEDURE: XR FINGER LT MIN 2V INDICATIONS: left index finger lac distal/lateral to nail-eval bone TECHNIQUE: AP hand, 2 views of the 2nd finger(s) acquired. COMPARISON: None. FINDINGS: Bones: No acute displaced fracture. Normal alignment. Age-indeterminate tiny bone fragment seen at the base of the distal phalanx. Soft tissues: Distal soft tissue injury. IMPRESSION: Age-indeterminate tiny bone fragment seen at the base of the distal phalanx. No acute displaced fracture. Distal soft tissue injury. If there is high concern for occult injury, consider repeat radiography or cross-sectional imaging. Dictated by: Miller Triana M.D. on 03/19/2024 at 14:34 Approved by: Milelr Triana M.D. on 03/19/2024 at 14:35
== END ==
LOC: RAD 13:40
PROVIDERS: Family Provider Family Medicine; PCP Family Medicine; Referring Provider Student in an Organized Health Care Education/Training Program; Visit Provider Student in an Organized Health Care Education/Training Program
DX: S61.211A Laceration without foreign body of left index finger without damage to nail, initial encounter (principal); X58.XXXA Exposure to other specified factors, initial encounter
CPT/HCPCS: 73140

== ENCOUNTER 2024-04-05 09:00 | Outpatient (RCR) | payer OTHER, SELFPAY ==
[2023-11-06 02:07] VITALS: BMI 29.7
--- NOTE | 2023-12-09 16:30 | PT.OIE ---
Current Diagnoses Cerebral infarction, unspecified (12/09/23) Fibromyalgia (12/09/23) Past Medical History (Last Reviewed 11/06/23 @ 07:19 by Darshan Ch MD) Chicken pox Chronic back pain Chronic headaches Chronic neck pain Hearing decreased Heart palpitations Hyperlipidemia Hypothyroidism Measles Mumps Vitamin D deficiency Past Surgical History (Last Reviewed 11/06/23 @ 07:19 by Darshan Ch MD) Anesthesia History of tonsillectomy Visit Care Team Role Provider Type Abelardo Bustamante MD Family Provider Physician Primary Care Provider Specialty: Family Practice Address: [address] [place] [address] Email: [email or web address] Christa Perez PA-C Attending Provider Advanced Wine Blender Referring Provider Specialty: Medical Address: [address] [place] [address], [address], [place], [facility] Email: [email or web address] Physical Therapy Initial Evaluation PT-OP-A Visit Information Start: 12/08/23 17:12 Freq: Status: Active Protocol: Document 12/09/23 08:09 SAK (Rec: 12/09/23 09:07 [facility] [id number]) Out-Patient Physical Therapy Visit Information Visit Information Visit Type Initial Evaluation Visit Start Time 08:21 Visit Stop Time 09:00 Visit Number 1 Evaluation Information Evaluation Date 12/09/23 Precautions Precautions history fibromyalgia, TIA PT-OP-B Current Condition Start: 12/08/23 17:12 Freq: Status: Active Protocol: Document 12/09/23 08:09 SAK (Rec: 12/09/23 09:07 [facility] [id number]) Current Condition History of Current Condition Onset Date 11/06/23 Current Complaints weakness and difficulty walking History of Current Condition Had episode of dizziness and inability to walk or talk. Also reports some difficulty with swallowing. More weakness left side. Had dizziness and inability to walk or talk while at basketball game, had to be helped down from the stands. Initially thought TIA and tachycardia. Prior episodes of brain fog and discoordination. Has ungnosed POTS. Histoery of fibromyalgia, seeing specialist 01/15/24. Sees neurologist 12/11/23, glassine machine tender 12/29/23. weatherization director at [facility] requests might be an option for exercise. Sees chiropractor. History plantar fascitis hypothyroidism and Russel's disorder. Inconsistently taking BP and HR at home due to chaos at home. Very limited activity level at this time. Constant MICHEL. Difficulty filling out paperwork due to brain fog. Dizziness today when looking down at papererwork or durng mobility. HIstory of ear tubes. Prior Treatments and Tests inpatient CT no acute intracranial abnormality Treatment Goals Patient/Caregiver Goals regain functional independence , PLF Prior Functional Status Baseline Function- ADL's Independent Baseline Function- Mobility Independent Baseline Function- Gait no limitations Baseline Function- Work/School no limitations Current Functional Impairments (Reported) Functional Limitations- ADL's slow, Functional Limitations- Mobility/Gait uses SPC Functional Limitations- Work/School unable to work Functional Limitations- Other uses seated scooter in house for laundry transport PT-OP-C Subjective Start: 12/08/23 17:12 Freq: Status: Active Protocol: Document 12/09/23 08:09 [facility] (Rec: 12/10/23 17:28 [facility] [id number]) OP-PT Pain Assessment Pain Assessment Grid Paper Pain Assessment Grid Completed Yes Location see pain chart Pain Location Details multiple body regions due to fibromyalgia Intensity 5 Description Aching,Chronic Frequency Frequent Pain Aggravating Factors Activity Pain Alleviating Factors Rest PT-OP-D Balance Start: 12/08/23 17:12 Freq: Status: Active Protocol: Document 12/09/23 08:09 [facility] (Rec: 12/10/23 17:28 [facility] [id number]) OP-PT Balance Assessment Sitting Balance Static Sitting Balance Ability Normal Dynamic Sitting Balance Ability Good Standing Balance Static Standing Balance Ability Fair Dynamic Standing Balance Ability Poor Device Used SPC Balance Tests Other Other Balance Tests Performed Unable to perform due to patient activity intolerance Finney Fall Scale Copyright Permission PT-OP-E Functional Tests Start: 12/08/23 17:12 Freq: Status: Active Protocol: Document 12/09/23 08:09 [facility] (Rec: 12/14/23 16:29 [facility] [id number]) Functional Tests 2 Minute Walk Test Comments unable to complete due to activity intolerance PT-OP-G Mobility & Gait Start: 12/08/23 17:12 Freq: Status: Active Protocol: Document 12/09/23 08:09 [facility] (Rec: 12/10/23 17:28 [facility] [id number]) OP Mobility Evaluation Bed Mobility Rolling not done due to dizziness, poor activity tolerance Transfers Sit to Stand able to perform without UE assist but with pressure of legs against chair Bed to Chair Transfers mod use of UE's OP Gait Assessment Gait Gait Assistance Required: Independent Assistive Devices Assistive Device Straight Cane Gait Deviations General Gait Pattern Decreased Stride Length, Decreased Feet Clearance Factors Limiting Gait Function Factors Limiting Gait Function Decreased Activity Tolerance, Decreased Strength, Incoordination Comments Gait Comments dizziness Stair Climbing Evaluation Comments Stair Climbing Comments unable to assess due to activity intolerance PT-OP-H Neuro Start: 12/08/23 17:12 Freq: Status: Active Protocol: Document 12/09/23 08:09 [facility] (Rec: 12/10/23 17:28 [facility] [id number]) Sensation Evaluation Gross Sensation Gross Sensation Left LE Impaired,Right LE Impaired Coordination Evaluation Upper Extremity Tests Right Alternate Nose to Finger Test Moderate Impairment Left Alternate Nose to Finger Test Moderate Impairment Lower Extremity Tests Right Foot Tapping Test Moderate Impairment Left Foot Tapping Test Moderate Impairment Vital Signs Pulse 1 Pulse Assessment Method Palpation PT-OP-Q Treatments Start: 12/08/23 17:12 Freq: Status: Active Protocol: Document 12/09/23 08:09 [facility] (Rec: 12/09/23 09:07 [facility] [id number]) Self-Care/Home Management Treatment Education Patient Education Home Exercise Program,Safety Other Education use cane on opposite side of weakest side (currently using on left; instructed to use on right) HEP: heel/toe raise, shallow squats education to do a few gentle exercise prior to standing up due to drop in BP with standing. PT-OP-T Assessment and Plan Start: 12/08/23 17:12 Freq: Status: Active Protocol: Document 12/09/23 08:09 [facility] (Rec: 12/09/23 09:07 [facility] [id number]) Physical Therapy Assessment Rehab Potential Rehabilitation Potential Good Evaluation Complexity Number of Personal Factors/Comorbidities 1-2 Number of Body Systems Impaired 3 Clinical Presentation at Evaluation Evolving Impairments Impairments Activity Tolerance,Balance, Gait,Strength Goals Four Impairment balance dysfunction with high risk for falls Care Home Goal (LTG) Improve functional balance as evidenced by Florence balance score in the low fall risk range (unable to complete test due to activity intolerance today) LTG Duration 03/10/24 Three Impairment activity intolerance Short Term Goal (STG) Patient will be able to ambulate for at least 5 min without need for a rest break STG Duration 01/20/24 Care Home Goal (LTG) Patient will be able to walk for at least 15 min without rest break to allow for short distance community mobility LTG Duration 03/10/24 Two Impairment gait dysfunction Impairment patient requires the use of a cane for gait Human Resource Management Instructor Goal (LTG) Patient able to ambulate on level surfaces and stairs without assistive device with no evidence for imbalance LTG Duration 03/10/24 One Impairment weakness Short Term Goal (STG) Patient to be instructed in HEP for strengthening cindy UE's and LE's STG Duration 01/20/24 Human Resource Management Instructor Goal (LTG) Patient to be independent and compliant with HEP and demonstrate improvement in strength to at least 4+/5 throughout LTG Duration 03/10/24 Assessment Summary Assessment Patient presents to PT with function-limiting deficits related to TIA 11/06/23 in which she was sitting in the stands at an athletic event and was suddenly unable to talk or walk. Has improved some but requires the use of a cane to walk, has decreased coordination and balance, and extremely poor activity tolerance, requiring a rest brake during walk to treatment room and wheelchair assistance to make it back to her car in parking lot. Complicating comorbidities are fibromyalgia, undiagnosed POTS per patient. BP 102/68 sitting, 92/48 standing. Today's session consisted of extensive history taking, limited physical exam due to activity intolerance, instruction in correct use of cane, and instruction in gentle therapeutic exercises as well as instruction to do a few arm exercises prior to standing due to her significant postural hypotension evidenced today. FEel she will benefit from physical therapy for gentle strengthening, balance, gait training, and coordination training to help her recover from her neurological event. We will need to monitor vital signs and carefully monitor for dizziness. POC was discussed and patient was in agreement. Physical Therapy Plan Frequency and Duration Frequency of Treatment 2x/Week Duration of treatment (weeks) 12 Plan of Care Start Date 12/09/23 Plan of Care End Date 03/10/24 Therapeutic Interventions Therapeutic Interventions Balance Training,Gait Training ,Home Exercise Program, Neuromuscular Re-education, Patient/Caregiver Education, Self-Care/Home Management, Taping,Therapeutic Activities, Therapeutic Exercises Modalities Cold Pack/Ice Massage,Electric Stimulation,Hot Packs Next Visit Focus/Plan Next Note Type Treatment Note Next Visit Plan Check BP and HR. REview HEP and correct use of cane. Gentle progression of ther ex as tolerated while monitoring vitals and watching for dizziness.
--- NOTE | 2023-12-09 16:31 | PT.OPPOC ---
Physical, Occupational & Speech Therapy At [facility] Current Diagnoses Cerebral infarction, unspecified (12/09/23) Fibromyalgia (12/09/23) Visit Care Team Role Provider Type Abelardo Bustamante MD Family Provider Physician Primary Care Provider Specialty: Family Practice Address: [address] [place] [address] Email: [email or web address] Christa Perez PA-C Attending Provider Advanced Jewelry Racker Referring Provider Specialty: Medical Address: [address] [place] [address], [address], [place], [address] Email: [email or web address] Plan Of Care PT-OP-T Assessment and Plan Start: 12/08/23 17:12 Freq: Status: Active Protocol: Document 12/09/23 08:09 JOSE (Rec: 12/09/23 09:07 [facility] [id number]) Physical Therapy Assessment Rehab Potential Rehabilitation Potential Good Evaluation Complexity Number of Personal Factors/Comorbidities 1-2 Number of Body Systems Impaired 3 Clinical Presentation at Evaluation Evolving Impairments Impairments Activity Tolerance,Balance, Gait,Strength Goals Four Impairment balance dysfunction with high risk for falls Intermediate Goal (LTG) Improve functional balance as evidenced by Florence balance score in the low fall risk range (unable to complete test due to activity intolerance today) LTG Duration 03/10/24 Three Impairment activity intolerance Short Term Goal (STG) Patient will be able to ambulate for at least 5 min without need for a rest break STG Duration 01/20/24 Intermediate Goal (LTG) Patient will be able to walk for at least 15 min without rest break to allow for short distance community mobility LTG Duration 03/10/24 Two Impairment gait dysfunction Impairment patient requires the use of a cane for gait Cloth Grader Goal (LTG) Patient able to ambulate on level surfaces and stairs without assistive device with no evidence for imbalance LTG Duration 03/10/24 One Impairment weakness Short Term Goal (STG) Patient to be instructed in HEP for strengthening cindy UE's and LE's STG Duration 01/20/24 Intermediate Goal (LTG) Patient to be independent and compliant with HEP and demonstrate improvement in strength to at least 4+/5 throughout LTG Duration 03/10/24 Assessment Summary Assessment Patient presents to PT with function-limiting deficits related to TIA 11/06/23 in which she was sitting in the stands at an athletic event and was suddenly unable to talk or walk. Has improved some but requires the use of a cane to walk, has decreased coordination and balance, and extremely poor activity tolerance, requiring a rest brake during walk to treatment room and wheelchair assistance to make it back to her car in parking lot. Complicating comorbidities are fibromyalgia, undiagnosed POTS per patient. BP 102/68 sitting, 92/48 standing. Today's session consisted of extensive history taking, limited physical exam due to activity intolerance, instruction in correct use of cane, and instruction in gentle therapeutic exercises as well as instruction to do a few arm exercises prior to standing due to her significant postural hypotension evidenced today. FEel she will benefit from physical therapy for gentle strengthening, balance, gait training, and coordination training to help her recover from her neurological event. We will need to monitor vital signs and carefully monitor for dizziness. POC was discussed and patient was in agreement. Physical Therapy Plan Frequency and Duration Frequency of Treatment 2x/Week Duration of treatment (weeks) 12 Plan of Care Start Date 12/09/23 Plan of Care End Date 03/10/24 Therapeutic Interventions Therapeutic Interventions Balance Training,Gait Training ,Home Exercise Program, Neuromuscular Re-education, Patient/Caregiver Education, Self-Care/Home Management, Taping,Therapeutic Activities, Therapeutic Exercises Modalities Cold Pack/Ice Massage,Electric Stimulation,Hot Packs Next Visit Focus/Plan Next Note Type Treatment Note Next Visit Plan Check BP and HR. REview HEP and correct use of cane. Gentle progression of ther ex as tolerated while monitoring vitals and watching for dizziness. Plan of Care Dates Plan of Care Start Date 12/09/23 Plan of Care End Date 03/10/24 Electronically Signed by: Ofelia Torres PT 12/14/23 4144 If you are in agreement with this Plan of Care, please return a signed and dated copy. I have reviewed this Plan of Care and certify that the skilled therapy services above are required to meet the patient?s needs. Physician Signature Date Printed Name and Credentials Clinical Instructor Signature Printed Name and Credentials
--- NOTE | 2023-12-16 12:06 | PT.OTN ---
Current Diagnoses Cerebral infarction, unspecified (12/16/23) Fibromyalgia (12/16/23) Physical Therapy Treatment Note PT-OP-A Visit Information Start: 12/08/23 17:12 Freq: Status: Active Protocol: Document 12/16/23 09:03 [facility] (Rec: 12/16/23 09:46 [facility] [id number]) Out-Patient Physical Therapy Visit Information Visit Information Visit Type Treatment Note Visit Note BP 108/78 sitting 125/85 standing 116/81 after walking Visit Start Time 09:03 Visit Stop Time 09:43 Visit Number 2 Evaluation Information Evaluation Date 12/09/23 PT-OP-B Current Condition Start: 12/08/23 17:12 Freq: Status: Active Protocol: Document 12/16/23 09:03 SAK (Rec: 12/16/23 09:46 [facility] [id number]) Current Condition History of Current Condition Onset Date 11/06/23 Current Complaints weakness and difficulty walking History of Current Condition Had episode of dizziness and inability to walk or talk. Also reports some difficulty with swallowing. More weakness left side. Had dizziness and inability to walk or talk while at basketball game, had to be helped down from the stands. Initially thought TIA and tachycardia. Prior episodes of brain fog and discoordination. Has ungnosed POTS. Histoery of fibromyalgia, seeing specialist 01/15/24. 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 Sees chiropractor. History plantar fascitis hypothyroidism and Russel's disorder. Inconsistently taking BP and HR at home due to chaos at home. Very limited activity level at this time. Constant MICHEL. Difficulty filling out paperwork due to brain fog. Dizziness today when looking down at papererwork or durng mobility. HIstory of ear tubes. Prior Treatments and Tests inpatient CT no acute intracranial abnormality PT-OP-C Subjective Start: 12/08/23 17:12 Freq: Status: Active Protocol: Document 12/16/23 09:03 SAK (Rec: 12/16/23 09:46 [facility] [id number]) OP-PT Subjective Patient Comments Patient Comments Saw neurologist, wearing heart monitor for 1 month. Baby aspirin recommended but pt. wants to talke with Dr. Cartwright first. Patient reports her system is very reactive. Fatigue level still very high, has to conserve energy and plan activities. Got dizzy and fell into nightstand and hit herself with her trekking pole (previously in day took stairs at [employer] and got overfatigued). PT-OP-D Balance Start: 12/08/23 17:12 Freq: Status: Active Protocol: Document 12/09/23 08:09 [facility] (Rec: 12/10/23 17:28 [facility] [id number]) OP-PT Balance Assessment Sitting Balance Static Sitting Balance Ability Normal Dynamic Sitting Balance Ability Good Standing Balance Static Standing Balance Ability Fair Dynamic Standing Balance Ability Poor Device Used SPC Balance Tests Other Other Balance Tests Performed Unable to perform due to patient activity intolerance Finney Fall Scale Copyright Permission PT-OP-E Functional Tests Start: 12/08/23 17:12 Freq: Status: Active Protocol: Document 12/09/23 08:09 [facility] (Rec: 12/14/23 16:29 [facility] [id number]) Functional Tests 2 Minute Walk Test Comments unable to complete due to activity intolerance PT-OP-G Mobility & Gait Start: 12/08/23 17:12 Freq: Status: Active Protocol: Document 12/09/23 08:09 [facility] (Rec: 12/10/23 17:28 [facility] [id number]) OP Mobility Evaluation Bed Mobility Rolling not done due to dizziness, poor activity tolerance Transfers Sit to Stand able to perform without UE assist but with pressure of legs against chair Bed to Chair Transfers mod use of UE's OP Gait Assessment Gait Gait Assistance Required: Independent Assistive Devices Assistive Device Straight Cane Gait Deviations General Gait Pattern Decreased Stride Length, Decreased Feet Clearance Factors Limiting Gait Function Factors Limiting Gait Function Decreased Activity Tolerance, Decreased Strength, Incoordination Comments Gait Comments dizziness Stair Climbing Evaluation Comments Stair Climbing Comments unable to assess due to activity intolerance PT-OP-H Neuro Start: 12/08/23 17:12 Freq: Status: Active Protocol: Document 12/09/23 08:09 [facility] (Rec: 12/10/23 17:28 [facility] [id number]) Sensation Evaluation Gross Sensation Gross Sensation Left LE Impaired,Right LE Impaired Coordination Evaluation Upper Extremity Tests Right Alternate Nose to Finger Test Moderate Impairment Left Alternate Nose to Finger Test Moderate Impairment Lower Extremity Tests Right Foot Tapping Test Moderate Impairment Left Foot Tapping Test Moderate Impairment Vital Signs Pulse 1 Pulse Assessment Method Palpation PT-OP-Q Treatments Start: 12/08/23 17:12 Freq: Status: Active Protocol: Document 12/16/23 09:03 [facility] (Rec: 12/16/23 09:46 [facility] [id number]) Therapeutic Exercises Standing Exercises squats Reps/Minutes 10x heel raise Reps/Minutes 10x Gait Training Gait Activity level Device Used no device Level of Assistance CGA Surface tile, carpet Treatment Focus balance, safety Comments stop/starts Neuro Re-Education Treatment Balance Activities EC Details wide BAR Surface parallel bars SLS Equipment parallel bars tandem stand Details EO, with small head turns Equipment parallel bars Self-Care/Home Management Treatment Education Other Education issued written HO PT-OP-T Assessment and Plan Start: 12/08/23 17:12 Freq: Status: Active Protocol: Document 12/16/23 09:03 [facility] (Rec: 12/16/23 09:46 [facility] [id number]) Physical Therapy Assessment Goals Four Impairment balance dysfunction with high risk for falls Tax Investigator Goal (LTG) Improve functional balance as evidenced by Florence balance score in the low fall risk range (unable to complete test due to activity intolerance today) LTG Duration 03/10/24 Three Impairment activity intolerance Short Term Goal (STG) Patient will be able to ambulate for at least 5 min without need for a rest break STG Duration 01/20/24 [facility] Goal (LTG) Patient will be able to walk for at least 15 min without rest break to allow for short distance community mobility LTG Duration 03/10/24 Two Impairment gait dysfunction Impairment patient requires the use of a cane for gait Fci Goal (LTG) Patient able to ambulate on level surfaces and stairs without assistive device with no evidence for imbalance LTG Duration 03/10/24 One Impairment weakness Short Term Goal (STG) Patient to be instructed in HEP for strengthening cindy UE's and LE's STG Duration 01/20/24 Tax Investigator Goal (LTG) Patient to be independent and compliant with HEP and demonstrate improvement in strength to at least 4+/5 throughout LTG Duration 03/10/24 Assessment Summary Assessment Patient BP more stable, dec incidences of dizziness, able to initiate balance exercises in parallel bars with small head turns. Frequent rest breaks. Issued HO for HEP Physical Therapy Plan Next Visit Focus/Plan Next Note Type Treatment Note Next Visit Plan Continue gait and balance training, strengthening while monitoring vitals and signs and symptoms of POTS.
--- NOTE | 2023-12-18 16:13 | PT.OTN ---
Current Diagnoses Cerebral infarction, unspecified (12/18/23) Fibromyalgia (12/18/23) Physical Therapy Treatment Note PT-OP-A Visit Information Start: 12/08/23 17:12 Freq: Status: Active Protocol: Document 12/18/23 13:33 [facility] (Rec: 12/18/23 16:13 AB [id number]) Out-Patient Physical Therapy Visit Information Visit Information Visit Type Treatment Note Visit Note ccess Code: [email or web address] Visit Start Time 15:17 Visit Stop Time 16:02 Visit Number 3 Number of DRIER Visits 1 Evaluation Information Evaluation Date 12/09/23 Precautions Precautions history fibromyalgia, TIA PT-OP-B Current Condition Start: 12/08/23 17:12 Freq: Status: Active Protocol: Document 12/16/23 09:03 SAK (Rec: 12/16/23 09:46 [facility] [id number]) Current Condition History of Current Condition Onset Date 11/06/23 Current Complaints weakness and difficulty walking History of Current Condition Had episode of dizziness and inability to walk or talk. Also reports some difficulty with swallowing. More weakness left side. Had dizziness and inability to walk or talk while at basketball game, had to be helped down from the stands. Initially thought TIA and tachycardia. Prior episodes of brain fog and discoordination. Has ungnosed POTS. Histoery of fibromyalgia, seeing specialist 01/15/24. 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 Sees chiropractor. History plantar fascitis hypothyroidism and Russel's disorder. Inconsistently taking BP and HR at home due to chaos at home. Very limited activity level at this time. Constant MICHEL. Difficulty filling out paperwork due to brain fog. Dizziness today when looking down at papererwork or durng mobility. HIstory of ear tubes. Prior Treatments and Tests inpatient CT no acute intracranial abnormality PT-OP-C Subjective Start: 12/08/23 17:12 Freq: Status: Active Protocol: Document 12/18/23 13:33 AB (Rec: 12/18/23 16:13 AB [id number]) OP-PT Subjective Patient Comments Patient Comments BP 120/85 HR 98 left UE seated SLS 15 right 11 sec left without UE use CGA. Delfina reports she was tired post previous session. PT-OP-D Balance Start: 12/08/23 17:12 Freq: Status: Active Protocol: Document 12/09/23 08:09 [facility]AK (Rec: 12/10/23 17:28 [facility] [id number]) OP-PT Balance Assessment Sitting Balance Static Sitting Balance Ability Normal Dynamic Sitting Balance Ability Good Standing Balance Static Standing Balance Ability Fair Dynamic Standing Balance Ability Poor Device Used SPC Balance Tests Other Other Balance Tests Performed Unable to perform due to patient activity intolerance Finney Fall Scale Copyright Permission PT-OP-E Functional Tests Start: 12/08/23 17:12 Freq: Status: Active Protocol: Document 12/09/23 08:09 [facility]AK (Rec: 12/14/23 16:29 [facility] [id number]) Functional Tests 2 Minute Walk Test Comments unable to complete due to activity intolerance PT-OP-G Mobility & Gait Start: 12/08/23 17:12 Freq: Status: Active Protocol: Document 12/09/23 08:09 [facility]AK (Rec: 12/10/23 17:28 [facility] [id number]) OP Mobility Evaluation Bed Mobility Rolling not done due to dizziness, poor activity tolerance Transfers Sit to Stand able to perform without UE assist but with pressure of legs against chair Bed to Chair Transfers mod use of UE's OP Gait Assessment Gait Gait Assistance Required: Independent Assistive Devices Assistive Device Straight Cane Gait Deviations General Gait Pattern Decreased Stride Length, Decreased Feet Clearance Factors Limiting Gait Function Factors Limiting Gait Function Decreased Activity Tolerance, Decreased Strength, Incoordination Comments Gait Comments dizziness Stair Climbing Evaluation Comments Stair Climbing Comments unable to assess due to activity intolerance PT-OP-H Neuro Start: 12/08/23 17:12 Freq: Status: Active Protocol: Document 12/09/23 08:09 [facility] (Rec: 12/10/23 17:28 [facility] [id number]) Sensation Evaluation Gross Sensation Gross Sensation Left LE Impaired,Right LE Impaired Coordination Evaluation Upper Extremity Tests Right Alternate Nose to Finger Test Moderate Impairment Left Alternate Nose to Finger Test Moderate Impairment Lower Extremity Tests Right Foot Tapping Test Moderate Impairment Left Foot Tapping Test Moderate Impairment Vital Signs Pulse 1 Pulse Assessment Method Palpation PT-OP-Q Treatments Start: 12/08/23 17:12 Freq: Status: Active Protocol: Document 12/18/23 13:33 AB (Rec: 12/18/23 16:13 AB [id number]) Therapeutic Exercises Supine Exercises modified restorative pose with breathing from diaphragm Supine Exercise Name LE's elevated 90/90 verbal cues for breathing from diaphragm Reps/Minutes 4 minutes X 2 start of session and post seated hip abd due to c/o dizzy Comments Verbal cues for breathing, Patient ed to perform 5-10 minutes when fatigued Sitting Exercises Seated breathing from diaphragm Sitting Exercise Name UE's resting on pillows, Patient ed positioning for breathlessness Reps/Minutes 4 min Comments verbal cues for breathing from diaphragm seated hip abd with band Sitting Exercise Name *felt numb and tingly, noted to lean left, positioned supine with LE's Reps/Minutes X10 BP 129/88 HR 100 ( supine with LE's elevated post ex) Comments 13 some what hard Nolvia scale ( scale to 20) reports feel SOB reports lips* Therapeutic Activity Therapeutic Activity supine to sit Reps/Minutes X2 Comments Verbal cues to roll fully onto side, rest for a moment then push up into sitting immediately after pushing LE's off mat to gain the advantage of momentum of the LE's moving off the mat. sit to stand Name without UE use Reps/Minutes X5 Comments patient ed use of self tactile cues and verbal cues to avoid holding breath PT-OP-T Assessment and Plan Start: 12/08/23 17:12 Freq: Status: Active Protocol: Document 12/18/23 13:33 AB (Rec: 12/18/23 16:13 AB [id number]) Physical Therapy Assessment Goals Four Impairment balance dysfunction with high risk for falls Assisted Goal (LTG) Improve functional balance as evidenced by Florence balance score in the low fall risk range (unable to complete test due to activity intolerance today) LTG Duration 03/10/24 Three Impairment activity intolerance Short Term Goal (STG) Patient will be able to ambulate for at least 5 min without need for a rest break STG Duration 01/20/24 Systems Developer Goal (LTG) Patient will be able to walk for at least 15 min without rest break to allow for short distance community mobility LTG Duration 03/10/24 Two Impairment gait dysfunction Impairment patient requires the use of a cane for gait Systems Developer Goal (LTG) Patient able to ambulate on level surfaces and stairs without assistive device with no evidence for imbalance LTG Duration 03/10/24 One Impairment weakness Short Term Goal (STG) Patient to be instructed in HEP for strengthening cindy UE's and LE's STG Duration 01/20/24 Systems Developer Goal (LTG) Patient to be independent and compliant with HEP and demonstrate improvement in strength to at least 4+/5 throughout LTG Duration 03/10/24 Assessment Summary Assessment Patient with BP WNL limits, but reporting increased symptoms of dizziness, feeling lips go numb, and reporting feeling she needed to lie down , and began leaning to the right while seated on the mat. Recovered with rests/ seated with UE's elevated, modified restorative pose with breathing from diaphragm. Physical Therapy Plan Frequency and Duration Frequency of Treatment 2x/Week Duration of treatment (weeks) 12 Plan of Care Start Date 12/09/23 Plan of Care End Date 03/10/24 Next Visit Focus/Plan Next Note Type Treatment Note Next Visit Plan Continue gait and balance training, strengthening while monitoring vitals and signs and symptoms of POTS.
--- NOTE | 2023-12-24 16:23 | PT.OTN ---
Current Diagnoses Cerebral infarction, unspecified (12/24/23) Fibromyalgia (12/24/23) Physical Therapy Treatment Note PT-OP-A Visit Information Start: 12/08/23 17:12 Freq: Status: Active Protocol: Document 12/24/23 11:17 SAK (Rec: 12/24/23 13:01 [facility] [id number]) Out-Patient Physical Therapy Visit Information Visit Information Visit Type Treatment Note Visit Start Time 11:18 Visit Stop Time 12:00 Visit Number 4 Number of WELDER APPRENTICE Visits 0 Evaluation Information Evaluation Date 12/09/23 Precautions Precautions history fibromyalgia, TIA PT-OP-B Current Condition Start: 12/08/23 17:12 Freq: Status: Active Protocol: Document 12/24/23 11:17 SAK (Rec: 12/24/23 13:01 [facility] [id number]) Current Condition History of Current Condition Onset Date 11/06/23 Current Complaints weakness and difficulty walking History of Current Condition Had episode of dizziness and inability to walk or talk. Also reports some difficulty with swallowing. More weakness left side. Had dizziness and inability to walk or talk while at basketball game, had to be helped down from the stands. Initially thought TIA and tachycardia. Prior episodes of brain fog and discoordination. Has ungnosed POTS. Histoery of fibromyalgia, seeing specialist 01/15/24. 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 community director at [facility] requests might be an option for exercise. Sees chiropractor. History plantar fascitis hypothyroidism and Russel's disorder. Inconsistently taking BP and HR at home due to chaos at home. Very limited activity level at this time. Constant MICHEL. Difficulty filling out paperwork due to brain fog. Dizziness today when looking down at papererwork or durng mobility. HIstory of ear tubes. Prior Treatments and Tests inpatient CT no acute intracranial abnormality PT-OP-C Subjective Start: 12/08/23 17:12 Freq: Status: Active Protocol: Document 12/24/23 11:17 SAK (Rec: 12/24/23 13:01 [facility] [id number]) OP-PT Subjective Patient Comments Patient Comments BP 108/74, HR 96 bpm left UE Dizziness a little better, has pushed button on heart monitor several times as instructed based on symptoms. Has started water walking program, was able to walk up stairs very slowly, trying to gentle strengthen and increase activity gradually. PT-OP-D Balance Start: 12/08/23 17:12 Freq: Status: Active Protocol: Document 12/09/23 08:09 [facility] (Rec: 12/10/23 17:28 [facility] [id number]) OP-PT Balance Assessment Sitting Balance Static Sitting Balance Ability Normal Dynamic Sitting Balance Ability Good Standing Balance Static Standing Balance Ability Fair Dynamic Standing Balance Ability Poor Device Used SPC Balance Tests Other Other Balance Tests Performed Unable to perform due to patient activity intolerance Finney Fall Scale Copyright Permission PT-OP-E Functional Tests Start: 12/08/23 17:12 Freq: Status: Active Protocol: Document 12/09/23 08:09 [facility] (Rec: 12/14/23 16:29 [facility] [id number]) Functional Tests 2 Minute Walk Test Comments unable to complete due to activity intolerance PT-OP-G Mobility & Gait Start: 12/08/23 17:12 Freq: Status: Active Protocol: Document 12/09/23 08:09 [facility] (Rec: 12/10/23 17:28 [facility] [id number]) OP Mobility Evaluation Bed Mobility Rolling not done due to dizziness, poor activity tolerance Transfers Sit to Stand able to perform without UE assist but with pressure of legs against chair Bed to Chair Transfers mod use of UE's OP Gait Assessment Gait Gait Assistance Required: Independent Assistive Devices Assistive Device Straight Cane Gait Deviations General Gait Pattern Decreased Stride Length, Decreased Feet Clearance Factors Limiting Gait Function Factors Limiting Gait Function Decreased Activity Tolerance, Decreased Strength, Incoordination Comments Gait Comments dizziness Stair Climbing Evaluation Comments Stair Climbing Comments unable to assess due to activity intolerance PT-OP-H Neuro Start: 12/08/23 17:12 Freq: Status: Active Protocol: Document 12/09/23 08:09 [facility] (Rec: 12/10/23 17:28 [facility] [id number]) Sensation Evaluation Gross Sensation Gross Sensation Left LE Impaired,Right LE Impaired Coordination Evaluation Upper Extremity Tests Right Alternate Nose to Finger Test Moderate Impairment Left Alternate Nose to Finger Test Moderate Impairment Lower Extremity Tests Right Foot Tapping Test Moderate Impairment Left Foot Tapping Test Moderate Impairment Vital Signs Pulse 1 Pulse Assessment Method Palpation PT-OP-Q Treatments Start: 12/08/23 17:12 Freq: Status: Active Protocol: Document 12/24/23 11:17 [facility] (Rec: 12/24/23 13:01 [facility] [id number]) Cardio Equipment Recumbent Bicycle Duration (Minutes) 5 Resistance 2 Seat Position 5 Therapeutic Exercises Sitting Exercises Seated breathing from diaphragm Sitting Exercise Name UE's resting on pillows, Patient ed positioning for breathlessness Reps/Minutes 4 min Comments verbal cues for breathing from diaphragm Standing Exercises march Reps/Minutes 5x squats Reps/Minutes 10x Comments cues for hip hinge, breathe out as stands heel raise Reps/Minutes 10x Therapeutic Activity Therapeutic Activity supine to sit Name reviewed sit to stand Name reviewed Comments exhale with move to stand Neuro Re-Education Treatment Balance Activities EC Details wide BAR Surface parallel bars SLS Equipment parallel bars Reps/Duration 3x10 each leg tandem stand Details EO, with small head turns Equipment parallel bars PT-OP-T Assessment and Plan Start: 12/08/23 17:12 Freq: Status: Active Protocol: Document 12/24/23 11:17 [facility] (Rec: 12/24/23 13:01 [facility] [id number]) Physical Therapy Assessment Goals Four Impairment balance dysfunction with high risk for falls Fdc Goal (LTG) Improve functional balance as evidenced by Florence balance score in the low fall risk range (unable to complete test due to activity intolerance today) LTG Duration 03/10/24 Three Impairment activity intolerance Short Term Goal (STG) Patient will be able to ambulate for at least 5 min without need for a rest break STG Duration 01/20/24 Welder Production Line Combination Goal (LTG) Patient will be able to walk for at least 15 min without rest break to allow for short distance community mobility LTG Duration 03/10/24 Two Impairment gait dysfunction Impairment patient requires the use of a cane for gait Fdc Goal (LTG) Patient able to ambulate on level surfaces and stairs without assistive device with no evidence for imbalance LTG Duration 03/10/24 One Impairment weakness Short Term Goal (STG) Patient to be instructed in HEP for strengthening cindy UE's and LE's STG Duration 01/20/24 Welder Production Line Combination Goal (LTG) Patient to be independent and compliant with HEP and demonstrate improvement in strength to at least 4+/5 throughout LTG Duration 03/10/24 Progress Towards Goals Progress Towards Goals Progressing Toward Goals Assessment Summary Assessment BP 104/74, HR 85 after ex, then 118/80 after further exercise. Reported minimal dizziness, instructed in pacing and given frequent rest breaks today with good tolerance for exercises alternating with seated rest. Physical Therapy Plan Frequency and Duration Frequency of Treatment 2x/Week Duration of treatment (weeks) 12 Plan of Care Start Date 12/09/23 Plan of Care End Date 03/10/24 Next Visit Focus/Plan Next Note Type Treatment Note Next Visit Plan Continue gait and balance training, strengthening while monitoring vitals and signs and symptoms of POTS.
--- NOTE | 2023-12-28 17:14 | PT.OTN ---
Current Diagnoses Cerebral infarction, unspecified (12/28/23) Fibromyalgia (12/28/23) Physical Therapy Treatment Note PT-OP-A Visit Information Start: 12/08/23 17:12 Freq: Status: Active Protocol: Document 12/28/23 12:57 AB (Rec: 12/28/23 13:47 AB [id number]) Out-Patient Physical Therapy Visit Information Visit Information Visit Type Treatment Note Visit Note ccess Code: LV Visit Start Time 13:02 Visit Stop Time 13:47 Visit Number 5 Number of BUSINESS SERVICES DIRECTOR Visits 1 Evaluation Information Evaluation Date 12/09/23 Precautions Precautions history fibromyalgia, TIA PT-OP-B Current Condition Start: 12/08/23 17:12 Freq: Status: Active Protocol: Document 12/24/23 11:17 SAK (Rec: 12/24/23 13:01 SAK [id number]) Current Condition History of Current Condition Onset Date 11/06/23 Current Complaints weakness and difficulty walking History of Current Condition Had episode of dizziness and inability to walk or talk. Also reports some difficulty with swallowing. More weakness left side. Had dizziness and inability to walk or talk while at basketball game, had to be helped down from the stands. Initially thought TIA and tachycardia. Prior episodes of brain fog and discoordination. Has ungnosed POTS. Histoery of fibromyalgia, seeing specialist 01/15/24. 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 Sees chiropractor. History plantar fascitis hypothyroidism and Russel's disorder. Inconsistently taking BP and HR at home due to chaos at home. Very limited activity level at this time. Constant MICHEL. Difficulty filling out paperwork due to brain fog. Dizziness today when looking down at papererwork or durng mobility. HIstory of ear tubes. Prior Treatments and Tests inpatient CT no acute intracranial abnormality PT-OP-C Subjective Start: 12/08/23 17:12 Freq: Status: Active Protocol: Document 12/28/23 12:57 AB (Rec: 12/28/23 13:47 AB [id number]) OP-PT Subjective Patient Comments Patient Comments Delfina into session without device, reports she has to sacrifice daily activities to be able to perform activities/ exercise in physical therapy. BP seated left UE start of session 105/75 HR 84 BPM, infracostal angle 104 deg. PT-OP-D Balance Start: 12/08/23 17:12 Freq: Status: Active Protocol: Document 12/09/23 08:09 [facility] (Rec: 12/10/23 17:28 [facility] [id number]) OP-PT Balance Assessment Sitting Balance Static Sitting Balance Ability Normal Dynamic Sitting Balance Ability Good Standing Balance Static Standing Balance Ability Fair Dynamic Standing Balance Ability Poor Device Used SPC Balance Tests Other Other Balance Tests Performed Unable to perform due to patient activity intolerance Finney Fall Scale Copyright Permission PT-OP-E Functional Tests Start: 12/08/23 17:12 Freq: Status: Active Protocol: Document 12/09/23 08:09 [facility] (Rec: 12/14/23 16:29 [facility] [id number]) Functional Tests 2 Minute Walk Test Comments unable to complete due to activity intolerance PT-OP-G Mobility & Gait Start: 12/08/23 17:12 Freq: Status: Active Protocol: Document 12/09/23 08:09 [facility] (Rec: 12/10/23 17:28 [facility] [id number]) OP Mobility Evaluation Bed Mobility Rolling not done due to dizziness, poor activity tolerance Transfers Sit to Stand able to perform without UE assist but with pressure of legs against chair Bed to Chair Transfers mod use of UE's OP Gait Assessment Gait Gait Assistance Required: Independent Assistive Devices Assistive Device Straight Cane Gait Deviations General Gait Pattern Decreased Stride Length, Decreased Feet Clearance Factors Limiting Gait Function Factors Limiting Gait Function Decreased Activity Tolerance, Decreased Strength, Incoordination Comments Gait Comments dizziness Stair Climbing Evaluation Comments Stair Climbing Comments unable to assess due to activity intolerance PT-OP-H Neuro Start: 12/08/23 17:12 Freq: Status: Active Protocol: Document 12/09/23 08:09 [facility] (Rec: 12/10/23 17:28 [facility] [id number]) Sensation Evaluation Gross Sensation Gross Sensation Left LE Impaired,Right LE Impaired Coordination Evaluation Upper Extremity Tests Right Alternate Nose to Finger Test Moderate Impairment Left Alternate Nose to Finger Test Moderate Impairment Lower Extremity Tests Right Foot Tapping Test Moderate Impairment Left Foot Tapping Test Moderate Impairment Vital Signs Pulse 1 Pulse Assessment Method Palpation PT-OP-Q Treatments Start: 12/08/23 17:12 Freq: Status: Active Protocol: Document 12/28/23 12:57 AB (Rec: 12/28/23 13:47 AB [id number]) Cardio Equipment Bicycle (Upright) Duration (Minutes) 3 Resistance none added Seat Position 6 Other 3.5 minutes not 3 Therapeutic Exercises Supine Exercises modified restorative pose with breathing from diaphragm Supine Exercise Name LE's elevated 90/90 verbal cues for breathing from diaphragm Reps/Minutes x2 Sitting Exercises seated hip abd with band Side bilateral Resistance level one light blue band Reps/Minutes X10 Standing Exercises squats Resistance with band light blue level Reps/Minutes X10 Comments verbal cues to keep tension on band heel raise Reps/Minutes 10x Therapeutic Activity Therapeutic Activity supine to sit Comments Verbal cues too scoot back in sitting prior to sit to sidelying. Neuro Re-Education Treatment Balance Activities marching on air ex Details hand above bar Reps/Duration X10 Comments CGA SLS Details hand above bar Reps/Duration X3 Comments CGA tandem stand Details hand above bar Reps/Duration 10 feet X 6 PT-OP-T Assessment and Plan Start: 12/08/23 17:12 Freq: Status: Active Protocol: Document 12/28/23 12:57 AB (Rec: 12/28/23 13:47 AB [id number]) Physical Therapy Assessment Goals Four Impairment balance dysfunction with high risk for falls Longterm Goal (LTG) Improve functional balance as evidenced by Florence balance score in the low fall risk range (unable to complete test due to activity intolerance today) LTG Duration 03/10/24 Three Impairment activity intolerance Short Term Goal (STG) Patient will be able to ambulate for at least 5 min without need for a rest break STG Duration 01/20/24 Open Soaper Tender Goal (LTG) Patient will be able to walk for at least 15 min without rest break to allow for short distance community mobility LTG Duration 03/10/24 Two Impairment gait dysfunction Impairment patient requires the use of a cane for gait Longterm Goal (LTG) Patient able to ambulate on level surfaces and stairs without assistive device with no evidence for imbalance LTG Duration 03/10/24 One Impairment weakness Short Term Goal (STG) Patient to be instructed in HEP for strengthening cindy UE's and LE's STG Duration 01/20/24 Open Soaper Tender Goal (LTG) Patient to be independent and compliant with HEP and demonstrate improvement in strength to at least 4+/5 throughout LTG Duration 03/10/24 Assessment Summary Assessment BP post balance exercises right UE seated 117/82 HR 77 BPM. One seated rest X 2 hooklying rests during this session. Patient reports right hip pain 6.5/10 right knee8.5 /10 end of session Physical Therapy Plan Frequency and Duration Frequency of Treatment 2x/Week Duration of treatment (weeks) 12 Plan of Care Start Date 12/09/23 Plan of Care End Date 03/10/24 Next Visit Focus/Plan Next Note Type Treatment Note Next Visit Plan Continue gait and balance training, strengthening while monitoring vitals and signs and symptoms of POTS.
--- NOTE | 2023-12-31 10:55 | PT.OTN ---
Current Diagnoses Cerebral infarction, unspecified (12/31/23) Fibromyalgia (12/31/23) Physical Therapy Treatment Note PT-OP-A Visit Information Start: 12/08/23 17:12 Freq: Status: Active Protocol: Document 12/31/23 09:45 SW (Rec: 12/31/23 10:55 SW [id number]) Out-Patient Physical Therapy Visit Information Visit Information Visit Type Treatment Note Visit Note pt late- parking Visit Start Time 09:50 Visit Stop Time 10:30 Visit Number 6 Number of FITNESS SUPERVISOR Visits 2 Precautions Precautions history fibromyalgia, TIA PT-OP-B Current Condition Start: 12/08/23 17:12 Freq: Status: Active Protocol: Document 12/24/23 11:17 SAK (Rec: 12/24/23 13:01 SAK [id number]) Current Condition History of Current Condition Onset Date 11/06/23 Current Complaints weakness and difficulty walking History of Current Condition Had episode of dizziness and inability to walk or talk. Also reports some difficulty with swallowing. More weakness left side. Had dizziness and inability to walk or talk while at basketball game, had to be helped down from the stands. Initially thought TIA and tachycardia. Prior episodes of brain fog and discoordination. Has ungnosed POTS. Histoery of fibromyalgia, seeing specialist 01/15/24. Sees neurologist 12/11/23, plugman 12/29/23. 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 Sees chiropractor. History plantar fascitis hypothyroidism and Russel's disorder. Inconsistently taking BP and HR at home due to chaos at home. Very limited activity level at this time. Constant MICHEL. Difficulty filling out paperwork due to brain fog. Dizziness today when looking down at papererwork or durng mobility. HIstory of ear tubes. Prior Treatments and Tests inpatient CT no acute intracranial abnormality PT-OP-C Subjective Start: 12/08/23 17:12 Freq: Status: Active Protocol: Document 12/31/23 09:45 SW (Rec: 12/31/23 10:55 SW [id number]) OP-PT Subjective Patient Comments Patient Comments Pt reports to PT without AD and reports not using walking stick at all, stops and sits when feeling tired. Pt reports only having to push button twice. Pt would like to be able to do stress test on treadmill for heart, though pt reports unable at this time d /t safety concerns. PT-OP-D Balance Start: 12/08/23 17:12 Freq: Status: Active Protocol: Document 12/09/23 08:09 [facility] (Rec: 12/10/23 17:28 [facility] [id number]) OP-PT Balance Assessment Sitting Balance Static Sitting Balance Ability Normal Dynamic Sitting Balance Ability Good Standing Balance Static Standing Balance Ability Fair Dynamic Standing Balance Ability Poor Device Used SPC Balance Tests Other Other Balance Tests Performed Unable to perform due to patient activity intolerance Finney Fall Scale Copyright Permission PT-OP-E Functional Tests Start: 12/08/23 17:12 Freq: Status: Active Protocol: Document 12/09/23 08:09 [facility] (Rec: 12/14/23 16:29 [facility] [id number]) Functional Tests 2 Minute Walk Test Comments unable to complete due to activity intolerance PT-OP-G Mobility & Gait Start: 12/08/23 17:12 Freq: Status: Active Protocol: Document 12/09/23 08:09 [facility] (Rec: 12/10/23 17:28 [facility] [id number]) OP Mobility Evaluation Bed Mobility Rolling not done due to dizziness, poor activity tolerance Transfers Sit to Stand able to perform without UE assist but with pressure of legs against chair Bed to Chair Transfers mod use of UE's OP Gait Assessment Gait Gait Assistance Required: Independent Assistive Devices Assistive Device Straight Cane Gait Deviations General Gait Pattern Decreased Stride Length, Decreased Feet Clearance Factors Limiting Gait Function Factors Limiting Gait Function Decreased Activity Tolerance, Decreased Strength, Incoordination Comments Gait Comments dizziness Stair Climbing Evaluation Comments Stair Climbing Comments unable to assess due to activity intolerance PT-OP-H Neuro Start: 12/08/23 17:12 Freq: Status: Active Protocol: Document 12/09/23 08:09 [facility] (Rec: 12/10/23 17:28 [facility] [id number]) Sensation Evaluation Gross Sensation Gross Sensation Left LE Impaired,Right LE Impaired Coordination Evaluation Upper Extremity Tests Right Alternate Nose to Finger Test Moderate Impairment Left Alternate Nose to Finger Test Moderate Impairment Lower Extremity Tests Right Foot Tapping Test Moderate Impairment Left Foot Tapping Test Moderate Impairment Vital Signs Pulse 1 Pulse Assessment Method Palpation PT-OP-Q Treatments Start: 12/08/23 17:12 Freq: Status: Active Protocol: Document 12/31/23 09:45 SW (Rec: 12/31/23 10:55 SW [id number]) Cardio Equipment Recumbent Bicycle Duration (Minutes) 5 Resistance 2 Seat Position 5 Therapeutic Exercises Sitting Exercises Seated breathing from diaphragm Sitting Exercise Name UE's resting on pillows, Patient ed positioning for breathlessness Reps/Minutes 4 min Comments verbal cues for breathing from diaphragm Standing Exercises Lateral stepping Standing Exercise Name Lateral stepping Side bilateral STS Standing Exercise Name STS Reps/Minutes x 5 Comments cues for hip hinge mechanics march Reps/Minutes 10x squats Resistance with band light blue level Reps/Minutes X10 Comments verbal cues to keep tension on band heel raise Reps/Minutes 10x Neuro Re-Education Treatment Balance Activities Marching Details Slow marching for SLS balance Surface stable Equipment // bars Comments cues for core stabilization, mechanics, BRA CGA tandem stand Details EO, EC (1 fingtertip), small head turns, tandem walking PT-OP-T Assessment and Plan Start: 12/08/23 17:12 Freq: Status: Active Protocol: Document 12/31/23 09:45 (Rec: 12/31/23 10:55 [id number]) Physical Therapy Assessment Goals Four Impairment balance dysfunction with high risk for falls Halfway Goal (LTG) Improve functional balance as evidenced by Florence balance score in the low fall risk range (unable to complete test due to activity intolerance today) LTG Duration 03/10/24 Three Impairment activity intolerance Short Term Goal (STG) Patient will be able to ambulate for at least 5 min without need for a rest break STG Duration 01/20/24 Director Of Accreditation Goal (LTG) Patient will be able to walk for at least 15 min without rest break to allow for short distance community mobility LTG Duration 03/10/24 Two Impairment gait dysfunction Impairment patient requires the use of a cane for gait Halfway Goal (LTG) Patient able to ambulate on level surfaces and stairs without assistive device with no evidence for imbalance LTG Duration 03/10/24 One Impairment weakness Short Term Goal (STG) Patient to be instructed in HEP for strengthening cindy UE's and LE's STG Duration 01/20/24 Halfway Goal (LTG) Patient to be independent and compliant with HEP and demonstrate improvement in strength to at least 4+/5 throughout LTG Duration 03/10/24 Assessment Summary Assessment BP 105/79 BAR 110/81 EOS. Pt tolerated session well, reports no dizziness throughout session today. Pt required minimal seated rest breaks this session x2. Pt progressed tolerance to standing exercises today, able to increase reps, good response. Physical Therapy Plan Frequency and Duration Frequency of Treatment 2x/Week Duration of treatment (weeks) 12 Plan of Care Start Date 12/09/23 Plan of Care End Date 03/10/24 Therapeutic Interventions Therapeutic Interventions Balance Training,Gait Training ,Home Exercise Program, Neuromuscular Re-education, Patient/Caregiver Education, Self-Care/Home Management, Taping,Therapeutic Activities, Therapeutic Exercises Modalities Cold Pack/Ice Massage,Electric Stimulation,Hot Packs Next Visit Focus/Plan Next Note Type Treatment Note Next Visit Plan Continue gait and balance training, strengthening while monitoring vitals and signs and symptoms of POTS.
--- NOTE | 2024-01-06 12:08 | PT.OTN ---
Current Diagnoses Cerebral infarction, unspecified (01/06/24) Fibromyalgia (01/06/24) Physical Therapy Treatment Note PT-OP-A Visit Information Start: 12/08/23 17:12 Freq: Status: Active Protocol: Document 01/06/24 08:10 SAK (Rec: 01/06/24 09:03 [facility] [id number]) Out-Patient Physical Therapy Visit Information Visit Information Visit Type Treatment Note Visit Note BP: 106/76, HR 83 beginning of treatment 114/80, HR 85 midway through treatment Visit Start Time 08:15 Visit Stop Time 08:45 Visit Number 7 Number of MECHANOTHERAPIST Visits 0 Evaluation Information Evaluation Date 12/09/23 Precautions Precautions history fibromyalgia, TIA PT-OP-B Current Condition Start: 12/08/23 17:12 Freq: Status: Active Protocol: Document 01/06/24 08:10 SAK (Rec: 01/06/24 09:03 [facility] [id number]) Current Condition History of Current Condition Onset Date 11/06/23 Current Complaints weakness and difficulty walking History of Current Condition Had episode of dizziness and inability to walk or talk. Also reports some difficulty with swallowing. More weakness left side. Had dizziness and inability to walk or talk while at basketball game, had to be helped down from the stands. Initially thought TIA and tachycardia. Prior episodes of brain fog and discoordination. Has ungnosed POTS. Histoery of fibromyalgia, seeing specialist 01/15/24. Sees neurologist 12/11/23, service station attendant 12/29/23. 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 Sees chiropractor. History plantar fascitis hypothyroidism and Russel's disorder. Inconsistently taking BP and HR at home due to chaos at home. Very limited activity level at this time. Constant MICHEL. Difficulty filling out paperwork due to brain fog. Dizziness today when looking down at papererwork or durng mobility. HIstory of ear tubes. Prior Treatments and Tests inpatient CT no acute intracranial abnormality PT-OP-C Subjective Start: 12/08/23 17:12 Freq: Status: Active Protocol: Document 01/06/24 08:10 SAK (Rec: 01/06/24 09:03 SAK [id number]) OP-PT Subjective Patient Comments Patient Comments Had accupuncture yesterday, felt like my color came back, has better movement of her neck. Hasn't had to push button on monitor hardly at all. Feeling stronger. PT-OP-D Balance Start: 12/08/23 17:12 Freq: Status: Active Protocol: Document 12/09/23 08:09 SAK (Rec: 12/10/23 17:28 [facility] [id number]) OP-PT Balance Assessment Sitting Balance Static Sitting Balance Ability Normal Dynamic Sitting Balance Ability Good Standing Balance Static Standing Balance Ability Fair Dynamic Standing Balance Ability Poor Device Used SPC Balance Tests Other Other Balance Tests Performed Unable to perform due to patient activity intolerance Finney Fall Scale Copyright Permission PT-OP-E Functional Tests Start: 12/08/23 17:12 Freq: Status: Active Protocol: Document 12/09/23 08:09 SAK (Rec: 12/14/23 16:29 [facility] [id number]) Functional Tests 2 Minute Walk Test Comments unable to complete due to activity intolerance PT-OP-G Mobility & Gait Start: 12/08/23 17:12 Freq: Status: Active Protocol: Document 12/09/23 08:09 [facility] (Rec: 12/10/23 17:28 [facility] [id number]) OP Mobility Evaluation Bed Mobility Rolling not done due to dizziness, poor activity tolerance Transfers Sit to Stand able to perform without UE assist but with pressure of legs against chair Bed to Chair Transfers mod use of UE's OP Gait Assessment Gait Gait Assistance Required: Independent Assistive Devices Assistive Device Straight Cane Gait Deviations General Gait Pattern Decreased Stride Length, Decreased Feet Clearance Factors Limiting Gait Function Factors Limiting Gait Function Decreased Activity Tolerance, Decreased Strength, Incoordination Comments Gait Comments dizziness Stair Climbing Evaluation Comments Stair Climbing Comments unable to assess due to activity intolerance PT-OP-H Neuro Start: 12/08/23 17:12 Freq: Status: Active Protocol: Document 12/09/23 08:09 [facility] (Rec: 12/10/23 17:28 [facility] [id number]) Sensation Evaluation Gross Sensation Gross Sensation Left LE Impaired,Right LE Impaired Coordination Evaluation Upper Extremity Tests Right Alternate Nose to Finger Test Moderate Impairment Left Alternate Nose to Finger Test Moderate Impairment Lower Extremity Tests Right Foot Tapping Test Moderate Impairment Left Foot Tapping Test Moderate Impairment Vital Signs Pulse 1 Pulse Assessment Method Palpation PT-OP-Q Treatments Start: 12/08/23 17:12 Freq: Status: Active Protocol: Document 01/06/24 08:10 [facility] (Rec: 01/06/24 09:03 [facility] [id number]) Cardio Equipment Bicycle (Upright) Duration (Minutes) 5 Resistance 2 Seat Position 6 Treadmill Duration (Minutes) 5 Speed 1.0-1.5 mph Incline 0 Gym Equipment Shuttle Balance chains red Details bal and wt shift Comments fwd/bck, side Therapeutic Exercises Standing Exercises HC stretch Equipment Used JOVANI Reps/Minutes 2x30 quad stretch Equipment Used chair Reps/Minutes 2x30 Neuro Re-Education Treatment Balance Activities foam walk Details green, black, blue Equipment parallel bars Reps/Duration 3 min Comments min UE support Marching Details Slow marching for SLS balance Surface stable Equipment // bars Comments cues for core stabilization, mechanics, BAR CGA SLS Details hand above bar Reps/Duration X3 Comments CGA tandem stand Details EO, EC (1 fingtertip), small head turns, tandem walking PT-OP-T Assessment and Plan Start: 12/08/23 17:12 Freq: Status: Active Protocol: Document 01/06/24 08:10 [facility] (Rec: 01/06/24 09:03 [facility] [id number]) Physical Therapy Assessment Goals Four Impairment balance dysfunction with high risk for falls Senior Principal Process Engineer Goal (LTG) Improve functional balance as evidenced by Florence balance score in the low fall risk range (unable to complete test due to activity intolerance today) LTG Duration 03/10/24 Three Impairment activity intolerance Short Term Goal (STG) Patient will be able to ambulate for at least 5 min without need for a rest break STG Duration 01/20/24 Prison Goal (LTG) Patient will be able to walk for at least 15 min without rest break to allow for short distance community mobility LTG Duration 03/10/24 Two Impairment gait dysfunction Impairment patient requires the use of a cane for gait Senior Principal Process Engineer Goal (LTG) Patient able to ambulate on level surfaces and stairs without assistive device with no evidence for imbalance LTG Duration 03/10/24 One Impairment weakness Short Term Goal (STG) Patient to be instructed in HEP for strengthening cindy UE's and LE's STG Duration 01/20/24 Senior Principal Process Engineer Goal (LTG) Patient to be independent and compliant with HEP and demonstrate improvement in strength to at least 4+/5 throughout LTG Duration 03/10/24 Assessment Summary Assessment Compliant to HEP, improving functional strength and activity tolerance. good tolerance for progression of ther ex and neuro re-ed, improved functional balance. Vital signs stable, no dizziness or pain. No LOB and is ambulating without assistive device Physical Therapy Plan Frequency and Duration Frequency of Treatment 2x/Week Duration of treatment (weeks) 12 Plan of Care Start Date 12/09/23 Plan of Care End Date 03/10/24 Therapeutic Interventions Therapeutic Interventions Balance Training,Gait Training ,Home Exercise Program, Neuromuscular Re-education, Patient/Caregiver Education, Self-Care/Home Management, Taping,Therapeutic Activities, Therapeutic Exercises Modalities Cold Pack/Ice Massage,Electric Stimulation,Hot Packs Next Visit Focus/Plan Next Note Type Treatment Note Next Visit Plan Continue progression of ther ex, balance, gait training. Continue to monitor vital signs, signs and symptoms of cardiac distress.
--- NOTE | 2024-01-08 12:09 | PT.OTN ---
Current Diagnoses Cerebral infarction, unspecified (01/08/24) Fibromyalgia (01/08/24) Physical Therapy Treatment Note PT-OP-A Visit Information Start: 12/08/23 17:12 Freq: Status: Active Protocol: Document 01/08/24 11:22 AB (Rec: 01/08/24 12:09 AB [id number]) Out-Patient Physical Therapy Visit Information Visit Information Visit Type Treatment Note Visit Note [email or web address]/ Access code Visit Start Time 11:20 Visit Stop Time 12:04 Visit Number 8 Number of EXPERIMENTAL TECHNICIAN Visits 1 PT-OP-B Current Condition Start: 12/08/23 17:12 Freq: Status: Active Protocol: Document 01/06/24 08:10 SAK (Rec: 01/06/24 09:03 SAK [id number]) Current Condition History of Current Condition Onset Date 11/06/23 Current Complaints weakness and difficulty walking History of Current Condition Had episode of dizziness and inability to walk or talk. Also reports some difficulty with swallowing. More weakness left side. Had dizziness and inability to walk or talk while at basketball game, had to be helped down from the stands. Initially thought TIA and tachycardia. Prior episodes of brain fog and discoordination. Has ungnosed POTS. Histoery of fibromyalgia, seeing specialist 01/15/24. 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 Sees chiropractor. History plantar fascitis hypothyroidism and Russel's disorder. Inconsistently taking BP and HR at home due to chaos at home. Very limited activity level at this time. Constant MICHEL. Difficulty filling out paperwork due to brain fog. Dizziness today when looking down at papererwork or durng mobility. HIstory of ear tubes. Prior Treatments and Tests inpatient CT no acute intracranial abnormality PT-OP-C Subjective Start: 12/08/23 17:12 Freq: Status: Active Protocol: Document 01/08/24 11:22 AB (Rec: 01/08/24 12:09 AB [id number]) OP-PT Subjective Patient Comments Patient Comments Patient reports she feels better, was tired due to all the things she has been doing. Patient reports she has a headache all the time, has a head ache and eye ache right now. Left UE seated BP 115/80, HR 98 PT-OP-D Balance Start: 12/08/23 17:12 Freq: Status: Active Protocol: Document 12/09/23 08:09 SAK (Rec: 12/10/23 17:28 [facility] [id number]) OP-PT Balance Assessment Sitting Balance Static Sitting Balance Ability Normal Dynamic Sitting Balance Ability Good Standing Balance Static Standing Balance Ability Fair Dynamic Standing Balance Ability Poor Device Used SPC Balance Tests Other Other Balance Tests Performed Unable to perform due to patient activity intolerance Finney Fall Scale Copyright Permission PT-OP-E Functional Tests Start: 12/08/23 17:12 Freq: Status: Active Protocol: Document 12/09/23 08:09 SAK (Rec: 12/14/23 16:29 SAK [id number]) Functional Tests 2 Minute Walk Test Comments unable to complete due to activity intolerance PT-OP-G Mobility & Gait Start: 12/08/23 17:12 Freq: Status: Active Protocol: Document 12/09/23 08:09 SAK (Rec: 12/10/23 17:28 [facility] [id number]) OP Mobility Evaluation Bed Mobility Rolling not done due to dizziness, poor activity tolerance Transfers Sit to Stand able to perform without UE assist but with pressure of legs against chair Bed to Chair Transfers mod use of UE's OP Gait Assessment Gait Gait Assistance Required: Independent Assistive Devices Assistive Device Straight Cane Gait Deviations General Gait Pattern Decreased Stride Length, Decreased Feet Clearance Factors Limiting Gait Function Factors Limiting Gait Function Decreased Activity Tolerance, Decreased Strength, Incoordination Comments Gait Comments dizziness Stair Climbing Evaluation Comments Stair Climbing Comments unable to assess due to activity intolerance PT-OP-H Neuro Start: 12/08/23 17:12 Freq: Status: Active Protocol: Document 12/09/23 08:09 SAK (Rec: 12/10/23 17:28 [facility] [id number]) Sensation Evaluation Gross Sensation Gross Sensation Left LE Impaired,Right LE Impaired Coordination Evaluation Upper Extremity Tests Right Alternate Nose to Finger Test Moderate Impairment Left Alternate Nose to Finger Test Moderate Impairment Lower Extremity Tests Right Foot Tapping Test Moderate Impairment Left Foot Tapping Test Moderate Impairment Vital Signs Pulse 1 Pulse Assessment Method Palpation PT-OP-Q Treatments Start: 12/08/23 17:12 Freq: Status: Active Protocol: Document 01/08/24 11:22 AB (Rec: 01/08/24 12:09 AB [id number]) Gym Equipment Shuttle Balance chains red Details bal and wt shift Comments fwd/bck, side and stagger stance with visual scanning Therapeutic Exercises Sitting Exercises seated hip abd with band Side bilateral Resistance level 2 teal band Reps/Minutes X10 x2 and one one minute hold Standing Exercises HC stretch Side bilateral Equipment Used JOVANI Reps/Minutes 60 seconds with knees bent, 60 seconds with knees straight X 2 squats Resistance with band light blue level Reps/Minutes X10X2 Comments verbal cues to keep tension on band heel raise Reps/Minutes 10x Therapeutic Activity Therapeutic Activity sit to stand Name reviewed Reps/Minutes X3 Comments monitored for pain, limited by knee pain Neuro Re-Education Treatment Balance Activities step up taps Details without UE use Equipment 6 inch step Reps/Duration X15 Comments CGA tandem stepping Reps/Duration 10ft X 4 Comments CGA SLS Details hand above bar Equipment parallel bar Reps/Duration X1 Comments CGA PT-OP-T Assessment and Plan Start: 12/08/23 17:12 Freq: Status: Active Protocol: Document 01/08/24 11:22 AB (Rec: 01/08/24 12:09 AB [id number]) Physical Therapy Assessment Goals Four Impairment balance dysfunction with high risk for falls Photographic Equipment Mechanic Goal (LTG) Improve functional balance as evidenced by Florence balance score in the low fall risk range (unable to complete test due to activity intolerance today) LTG Duration 03/10/24 Three Impairment activity intolerance Short Term Goal (STG) Patient will be able to ambulate for at least 5 min without need for a rest break STG Duration 01/20/24 Photographic Equipment Mechanic Goal (LTG) Patient will be able to walk for at least 15 min without rest break to allow for short distance community mobility LTG Duration 03/10/24 Two Impairment gait dysfunction Impairment patient requires the use of a cane for gait Detention Goal (LTG) Patient able to ambulate on level surfaces and stairs without assistive device with no evidence for imbalance LTG Duration 03/10/24 One Impairment weakness Short Term Goal (STG) Patient to be instructed in HEP for strengthening cindy UE's and LE's STG Duration 01/20/24 Photographic Equipment Mechanic Goal (LTG) Patient to be independent and compliant with HEP and demonstrate improvement in strength to at least 4+/5 throughout LTG Duration 03/10/24 Assessment Summary Assessment post squats and seated hip abd 107/80 HR 101 left UE seated at rest O2 sat 98%, end of session BP 117/87 hr 87 bpm. Good tolerance to progression of band with seated hip abduction, band and increased repetition of squats this session. Physical Therapy Plan Frequency and Duration Frequency of Treatment 2x/Week Duration of treatment (weeks) 12 Plan of Care Start Date 12/09/23 Plan of Care End Date 03/10/24 Next Visit Focus/Plan Next Note Type Treatment Note Next Visit Plan Continue progression of ther ex, balance, gait training. Continue to monitor vital signs, signs and symptoms of cardiac distress.
--- NOTE | 2024-01-11 11:16 | PT.OTN ---
Current Diagnoses Cerebral infarction, unspecified (01/11/24) Fibromyalgia (01/11/24) Physical Therapy Treatment Note PT-OP-A Visit Information Start: 12/08/23 17:12 Freq: Status: Active Protocol: Document 01/11/24 10:36 SP (Rec: 01/11/24 11:24 SP [id number]) Out-Patient Physical Therapy Visit Information Visit Information Visit Type Treatment Note Visit Start Time 10:36 Visit Stop Time 11:16 Visit Number 9 Number of DIRECTOR VISUAL Visits 2 Evaluation Information Evaluation Date 12/09/23 Precautions Precautions history fibromyalgia, TIA PT-OP-B Current Condition Start: 12/08/23 17:12 Freq: Status: Active Protocol: Document 01/06/24 08:10 SAK (Rec: 01/06/24 09:03 SAK [id number]) Current Condition History of Current Condition Onset Date 11/06/23 Current Complaints weakness and difficulty walking History of Current Condition Had episode of dizziness and inability to walk or talk. Also reports some difficulty with swallowing. More weakness left side. Had dizziness and inability to walk or talk while at basketball game, had to be helped down from the stands. Initially thought TIA and tachycardia. Prior episodes of brain fog and discoordination. Has ungnosed POTS. Histoery of fibromyalgia, seeing specialist 01/15/24. 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 Sees chiropractor. History plantar fascitis hypothyroidism and Russel's disorder. Inconsistently taking BP and HR at home due to chaos at home. Very limited activity level at this time. Constant MICHEL. Difficulty filling out paperwork due to brain fog. Dizziness today when looking down at papererwork or durng mobility. HIstory of ear tubes. Prior Treatments and Tests inpatient CT no acute intracranial abnormality PT-OP-C Subjective Start: 12/08/23 17:12 Freq: Status: Active Protocol: Document 01/11/24 10:36 SP (Rec: 01/11/24 11:24 SP [id number]) OP-PT Subjective Patient Comments Patient Comments Pt reports like keep all ex in case regresses has to refer to. BP L UE automatic arrival: 114 /78 HR 85 bpm She reports still has She reports is getting better less instances of cognitive fozziness eg carrying wet load laundry. She was able to get up to 2mph on TM in PT. Is trying but over challenging activities, mindful what safe to do. She reported went to chiropractor this am, 1x/wk on Thu's laser tx and mobility shld's, clavicle and hips. She reports hard time sleeping: shlds achiness, neck zaps and headaches. PT-OP-D Balance Start: 12/08/23 17:12 Freq: Status: Active Protocol: Document 12/09/23 08:09 [facility] (Rec: 12/10/23 17:28 [facility] [id number]) OP-PT Balance Assessment Sitting Balance Static Sitting Balance Ability Normal Dynamic Sitting Balance Ability Good Standing Balance Static Standing Balance Ability Fair Dynamic Standing Balance Ability Poor Device Used SPC Balance Tests Other Other Balance Tests Performed Unable to perform due to patient activity intolerance Finney Fall Scale Copyright Permission PT-OP-E Functional Tests Start: 12/08/23 17:12 Freq: Status: Active Protocol: Document 12/09/23 08:09 [facility] (Rec: 12/14/23 16:29 [facility] [id number]) Functional Tests 2 Minute Walk Test Comments unable to complete due to activity intolerance PT-OP-G Mobility & Gait Start: 12/08/23 17:12 Freq: Status: Active Protocol: Document 12/09/23 08:09 [facility] (Rec: 12/10/23 17:28 [facility] [id number]) OP Mobility Evaluation Bed Mobility Rolling not done due to dizziness, poor activity tolerance Transfers Sit to Stand able to perform without UE assist but with pressure of legs against chair Bed to Chair Transfers mod use of UE's OP Gait Assessment Gait Gait Assistance Required: Independent Assistive Devices Assistive Device Straight Cane Gait Deviations General Gait Pattern Decreased Stride Length, Decreased Feet Clearance Factors Limiting Gait Function Factors Limiting Gait Function Decreased Activity Tolerance, Decreased Strength, Incoordination Comments Gait Comments dizziness Stair Climbing Evaluation Comments Stair Climbing Comments unable to assess due to activity intolerance PT-OP-H Neuro Start: 12/08/23 17:12 Freq: Status: Active Protocol: Document 12/09/23 08:09 [facility] (Rec: 12/10/23 17:28 [facility] [id number]) Sensation Evaluation Gross Sensation Gross Sensation Left LE Impaired,Right LE Impaired Coordination Evaluation Upper Extremity Tests Right Alternate Nose to Finger Test Moderate Impairment Left Alternate Nose to Finger Test Moderate Impairment Lower Extremity Tests Right Foot Tapping Test Moderate Impairment Left Foot Tapping Test Moderate Impairment Vital Signs Pulse 1 Pulse Assessment Method Palpation PT-OP-Q Treatments Start: 12/08/23 17:12 Freq: Status: Active Protocol: Document 01/11/24 10:36 SP (Rec: 01/11/24 11:24 SP [id number]) Cardio Equipment Treadmill Duration (Minutes) 5 Speed 1.0-1.8 mph Incline 0 Other hanging onto front handles Gym Equipment Shuttle Balance chains red Details wt shift, balance Comments f/b wt shift balance ft inside 4s: HTs horizontal, vertical arms side CGA, arm swing with head turns & visual scanning to side arms back swing. Therapeutic Exercises Sitting Exercises HS stretch Sitting Exercise Name post hip abd /c TB Side bilateral Resistance each le Reps/Minutes 20 SH 3 positions (fwd, med, lat) Comments good feedback reduction tightness L lat HS & glut seated hip abd with band Side bilateral Resistance level 2 teal band Reps/Minutes 2x10, 2x one minute hold Comments good hip abd burning workout Standing Exercises HC stretch Standing Exercise Name Gastroc/soleus stretch Side bilateral Equipment Used bottom step, rail support Reps/Minutes 1 time each LE and position Comments occasional cues for set up/ form good calf stretch L>R squats Resistance with band aqua #2 at distal thigh Reps/Minutes 2x10 Comments improved maintain abd, breath /c effort asd/desc not light forceful heel raise Equipment Used rail /c off bottom step, PRN rail rocking f/b JOVANI Reps/Minutes 10x each surface Comments good PT-OP-T Assessment and Plan Start: 12/08/23 17:12 Freq: Status: Active Protocol: Document 01/11/24 10:36 SP (Rec: 01/11/24 11:24 SP [id number]) Physical Therapy Assessment Goals Four Impairment balance dysfunction with high risk for falls Rehab Rn Goal (LTG) Improve functional balance as evidenced by Florence balance score in the low fall risk range (unable to complete test due to activity intolerance today) LTG Duration 03/10/24 Three Impairment activity intolerance Short Term Goal (STG) Patient will be able to ambulate for at least 5 min without need for a rest break STG Duration 01/20/24 Usp Goal (LTG) Patient will be able to walk for at least 15 min without rest break to allow for short distance community mobility LTG Duration 03/10/24 Two Impairment gait dysfunction Impairment patient requires the use of a cane for gait Usp Goal (LTG) Patient able to ambulate on level surfaces and stairs without assistive device with no evidence for imbalance LTG Duration 03/10/24 One Impairment weakness Short Term Goal (STG) Patient to be instructed in HEP for strengthening cindy UE's and LE's STG Duration 01/20/24 Usp Goal (LTG) Patient to be independent and compliant with HEP and demonstrate improvement in strength to at least 4+/5 throughout LTG Duration 03/10/24 Assessment Summary Assessment LUE BP post TM: B 109/78 HR 97 100% SaO2. Pt good endurance, no SOB. Improved dynamic calf raises over JOVANI for balance component, assisted improved stability on shuttle balance able put arms down at side, head turn/eyes tracking ROM can, limited more R. BP WNLs, nonsymptomatic. Cued x1 breath exhale during effort asc/desc squat. Physical Therapy Plan Frequency and Duration Frequency of Treatment 2x/Week Duration of treatment (weeks) 12 Plan of Care Start Date 12/09/23 Plan of Care End Date 03/10/24 Therapeutic Interventions Therapeutic Interventions Balance Training,Gait Training ,Home Exercise Program, Neuromuscular Re-education, Patient/Caregiver Education, Self-Care/Home Management, Taping,Therapeutic Activities, Therapeutic Exercises Modalities Cold Pack/Ice Massage,Electric Stimulation,Hot Packs Next Visit Focus/Plan Next Note Type Treatment Note Next Visit Plan Continue progression of ther ex, balance, gait training. Trial pivot turns hallway, uneven surfaces. Continue to monitor vital signs, signs and symptoms of cardiac distress.
--- NOTE | 2024-01-18 09:26 | PT.OTN ---
Current Diagnoses Cerebral infarction, unspecified (01/18/24) Fibromyalgia (01/18/24) Physical Therapy Treatment Note PT-OP-A Visit Information Start: 12/08/23 17:12 Freq: Status: Active Protocol: Document 01/18/24 08:09 AB (Rec: 01/18/24 09:22 AB [id number]) Out-Patient Physical Therapy Visit Information Visit Information Visit Type Treatment Note Visit Note LEMKFBCE/ Access code Visit Start Time 08:19 Visit Stop Time 09:08 Visit Number 10 Number of WHOLESALE ACCOUNT EXECUTIVE Visits 3 Evaluation Information Evaluation Date 12/09/23 Precautions Precautions history fibromyalgia, TIA PT-OP-B Current Condition Start: 12/08/23 17:12 Freq: Status: Active Protocol: Document 01/06/24 08:10 SAK (Rec: 01/06/24 09:03 SAK [id number]) Current Condition History of Current Condition Onset Date 11/06/23 Current Complaints weakness and difficulty walking History of Current Condition Had episode of dizziness and inability to walk or talk. Also reports some difficulty with swallowing. More weakness left side. Had dizziness and inability to walk or talk while at basketball game, had to be helped down from the stands. Initially thought TIA and tachycardia. Prior episodes of brain fog and discoordination. Has ungnosed POTS. Histoery of fibromyalgia, seeing specialist 01/15/24. 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 Sees chiropractor. History plantar fascitis hypothyroidism and Russel's disorder. Inconsistently taking BP and HR at home due to chaos at home. Very limited activity level at this time. Constant MICHEL. Difficulty filling out paperwork due to brain fog. Dizziness today when looking down at papererwork or durng mobility. HIstory of ear tubes. Prior Treatments and Tests inpatient CT no acute intracranial abnormality PT-OP-C Subjective Start: 12/08/23 17:12 Freq: Status: Active Protocol: Document 01/18/24 08:09 AB (Rec: 01/18/24 09:22 AB [id number]) OP-PT Subjective Patient Comments Patient Comments Pt reports she went to chiropractor and legs are remaining the same length. Patient reports she went to a fibromyalgia specialist in [place], Dr Chua, who is ordering CT scan and MRI. Patient report she didn't get much sleep last night. PT-OP-D Balance Start: 12/08/23 17:12 Freq: Status: Active Protocol: Document 12/09/23 08:09 SAK (Rec: 12/10/23 17:28 [facility] [id number]) OP-PT Balance Assessment Sitting Balance Static Sitting Balance Ability Normal Dynamic Sitting Balance Ability Good Standing Balance Static Standing Balance Ability Fair Dynamic Standing Balance Ability Poor Device Used SPC Balance Tests Other Other Balance Tests Performed Unable to perform due to patient activity intolerance Finney Fall Scale Copyright Permission PT-OP-E Functional Tests Start: 12/08/23 17:12 Freq: Status: Active Protocol: Document 01/18/24 08:08 AB (Rec: 01/18/24 09:24 AB [id number]) Functional Tests Other Florence balance scale Name of Test Florence balance scale Score 51/56 Comment Independent PT-OP-G Mobility & Gait Start: 12/08/23 17:12 Freq: Status: Active Protocol: Document 12/09/23 08:09 SAK (Rec: 12/10/23 17:28 [facility] [id number]) OP Mobility Evaluation Bed Mobility Rolling not done due to dizziness, poor activity tolerance Transfers Sit to Stand able to perform without UE assist but with pressure of legs against chair Bed to Chair Transfers mod use of UE's OP Gait Assessment Gait Gait Assistance Required: Independent Assistive Devices Assistive Device Straight Cane Gait Deviations General Gait Pattern Decreased Stride Length, Decreased Feet Clearance Factors Limiting Gait Function Factors Limiting Gait Function Decreased Activity Tolerance, Decreased Strength, Incoordination Comments Gait Comments dizziness Stair Climbing Evaluation Comments Stair Climbing Comments unable to assess due to activity intolerance PT-OP-H Neuro Start: 12/08/23 17:12 Freq: Status: Active Protocol: Document 12/09/23 08:09 SAK (Rec: 12/10/23 17:28 [facility] [id number]) Sensation Evaluation Gross Sensation Gross Sensation Left LE Impaired,Right LE Impaired Coordination Evaluation Upper Extremity Tests Right Alternate Nose to Finger Test Moderate Impairment Left Alternate Nose to Finger Test Moderate Impairment Lower Extremity Tests Right Foot Tapping Test Moderate Impairment Left Foot Tapping Test Moderate Impairment Vital Signs Pulse 1 Pulse Assessment Method Palpation PT-OP-Q Treatments Start: 12/08/23 17:12 Freq: Status: Active Protocol: Document 01/18/24 08:09 AB (Rec: 01/18/24 09:22 AB [id number]) Therapeutic Exercises Sitting Exercises seated hip abd with band Side bilateral Resistance level 2 teal band Reps/Minutes 2x10, 2x one minute hold Comments Verbal cues for breathing post Standing Exercises squats Resistance with band aqua #2 at distal thigh Reps/Minutes 2x10 Comments review as patient has been ill and not performing HEP since 01/12/2024 Neuro Re-Education Treatment Balance Activities step up taps Details hands above parallel bars Equipment 8 inch step Reps/Duration x15 Comments CGA tandem stepping Details with visual scanning, head turns and counting back from 100 by 2's Reps/Duration 10ft X 6 Comments CGA, hands above parallel bars Marching Details Slow marching for SLS balance Surface on blue cushion Equipment // bars, blue cushion Comments hands above bars CGA PT-OP-T Assessment and Plan Start: 12/08/23 17:12 Freq: Status: Active Protocol: Document 01/18/24 08:09 AB (Rec: 01/18/24 09:22 AB [id number]) Physical Therapy Assessment Goals Four Impairment balance dysfunction with high risk for falls Group Home Goal (LTG) Improve functional balance as evidenced by Florence balance score in the low fall risk range (unable to complete test due to activity intolerance today) 01/18/2024: Patient scored 51/ 56 Florence balance scale LTG Duration 03/10/24 Three Impairment activity intolerance Short Term Goal (STG) Patient will be able to ambulate for at least 5 min without need for a rest break 01/18/2024: Patient reports she tolerates a 5-10 minute stroll prior to requiring a rest break, but is not able to ambulate at the pace she was able to previously. STG Duration 01/20/24 Rigging Supervisor Goal (LTG) Patient will be able to walk for at least 15 min without rest break to allow for short distance community mobility LTG Duration 03/10/24 Two Impairment gait dysfunction Impairment patient requires the use of a cane for gait Group Home Goal (LTG) Patient able to ambulate on level surfaces and stairs without assistive device with no evidence for imbalance 01/18/2024 Patient ambulates into [employer] device, reports having episodes of feeling unsteady, but denies having any falls. LTG Duration 03/10/24 One Impairment weakness Short Term Goal (STG) Patient to be instructed in HEP for strengthening cindy UE's and LE's STG Duration 01/20/24 Group Home Goal (LTG) Patient to be independent and compliant with HEP and demonstrate improvement in strength to at least 4+/5 throughout 01/18/2024 Patient reports she had a stomach bug last week hand as not performed HEP since last Thursday (01/12/2024) B hip flex3+/5 B DF 5/5, Quad 4+/5 right 5/5 left, Glute med B 3+/5 Glute max 3+/5, HS L 3+/5 R 4+/5, B LT 3-/5, B MT 3+/5 LTG Duration 03/10/24 Assessment Summary Assessment Delfina reports left hip pain 4.5 /10 end of session. Post muscle and balance testing O2 sat 97% BP 105/88 HR 77 BPM seated left UE. Delfina was unable to tolerate balance testing on eval and now is not only able to tolerated testing but tests at independent level on Florence balance scale. Physical Therapy Plan Frequency and Duration Frequency of Treatment 2x/Week Duration of treatment (weeks) 12 Plan of Care Start Date 12/09/23 Plan of Care End Date 03/10/24 Next Visit Focus/Plan Next Note Type Treatment Note Next Visit Plan Continue progression of ther ex, balance, gait training. Continue to monitor vital signs, signs and symptoms of cardiac distress.
--- NOTE | 2024-01-18 17:06 | PT.OPPN ---
Current Diagnoses Cerebral infarction, unspecified (01/18/24) Fibromyalgia (01/18/24) Physical Therapy Progress Note PT-OP-A Visit Information Start: 12/08/23 17:12 Freq: Status: Active Protocol: Document 01/18/24 17:03 SAK (Rec: 01/18/24 17:06 SAK [id number]) Out-Patient Physical Therapy Visit Information Visit Information Visit Type Progress Note Visit Start Time 17:03 PT-OP-B Current Condition Start: 12/08/23 17:12 Freq: Status: Active Protocol: Document 01/06/24 08:10 SAK (Rec: 01/06/24 09:03 SAK [id number]) Current Condition History of Current Condition Onset Date 11/06/23 Current Complaints weakness and difficulty walking History of Current Condition Had episode of dizziness and inability to walk or talk. Also reports some difficulty with swallowing. More weakness left side. Had dizziness and inability to walk or talk while at basketball game, had to be helped down from the stands. Initially thought TIA and tachycardia. Prior episodes of brain fog and discoordination. Has ungnosed POTS. Histoery of fibromyalgia, seeing specialist 01/15/24. Sees neurologist 12/11/23, efficiency analyst 12/29/23. audit director at [facility] requests might be an option for exercise. Sees chiropractor. History plantar fascitis hypothyroidism and Russel's disorder. Inconsistently taking BP and HR at home due to chaos at home. Very limited activity level at this time. Constant MICHEL. Difficulty filling out paperwork due to brain fog. Dizziness today when looking down at papererwork or durng mobility. HIstory of ear tubes. Prior Treatments and Tests inpatient CT no acute intracranial abnormality PT-OP-C Subjective Start: 12/08/23 17:12 Freq: Status: Active Protocol: Document 01/18/24 17:03 SAK (Rec: 01/18/24 17:06 SAK [id number]) OP-PT Subjective Patient Comments Patient Comments Pt reports she went to chiropractor and legs are remaining the same length. Patient reports she went to a fibromyalgia specialist in [place], Dr Chua, who is ordering CT scan and MRI. Patient report she didn't get much sleep last night. PT-OP-D Balance Start: 12/08/23 17:12 Freq: Status: Active Protocol: Document 12/09/23 08:09 SAK (Rec: 12/10/23 17:28 [facility] [id number]) OP-PT Balance Assessment Sitting Balance Static Sitting Balance Ability Normal Dynamic Sitting Balance Ability Good Standing Balance Static Standing Balance Ability Fair Dynamic Standing Balance Ability Poor Device Used SPC Balance Tests Other Other Balance Tests Performed Unable to perform due to patient activity intolerance Sharmin Fall Scale Copyright Permission Sharmin JM, Sharmin RM, Toña SJ. Development of a scale to identify the fall- prone patient. Can J Aging 1989;8;366-7. Pranav Finney (2009). Preventing patient falls. (2nd ed). [place]: Maza. PT-OP-E Functional Tests Start: 12/08/23 17:12 Freq: Status: Active Protocol: Document 01/18/24 08:08 AB (Rec: 01/18/24 09:24 AB [id number]) Functional Tests Other Florence balance scale Name of Test Florence balance scale Score 51/56 Comment Independent PT-OP-G Mobility & Gait Start: 12/08/23 17:12 Freq: Status: Active Protocol: Document 12/09/23 08:09 [facility] (Rec: 12/10/23 17:28 [facility] [id number]) OP Mobility Evaluation Bed Mobility Rolling not done due to dizziness, poor activity tolerance Transfers Sit to Stand able to perform without UE assist but with pressure of legs against chair Bed to Chair Transfers mod use of UE's OP Gait Assessment Gait Gait Assistance Required: Independent Assistive Devices Assistive Device Straight Cane Gait Deviations General Gait Pattern Decreased Stride Length, Decreased Feet Clearance Factors Limiting Gait Function Factors Limiting Gait Function Decreased Activity Tolerance, Decreased Strength, Incoordination Comments Gait Comments dizziness Stair Climbing Evaluation Comments Stair Climbing Comments unable to assess due to activity intolerance PT-OP-H Neuro Start: 12/08/23 17:12 Freq: Status: Active Protocol: Document 12/09/23 08:09 SAK (Rec: 12/10/23 17:28 [facility] [id number]) Sensation Evaluation Gross Sensation Gross Sensation Left LE Impaired,Right LE Impaired Coordination Evaluation Upper Extremity Tests Right Alternate Nose to Finger Test Moderate Impairment Left Alternate Nose to Finger Test Moderate Impairment Lower Extremity Tests Right Foot Tapping Test Moderate Impairment Left Foot Tapping Test Moderate Impairment Vital Signs Pulse 1 Pulse Assessment Method Palpation PT-OP-T Assessment and Plan Start: 12/08/23 17:12 Freq: Status: Active Protocol: Document 01/18/24 17:03 JOSE (Rec: 01/18/24 17:06 [facility] [id number]) Physical Therapy Assessment Goals Four Impairment balance dysfunction with high risk for falls [facility]ci Goal (LTG) Improve functional balance as evidenced by Florence balance score in the low fall risk range (unable to complete test due to activity intolerance today) 01/18/2024: Patient scored 51/ 56 Florence balance scale LTG Duration 03/10/24 Three Impairment activity intolerance Short Term Goal (STG) Patient will be able to ambulate for at least 5 min without need for a rest break 01/18/2024: Patient reports she tolerates a 5-10 minute stroll prior to requiring a rest break, but is not able to ambulate at the pace she was able to previously. STG Duration 01/20/24 Optical Designer Goal (LTG) Patient will be able to walk for at least 15 min without rest break to allow for short distance community mobility LTG Duration 03/10/24 Two Impairment gait dysfunction Impairment patient requires the use of a cane for gait [facility]ci Goal (LTG) Patient able to ambulate on level surfaces and stairs without assistive device with no evidence for imbalance 01/18/2024 Patient ambulates into Brndstr device, reports having episodes of feeling unsteady, but denies having any falls. LTG Duration 03/10/24 One Impairment weakness Short Term Goal (STG) Patient to be instructed in HEP for strengthening cindy UE's and LE's STG Duration 01/20/24 [facility] Goal (LTG) Patient to be independent and compliant with HEP and demonstrate improvement in strength to at least 4+/5 throughout 01/18/2024 Patient reports she had a stomach bug last week hand as not performed HEP since last Thursday (01/12/2024) B hip flex3+/5 B DF 5/5, Quad 4+/5 right 5/5 left, Glute med B 3+/5 Glute max 3+/5, HS L 3+/5 R 4+/5, B LT 3-/5, B MT 3+/5 LTG Duration 03/10/24 Assessment Summary Assessment Good progress in all goal areas as noted above. Patient has good potential for further improvement with continued skilled PT. Patient to continue medical management with physicians. We will continue to monitor vital signs and for signs and symptoms of cardiac or neurological distress during PT sessions Physical Therapy Plan Frequency and Duration Frequency of Treatment 2x/Week Duration of treatment (weeks) 12 Plan of Care Start Date 12/09/23 Plan of Care End Date 03/10/24 Therapeutic Interventions Therapeutic Interventions Balance Training,Gait Training ,Home Exercise Program, Neuromuscular Re-education, Patient/Caregiver Education, Self-Care/Home Management, Taping,Therapeutic Activities, Therapeutic Exercises Modalities Cold Pack/Ice Massage,Electric Stimulation,Hot Packs Next Visit Focus/Plan Next Note Type Treatment Note Next Visit Plan Continue progression of ther ex, balance, gait training. Continue to monitor vital signs, signs and symptoms of cardiac distress.
--- NOTE | 2024-01-21 15:06 | PT.OTN ---
Current Diagnoses Cerebral infarction, unspecified (01/21/24) Fibromyalgia (01/21/24) Physical Therapy Treatment Note PT-OP-A Visit Information Start: 12/08/23 17:12 Freq: Status: Active Protocol: Document 01/21/24 08:16 SAK (Rec: 01/21/24 09:03 SAK [id number]) Out-Patient Physical Therapy Visit Information Visit Information Visit Type Treatment Note Visit Start Time 08:16 Visit Stop Time 09:00 Visit Number 11 Evaluation Information Evaluation Date 12/09/23 Precautions Precautions history fibromyalgia, TIA PT-OP-B Current Condition Start: 12/08/23 17:12 Freq: Status: Active Protocol: Document 01/06/24 08:10 SAK (Rec: 01/06/24 09:03 SAK [id number]) Current Condition History of Current Condition Onset Date 11/06/23 Current Complaints weakness and difficulty walking History of Current Condition Had episode of dizziness and inability to walk or talk. Also reports some difficulty with swallowing. More weakness left side. Had dizziness and inability to walk or talk while at basketball game, had to be helped down from the stands. Initially thought TIA and tachycardia. Prior episodes of brain fog and discoordination. Has ungnosed POTS. Histoery of fibromyalgia, seeing specialist 01/15/24. Sees neurologist 12/11/23, non destructive testing technician 12/29/23. 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 Sees chiropractor. History plantar fascitis hypothyroidism and Russel's disorder. Inconsistently taking BP and HR at home due to chaos at home. Very limited activity level at this time. Constant MICHEL. Difficulty filling out paperwork due to brain fog. Dizziness today when looking down at papererwork or durng mobility. HIstory of ear tubes. Prior Treatments and Tests inpatient CT no acute intracranial abnormality PT-OP-C Subjective Start: 12/08/23 17:12 Freq: Status: Active Protocol: Document 01/21/24 08:16 SAK (Rec: 01/21/24 09:03 SAK [id number]) OP-PT Subjective Patient Comments Patient Comments Fatigued and stiff this am, was having a little nausea, hoping to stave it off with coffee. Open to trying 6 min walk test. Patient Reported Progress Improving PT-OP-D Balance Start: 12/08/23 17:12 Freq: Status: Active Protocol: Document 12/09/23 08:09 SAK (Rec: 12/10/23 17:28 SAK [id number]) OP-PT Balance Assessment Sitting Balance Static Sitting Balance Ability Normal Dynamic Sitting Balance Ability Good Standing Balance Static Standing Balance Ability Fair Dynamic Standing Balance Ability Poor Device Used SPC Balance Tests Other Other Balance Tests Performed Unable to perform due to patient activity intolerance Finney Fall Scale Copyright Permission PT-OP-E Functional Tests Start: 12/08/23 17:12 Freq: Status: Active Protocol: Document 01/18/24 08:08 AB (Rec: 01/18/24 09:24 AB [id number]) Functional Tests Other Florence balance scale Name of Test Florence balance scale Score 51/56 Comment Independent PT-OP-G Mobility & Gait Start: 12/08/23 17:12 Freq: Status: Active Protocol: Document 12/09/23 08:09 SAK (Rec: 12/10/23 17:28 [facility] [id number]) OP Mobility Evaluation Bed Mobility Rolling not done due to dizziness, poor activity tolerance Transfers Sit to Stand able to perform without UE assist but with pressure of legs against chair Bed to Chair Transfers mod use of UE's OP Gait Assessment Gait Gait Assistance Required: Independent Assistive Devices Assistive Device Straight Cane Gait Deviations General Gait Pattern Decreased Stride Length, Decreased Feet Clearance Factors Limiting Gait Function Factors Limiting Gait Function Decreased Activity Tolerance, Decreased Strength, Incoordination Comments Gait Comments dizziness Stair Climbing Evaluation Comments Stair Climbing Comments unable to assess due to activity intolerance PT-OP-H Neuro Start: 12/08/23 17:12 Freq: Status: Active Protocol: Document 12/09/23 08:09 SAK (Rec: 12/10/23 17:28 [facility] [id number]) Sensation Evaluation Gross Sensation Gross Sensation Left LE Impaired,Right LE Impaired Coordination Evaluation Upper Extremity Tests Right Alternate Nose to Finger Test Moderate Impairment Left Alternate Nose to Finger Test Moderate Impairment Lower Extremity Tests Right Foot Tapping Test Moderate Impairment Left Foot Tapping Test Moderate Impairment Vital Signs Pulse 1 Pulse Assessment Method Palpation PT-OP-Q Treatments Start: 12/08/23 17:12 Freq: Status: Active Protocol: Document 01/21/24 08:16 SAK (Rec: 01/21/24 09:03 SAK [id number]) Gym Equipment Shuttle Recovery Unilateral Squats Resistance 25 Reps/Time 10 Bilateral Squats Resistance 50 Reps/Time 10 Therapeutic Exercises Sidelying Exercises reverse clamshell Reps/Minutes 10x clamshell Reps/Minutes 10x Sitting Exercises piriformis stretch Reps/Minutes 2x30 figure 4 stretch Reps/Minutes 2x30 HS stretch Sitting Exercise Name post hip abd /c TB Side bilateral Resistance each le Reps/Minutes 20 SH 3 positions (fwd, med, lat) Comments good feedback reduction tightness L lat HS & glut Standing Exercises HC stretch Standing Exercise Name Gastroc/soleus stretch Side bilateral Equipment Used bottom step, rail support Reps/Minutes cindy then unil Comments occasional cues for set up/ form good calf stretch L>R quad stretch Equipment Used chair Reps/Minutes 2x30 heel raise Equipment Used rail /c off bottom step, PRN rail rocking f/b JOVANI Reps/Minutes 10x each surface Comments good Gait Training Gait Activity 6 min walk test Device Used none Surface firm Treatment Focus activity tolerance Comments 1225 feet PT-OP-T Assessment and Plan Start: 12/08/23 17:12 Freq: Status: Active Protocol: Document 01/21/24 08:16 [facility] (Rec: 01/21/24 09:03 [facility] [id number]) Physical Therapy Assessment Goals Four Impairment balance dysfunction with high risk for falls Steel Erecting Pusher Goal (LTG) Improve functional balance as evidenced by Florence balance score in the low fall risk range (unable to complete test due to activity intolerance today) 01/18/2024: Patient scored 51/ 56 Florence balance scale LTG Duration 03/10/24 Three Impairment activity intolerance Short Term Goal (STG) Patient will be able to ambulate for at least 5 min without need for a rest break 01/18/2024: Patient reports she tolerates a 5-10 minute stroll prior to requiring a rest break, but is not able to ambulate at the pace she was able to previously. STG Duration 01/20/24 Assisted Goal (LTG) Patient will be able to walk for at least 15 min without rest break to allow for short distance community mobility LTG Duration 03/10/24 Two Impairment gait dysfunction Impairment patient requires the use of a cane for gait Assisted Goal (LTG) Patient able to ambulate on level surfaces and stairs without assistive device with no evidence for imbalance 01/18/2024 Patient ambulates into Bablic device, reports having episodes of feeling unsteady, but denies having any falls. LTG Duration 03/10/24 One Impairment weakness Short Term Goal (STG) Patient to be instructed in HEP for strengthening cindy UE's and LE's STG Duration 01/20/24 Assisted Goal (LTG) Patient to be independent and compliant with HEP and demonstrate improvement in strength to at least 4+/5 throughout 01/18/2024 Patient reports she had a stomach bug last week hand as not performed HEP since last Thursday (01/12/2024) B hip flex3+/5 B DF 5/5, Quad 4+/5 right 5/5 left, Glute med B 3+/5 Glute max 3+/5, HS L 3+/5 R 4+/5, B LT 3-/5, B MT 3+/5 LTG Duration 03/10/24 Assessment Summary Assessment BP 110/80 pulse 100 start of session, after 6 min walk test 107/81 pulse 106. First time able to mira 6 min walk test. C/o right knee pain. Added cindy and unil leg press and cindy clam/reverse clam Physical Therapy Plan Frequency and Duration Frequency of Treatment 2x/Week Duration of treatment (weeks) 12 Plan of Care Start Date 12/09/23 Plan of Care End Date 03/10/24 Therapeutic Interventions Therapeutic Interventions Balance Training,Gait Training ,Home Exercise Program, Neuromuscular Re-education, Patient/Caregiver Education, Self-Care/Home Management, Taping,Therapeutic Activities, Therapeutic Exercises Modalities Cold Pack/Ice Massage,Electric Stimulation,Hot Packs Next Visit Focus/Plan Next Note Type Treatment Note Next Visit Plan ASsess response to today's treatment, new ex. Progress as tolerated. [id number]
--- NOTE | 2024-01-25 16:19 | PT.OTN ---
Current Diagnoses Cerebral infarction, unspecified (01/25/24) Fibromyalgia (01/25/24) Physical Therapy Treatment Note PT-OP-A Visit Information Start: 12/08/23 17:12 Freq: Status: Active Protocol: Document 01/25/24 12:52 AB (Rec: 01/25/24 16:19 AB [id number]) Out-Patient Physical Therapy Visit Information Visit Information Visit Type Treatment Note Visit Note LEMKFBCE/ Access code Visit Start Time 14:34 Visit Stop Time 15:17 Visit Number 12 Number of UNDER CUTTING MACHINE OPERATOR Visits 1 Evaluation Information Evaluation Date 12/09/23 Precautions Precautions history fibromyalgia, TIA PT-OP-B Current Condition Start: 12/08/23 17:12 Freq: Status: Active Protocol: Document 01/06/24 08:10 SAK (Rec: 01/06/24 09:03 SAK [id number]) Current Condition History of Current Condition Onset Date 11/06/23 Current Complaints weakness and difficulty walking History of Current Condition Had episode of dizziness and inability to walk or talk. Also reports some difficulty with swallowing. More weakness left side. Had dizziness and inability to walk or talk while at basketball game, had to be helped down from the stands. Initially thought TIA and tachycardia. Prior episodes of brain fog and discoordination. Has ungnosed POTS. Histoery of fibromyalgia, seeing specialist 01/15/24. Sees neurologist 12/11/23, water sponger 12/29/23. recreation therapy director at [facility] requests might be an option for exercise. Sees chiropractor. History plantar fascitis hypothyroidism and Russel's disorder. Inconsistently taking BP and HR at home due to chaos at home. Very limited activity level at this time. Constant MICHEL. Difficulty filling out paperwork due to brain fog. Dizziness today when looking down at papererwork or durng mobility. HIstory of ear tubes. Prior Treatments and Tests inpatient CT no acute intracranial abnormality PT-OP-C Subjective Start: 12/08/23 17:12 Freq: Status: Active Protocol: Document 01/25/24 12:52 AB (Rec: 01/25/24 16:19 AB [id number]) OP-PT Subjective Patient Comments Patient Comments Patient reports she is having problems with allergies candelario and grass, and is feeling tired. Patient reports she was sore post previous session, and left side was shooting pain up the back, attributes to being too tight, 2 days post last session she was just sore. Pt reports she was able to perform her new exercises. Patient comments this is her first PM appointment. PT-OP-D Balance Start: 12/08/23 17:12 Freq: Status: Active Protocol: Document 12/09/23 08:09 SAK (Rec: 12/10/23 17:28 [facility] [id number]) OP-PT Balance Assessment Sitting Balance Static Sitting Balance Ability Normal Dynamic Sitting Balance Ability Good Standing Balance Static Standing Balance Ability Fair Dynamic Standing Balance Ability Poor Device Used SPC Balance Tests Other Other Balance Tests Performed Unable to perform due to patient activity intolerance Finney Fall Scale Copyright Permission PT-OP-E Functional Tests Start: 12/08/23 17:12 Freq: Status: Active Protocol: Document 01/18/24 08:08 AB (Rec: 01/18/24 09:24 AB [id number]) Functional Tests Other Florence balance scale Name of Test Florence balance scale Score 51/56 Comment Independent PT-OP-G Mobility & Gait Start: 12/08/23 17:12 Freq: Status: Active Protocol: Document 12/09/23 08:09 SAK (Rec: 12/10/23 17:28 [facility] [id number]) OP Mobility Evaluation Bed Mobility Rolling not done due to dizziness, poor activity tolerance Transfers Sit to Stand able to perform without UE assist but with pressure of legs against chair Bed to Chair Transfers mod use of UE's OP Gait Assessment Gait Gait Assistance Required: Independent Assistive Devices Assistive Device Straight Cane Gait Deviations General Gait Pattern Decreased Stride Length, Decreased Feet Clearance Factors Limiting Gait Function Factors Limiting Gait Function Decreased Activity Tolerance, Decreased Strength, Incoordination Comments Gait Comments dizziness Stair Climbing Evaluation Comments Stair Climbing Comments unable to assess due to activity intolerance PT-OP-H Neuro Start: 12/08/23 17:12 Freq: Status: Active Protocol: Document 12/09/23 08:09 SAK (Rec: 12/10/23 17:28 [facility] [id number]) Sensation Evaluation Gross Sensation Gross Sensation Left LE Impaired,Right LE Impaired Coordination Evaluation Upper Extremity Tests Right Alternate Nose to Finger Test Moderate Impairment Left Alternate Nose to Finger Test Moderate Impairment Lower Extremity Tests Right Foot Tapping Test Moderate Impairment Left Foot Tapping Test Moderate Impairment Vital Signs Pulse 1 Pulse Assessment Method Palpation PT-OP-Q Treatments Start: 12/08/23 17:12 Freq: Status: Active Protocol: Document 01/25/24 12:52 AB (Rec: 01/25/24 16:19 AB [id number]) Gym Equipment Shuttle Balance chains red Details wt shift, balance Comments balance with arm swing, visual scanning and head turns, weight shift initiated holding bar then without bar. Therapeutic Exercises Sidelying Exercises reverse clamshell Reps/Minutes 12x clamshell Reps/Minutes 12x Sitting Exercises Seated knee rocking Reps/Minutes one minute Comments to relax muscles post tandem stepping ( reports foot muscles tightening) piriformis stretch Side bilateral Reps/Minutes 60 seconds X 2 figure 4 stretch Side left Reps/Minutes 60 seconds X 2 seated hip abd with band Side bilateral Resistance level 2 teal band Reps/Minutes X15 Comments Verbal cues for breathing post Standing Exercises squats Resistance with band aqua #2 at distal thigh Reps/Minutes 1x10 Comments review as patient has been ill and not performing HEP since 01/12/2024 Neuro Re-Education Treatment Balance Activities step up taps Details hands above parallel bars Equipment 8 inch step Reps/Duration x15 Comments CGA tandem stepping Reps/Duration 10 ft X 4 Comments CGA, hands above parallel bars marching on air ex Details hand above bar Reps/Duration X10 Comments CGA PT-OP-T Assessment and Plan Start: 12/08/23 17:12 Freq: Status: Active Protocol: Document 01/25/24 12:52 AB (Rec: 01/25/24 16:19 AB [id number]) Physical Therapy Assessment Goals Four Impairment balance dysfunction with high risk for falls Skilled Nursing Goal (LTG) Improve functional balance as evidenced by Florence balance score in the low fall risk range (unable to complete test due to activity intolerance today) 01/18/2024: Patient scored 51/ 56 Florence balance scale LTG Duration 03/10/24 Three Impairment activity intolerance Short Term Goal (STG) Patient will be able to ambulate for at least 5 min without need for a rest break 01/18/2024: Patient reports she tolerates a 5-10 minute stroll prior to requiring a rest break, but is not able to ambulate at the pace she was able to previously. STG Duration 01/20/24 Health Safety Coordinator Goal (LTG) Patient will be able to walk for at least 15 min without rest break to allow for short distance community mobility LTG Duration 03/10/24 Two Impairment gait dysfunction Impairment patient requires the use of a cane for gait Skilled Nursing Goal (LTG) Patient able to ambulate on level surfaces and stairs without assistive device with no evidence for imbalance 01/18/2024 Patient ambulates into MyMiniLife[employer] device, reports having episodes of feeling unsteady, but denies having any falls. LTG Duration 03/10/24 One Impairment weakness Short Term Goal (STG) Patient to be instructed in HEP for strengthening cindy UE's and LE's STG Duration 01/20/24 Health Safety Coordinator Goal (LTG) Patient to be independent and compliant with HEP and demonstrate improvement in strength to at least 4+/5 throughout 01/18/2024 Patient reports she had a stomach bug last week hand as not performed HEP since last Thursday (01/12/2024) B hip flex3+/5 B DF 5/5, Quad 4+/5 right 5/5 left, Glute med B 3+/5 Glute max 3+/5, HS L 3+/5 R 4+/5, B LT 3-/5, B MT 3+/5 LTG Duration 03/10/24 Assessment Summary Assessment BP seated left UE start of [id number] HR 113 BPM, O2 sat 99%, post exercise, seated right UE 118/81 HR 113 BPM 98 % O2 sat. Post balance ex end of session 116/82 HR 116 BPMO2 sat 97 %. Patient reports her foot feels fine and her knee doesn't hurt. (audible pop noted during tandem stepping ) Physical Therapy Plan Frequency and Duration Frequency of Treatment 2x/Week Duration of treatment (weeks) 12 Plan of Care Start Date 12/09/23 Plan of Care End Date 03/10/24 Next Visit Focus/Plan Next Note Type Treatment Note Next Visit Plan Progress as tolerated.
--- NOTE | 2024-02-09 15:06 | PT.OTN ---
Addendum entered and electronically signed by Laura Lucas 02/09/24 15:07: Patient advised to make MD aware of increase in headache pain and symptoms that occurred post vacuuming and dusting that are noted in today's note. 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 Also reports some difficulty with swallowing. More weakness left side. Had dizziness and inability to walk or talk while at basketball game, had to be helped down from the stands. Initially thought TIA and tachycardia. Prior episodes of brain fog and discoordination. Has ungnosed POTS. Histoery of fibromyalgia, seeing specialist 01/15/24. 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 Sees chiropractor. History plantar fascitis hypothyroidism and Russel's disorder. Inconsistently taking BP and HR at home due to chaos at home. Very limited activity level at this time. Constant MICHEL. Difficulty filling out paperwork due to brain fog. Dizziness today when looking down at papererwork or durng mobility. HIstory of ear tubes. Prior Treatments and Tests inpatient CT no acute intracranial abnormality PT-OP-C Subjective Start: 12/08/23 17:12 Freq: Status: Active Protocol: Document 02/09/24 13:30 AB (Rec: 02/09/24 15:04 AB [id number]) OP-PT Subjective Patient Comments Patient Comments Patient reports she is not sleeping, migranes are worse. Patient reports she was doing some light dusting and vacuuming and felt fuzzy, heart was pounding, felt throat was being squeezed, went pale, almost passed out. Patient reports she has done her ex less, feels like with wind has been knocked out of her. Also had swallow test, chiropractor Thursday, Acupunture earlier today. Patient into session with a handout of Yoga poses she would like to try. Patient reports superventrical tachycardia showed up on the Zio test/patch. Pt late, but able to accomodate. PT-OP-D Balance Start: 12/08/23 17:12 Freq: Status: Active Protocol: Document 12/09/23 08:09 [facility] (Rec: 12/10/23 17:28 [facility] [id number]) OP-PT Balance Assessment Sitting Balance Static Sitting Balance Ability Normal Dynamic Sitting Balance Ability Good Standing Balance Static Standing Balance Ability Fair Dynamic Standing Balance Ability Poor Device Used SPC Balance Tests Other Other Balance Tests Performed Unable to perform due to patient activity intolerance Finney Fall Scale Copyright Permission PT-OP-E Functional Tests Start: 12/08/23 17:12 Freq: Status: Active Protocol: Document 01/18/24 08:08 AB (Rec: 01/18/24 09:24 AB [id number]) Functional Tests Other Florence balance scale Name of Test Florence balance scale Score 51/56 Comment Independent PT-OP-G Mobility & Gait Start: 12/08/23 17:12 Freq: Status: Active Protocol: Document 12/09/23 08:09 [facility] (Rec: 12/10/23 17:28 [facility] [id number]) OP Mobility Evaluation Bed Mobility Rolling not done due to dizziness, poor activity tolerance Transfers Sit to Stand able to perform without UE assist but with pressure of legs against chair Bed to Chair Transfers mod use of UE's OP Gait Assessment Gait Gait Assistance Required: Independent Assistive Devices Assistive Device Straight Cane Gait Deviations General Gait Pattern Decreased Stride Length, Decreased Feet Clearance Factors Limiting Gait Function Factors Limiting Gait Function Decreased Activity Tolerance, Decreased Strength, Incoordination Comments Gait Comments dizziness Stair Climbing Evaluation Comments Stair Climbing Comments unable to assess due to activity intolerance PT-OP-H Neuro Start: 12/08/23 17:12 Freq: Status: Active Protocol: Document 12/09/23 08:09 SAK (Rec: 12/10/23 17:28 SAK [id number]) Sensation Evaluation Gross Sensation Gross Sensation Left LE Impaired,Right LE Impaired Coordination Evaluation Upper Extremity Tests Right Alternate Nose to Finger Test Moderate Impairment Left Alternate Nose to Finger Test Moderate Impairment Lower Extremity Tests Right Foot Tapping Test Moderate Impairment Left Foot Tapping Test Moderate Impairment Vital Signs Pulse 1 Pulse Assessment Method Palpation PT-OP-Q Treatments Start: 12/08/23 17:12 Freq: Status: Active Protocol: Document 02/09/24 13:30 AB (Rec: 02/09/24 15:04 AB [id number]) Gym Equipment Shuttle Balance chains red Details stagger stance, mini squat and 4's Comments with visual scanning and head turns. Therapeutic Exercises Supine Exercises modified restorative pose with breathing from diaphragm Supine Exercise Name LE's elevated 90/90 verbal cues for breathing from diaphragm Reps/Minutes x2 minutes Sidelying Exercises reverse clamshell Side bilateral Reps/Minutes 12x clamshell Side bilateral Reps/Minutes 12x Sitting Exercises piriformis stretch Side bilateral Reps/Minutes 60 seconds X 2 figure 4 stretch Side left Reps/Minutes 60 seconds X 2 Standing Exercises Warror pose Side bilateral Reps/Minutes X2 each side holding for 5 breaths Comments verbal cues for UE and LE positioning Other Exercises cat cow Equipment Used x5 Comments Verbal cues for breathing child's pose Reps/Minutes X3 Comments verbal cues to breath from diaphragm Neuro Re-Education Treatment Balance Activities therabands Details stagger stance and SLS Comments CGA with visual scanning and head turns step up taps Details hands above parallel bars tandem stepping Reps/Duration 10 ft X 6 Comments CGA, hands above parallel bars Self-Care/Home Management Treatment Education Other Education Patient advised to avoid Cobra , upward facing dog. Patient advised she has been doing figure 4 seated in clinic and advised to to add lizard pose at this time. PT-OP-T Assessment and Plan Start: 12/08/23 17:12 Freq: Status: Active Protocol: Document 02/09/24 13:30 AB (Rec: 02/09/24 15:04 AB [id number]) Physical Therapy Assessment Goals Four Impairment balance dysfunction with high risk for falls Hospital Coder Goal (LTG) Improve functional balance as evidenced by Florence balance score in the low fall risk range (unable to complete test due to activity intolerance today) 01/18/2024: Patient scored 51/ 56 Florence balance scale LTG Duration 03/10/24 Three Impairment activity intolerance Short Term Goal (STG) Patient will be able to ambulate for at least 5 min without need for a rest break 01/18/2024: Patient reports she tolerates a 5-10 minute stroll prior to requiring a rest break, but is not able to ambulate at the pace she was able to previously. STG Duration 01/20/24 Hospital Coder Goal (LTG) Patient will be able to walk for at least 15 min without rest break to allow for short distance community mobility LTG Duration 03/10/24 Two Impairment gait dysfunction Impairment patient requires the use of a cane for gait Hospital Coder Goal (LTG) Patient able to ambulate on level surfaces and stairs without assistive device with no evidence for imbalance 01/18/2024 Patient ambulates into [employer] device, reports having episodes of feeling unsteady, but denies having any falls. LTG Duration 03/10/24 One Impairment weakness Short Term Goal (STG) Patient to be instructed in HEP for strengthening cindy UE's and LE's STG Duration 01/20/24 Hospital Coder Goal (LTG) Patient to be independent and compliant with HEP and demonstrate improvement in strength to at least 4+/5 throughout 01/18/2024 Patient reports she had a stomach bug last week hand as not performed HEP since last Thursday (01/12/2024) B hip flex3+/5 B DF 5/5, Quad 4+/5 right 5/5 left, Glute med B 3+/5 Glute max 3+/5, HS L 3+/5 R 4+/5, B LT 3-/5, B MT 3+/5 LTG Duration 03/10/24 Assessment Summary Assessment BP start of session left UE seated 109/80 HR 110. Seated BP post exercises and prior to balance training left UE 113/ 80 HR 99 BPM end of session 109/76 HR 100 BPM left UE seated. Patient into session with reports of feeling fatigue, but was able to perform balance, strengthening , stretching and go over some of the yoga poses she requested trials. Physical Therapy Plan Frequency and Duration Frequency of Treatment 2x/Week Duration of treatment (weeks) 12 Plan of Care Start Date 12/09/23 Plan of Care End Date 03/10/24 Next Visit Focus/Plan Next Note Type Treatment Note Next Visit Plan Progress as tolerated.
--- NOTE | 2024-02-24 10:10 | PT-OP ANOTE ---
No show. Phoned patient, but unable to leave message due to mailbox full.
--- NOTE | 2024-03-01 16:15 | PT-OP ANOTE ---
Patient came to PT appt but reported not feeling well, continues to have issues with high heart rate, difficulty catching her breath, poor activity tolerance. Sees her doctor again on . BP 124/88, HR 111. Patient agreeable to being put on hold for PT for 2 weeks, today's visit cancelled by PT.
--- NOTE | 2024-03-08 16:41 | PT.OTN ---
Current Diagnoses Cerebral infarction, unspecified (03/08/24) Fibromyalgia (03/08/24) Physical Therapy Treatment Note PT-OP-A Visit Information Start: 12/08/23 17:12 Freq: Status: Active Protocol: Document 03/08/24 16:30 SAK (Rec: 03/08/24 16:41 SAK [id number]) Out-Patient Physical Therapy Visit Information Visit Information Visit Type Treatment Note Visit Start Time 11:15 Visit Stop Time 11:55 Visit Number 14 PT-OP-B Current Condition Start: 12/08/23 17:12 Freq: Status: Active Protocol: Document 01/06/24 08:10 SAK (Rec: 01/06/24 09:03 SAK [id number]) Current Condition History of Current Condition Onset Date 11/06/23 Current Complaints weakness and difficulty walking History of Current Condition Had episode of dizziness and inability to walk or talk. Also reports some difficulty with swallowing. More weakness left side. Had dizziness and inability to walk or talk while at basketball game, had to be helped down from the stands. Initially thought TIA and tachycardia. Prior episodes of brain fog and discoordination. Has ungnosed POTS. Histoery of fibromyalgia, seeing specialist 01/15/24. Sees neurologist 12/11/23, superintendent institution 12/29/23. 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 Sees chiropractor. History plantar fascitis hypothyroidism and Russel's disorder. Inconsistently taking BP and HR at home due to chaos at home. Very limited activity level at this time. Constant MICHEL. Difficulty filling out paperwork due to brain fog. Dizziness today when looking down at papererwork or durng mobility. HIstory of ear tubes. Prior Treatments and Tests inpatient CT no acute intracranial abnormality PT-OP-C Subjective Start: 12/08/23 17:12 Freq: Status: Active Protocol: Document 02/09/24 13:30 AB (Rec: 02/09/24 15:04 AB [id number]) OP-PT Subjective Patient Comments Patient Comments Patient reports she is not sleeping, migranes are worse. Patient reports she was doing some light dusting and vacuuming and felt fuzzy, heart was pounding, felt throat was being squeezed, went pale, almost passed out. Patient reports she has done her ex less, feels like with wind has been knocked out of her. Also had swallow test, chiropractor Thursday, Acupunture earlier today. Patient into session with a handout of Yoga poses she would like to try. Patient reports superventrical tachycardia showed up on the Zio test/patch. Pt late, but able to accomodate. PT-OP-D Balance Start: 12/08/23 17:12 Freq: Status: Active Protocol: Document 12/09/23 08:09 SAK (Rec: 12/10/23 17:28 SAK [id number]) OP-PT Balance Assessment Sitting Balance Static Sitting Balance Ability Normal Dynamic Sitting Balance Ability Good Standing Balance Static Standing Balance Ability Fair Dynamic Standing Balance Ability Poor Device Used SPC Balance Tests Other Other Balance Tests Performed Unable to perform due to patient activity intolerance [place] Fall Scale Copyright Permission PT-OP-E Functional Tests Start: 12/08/23 17:12 Freq: Status: Active Protocol: Document 01/18/24 08:08 AB (Rec: 01/18/24 09:24 AB [id number]) Functional Tests Other [place] balance scale Name of Test [place] balance scale Score 51/56 Comment Independent PT-OP-G Mobility & Gait Start: 12/08/23 17:12 Freq: Status: Active Protocol: Document 12/09/23 08:09 SAK (Rec: 12/10/23 17:28 SAK [id number]) OP Mobility Evaluation Bed Mobility Rolling not done due to dizziness, poor activity tolerance Transfers Sit to Stand able to perform without UE assist but with pressure of legs against chair Bed to Chair Transfers mod use of UE's OP Gait Assessment Gait Gait Assistance Required: Independent Assistive Devices Assistive Device Straight Cane Gait Deviations General Gait Pattern Decreased Stride Length, Decreased Feet Clearance Factors Limiting Gait Function Factors Limiting Gait Function Decreased Activity Tolerance, Decreased Strength, Incoordination Comments Gait Comments dizziness Stair Climbing Evaluation Comments Stair Climbing Comments unable to assess due to activity intolerance PT-OP-H Neuro Start: 12/08/23 17:12 Freq: Status: Active Protocol: Document 12/09/23 08:09 SAK (Rec: 12/10/23 17:28 SAK [id number]) Sensation Evaluation Gross Sensation Gross Sensation Left LE Impaired,Right LE Impaired Coordination Evaluation Upper Extremity Tests Right Alternate Nose to Finger Test Moderate Impairment Left Alternate Nose to Finger Test Moderate Impairment Lower Extremity Tests Right Foot Tapping Test Moderate Impairment Left Foot Tapping Test Moderate Impairment Vital Signs Pulse 1 Pulse Assessment Method Palpation PT-OP-Q Treatments Start: 12/08/23 17:12 Freq: Status: Active Protocol: Document 02/09/24 13:30 AB (Rec: 02/09/24 15:04 AB [id number]) Gym Equipment Shuttle Balance chains red Details stagger stance, mini squat and 4's Comments with visual scanning and head turns. Therapeutic Exercises Supine Exercises modified restorative pose with breathing from diaphragm Supine Exercise Name LE's elevated 90/90 verbal cues for breathing from diaphragm Reps/Minutes x2 minutes Sidelying Exercises reverse clamshell Side bilateral Reps/Minutes 12x clamshell Side bilateral Reps/Minutes 12x Sitting Exercises piriformis stretch Side bilateral Reps/Minutes 60 seconds X 2 figure 4 stretch Side left Reps/Minutes 60 seconds X 2 Standing Exercises [place] pose Side bilateral Reps/Minutes X2 each side holding for 5 breaths Comments verbal cues for UE and LE positioning Other Exercises cat cow Equipment Used x5 Comments Verbal cues for breathing child's pose Reps/Minutes X3 Comments verbal cues to breath from diaphragm Neuro Re-Education Treatment Balance Activities therabands Details stagger stance and SLS Comments CGA with visual scanning and head turns step up taps Details hands above parallel bars tandem stepping Reps/Duration 10 ft X 6 Comments CGA, hands above parallel bars Self-Care/Home Management Treatment Education Other Education Patient advised to avoid Cobra , upward facing dog. Patient advised she has been doing figure 4 seated in clinic and advised to to add lizard pose at this time. PT-OP-T Assessment and Plan Start: 12/08/23 17:12 Freq: Status: Active Protocol: Document 03/08/24 16:30 SAK (Rec: 03/08/24 16:41 SAK [id number]) Physical Therapy Assessment Goals Four Impairment balance dysfunction with high risk for falls Snf Goal (LTG) Improve functional balance as evidenced by Florence balance score in the low fall risk range (unable to complete test due to activity intolerance today) 01/18/2024: Patient scored 51/ 56 Florence balance scale 03/08/24: Florence balance score 49 /56 with decline in SLS and tandem stand. LTG Duration 06/08/24 Three Impairment activity intolerance Short Term Goal (STG) Patient will be able to ambulate for at least 5 min without need for a rest break 01/18/2024: Patient reports she tolerates a 5-10 minute stroll prior to requiring a rest break, but is not able to ambulate at the pace she was able to previously. 03/08/24: goal met at able to complete 6 min walk test STG Duration goal met [employer] Manager Goal (LTG) Patient will be able to walk for at least 15 min without rest break to allow for short distance community mobility 03/08/24: fatigued after 6 min walk test today LTG Duration 03/10/24 Two Impairment gait dysfunction Impairment patient requires the use of a cane for gait Snf Goal (LTG) Patient able to ambulate on level surfaces and stairs without assistive device with no evidence for imbalance 01/18/2024 Patient ambulates into AccuRev device, reports having episodes of feeling unsteady, but denies having any falls. 03/08/24: ambulating without device, but off kilter per her report and PT noting some instability though no LOB requiring PT assist. LTG Duration 06/10/24 One Impairment weakness Short Term Goal (STG) Patient to be instructed in HEP for strengthening cindy UE's and LE's 03/08/24: goal met STG Duration goal met Snf Goal (LTG) Patient to be independent and compliant with HEP and demonstrate improvement in strength to at least 4+/5 throughout 01/18/2024 Patient reports she had a stomach bug last week hand as not performed HEP since last Thursday (01/12/2024) B hip flex3+/5 B DF 5/5, Quad 4+/5 right 5/5 left, Glute med B 3+/5 Glute max 3+/5, HS L 3+/5 R 4+/5, B LT 3-/5, B MT 3+/5 03/08/24: too fatigued for MMT after balance and 6 min walk testing LTG Duration 06/10/24 Progress Towards Goals Progress Towards Goals Progressing Toward Goals Assessment Summary Assessment BP start of session 124/91, pulse 84. After 6 min walk test BP 121/90, pulse 101, 02 sats 98%. Patient reports felt good to do more today but also knows she will be very fatigued. No LOB during gait today. Ambulates with excess inversion left foot. Patient has made some progress toward PT goals but medical issues have made that progress slow and variable. Would benefit from further PT to continue to progress her ther ex and functional mobility activities safely while monitoring vital signs and signs and symptoms. Physical Therapy Plan Frequency and Duration Frequency of Treatment 1x/Week Duration of treatment (weeks) 12 Plan of Care Start Date 03/08/24 Plan of Care End Date 06/08/24 Therapeutic Interventions Therapeutic Interventions Balance Training,Gait Training ,Home Exercise Program,Manual Therapy,Neuromuscular Re- education,Patient/Caregiver Education,Self-Care/Home Management,Taping,Therapeutic Activities,Therapeutic Exercises Modalities Cold Pack/Ice Massage,Electric Stimulation,Hot Packs Next Visit Focus/Plan Next Note Type Treatment Note Next Visit Plan Continue gentle progression of ther ex, gait training, balance training. Monitor vital signs and patient symptoms of dizziness, weakness, or instability
--- NOTE | 2024-03-08 16:46 | PT.OTRE ---
Current Diagnoses Cerebral infarction, unspecified (03/08/24) Fibromyalgia (03/08/24) Past Medical History (Last Updated 02/18/24 @ 11:52 by Abelardo Bustamante MD) Chicken pox Chronic back pain Chronic headaches Chronic neck pain Esophageal dysmotility Hearing decreased Heart palpitations Hyperlipidemia Hypothyroidism Measles Mumps Vitamin D deficiency Surgical History (Last Reviewed 02/12/24 @ 14:47 by Jeanie Wick DO) Anesthesia History of tonsillectomy Visit Care Team Role Provider Type Abelardo Bustamante MD Family Provider Physician Primary Care Provider Specialty: Family Practice Address: [address] [place] [address], [facility] Email: [email or web address] Christa Perez PA-C Attending Provider Advanced Felt Hat Mellowing Machine Operator Referring Provider Specialty: Medical Address: [address] [place] [address], [address], [place], [facility] Email: [email or web address] Physical Therapy Re-Evaluation PT-OP-A Visit Information Start: 12/08/23 17:12 Freq: Status: Active Protocol: Document 03/08/24 16:30 SAK (Rec: 03/08/24 16:41 [facility] [id number]) Out-Patient Physical Therapy Visit Information Visit Information Visit Type Treatment Note Visit Start Time 11:15 Visit Stop Time 11:55 Visit Number 14 PT-OP-B Current Condition Start: 12/08/23 17:12 Freq: Status: Active Protocol: Document 03/08/24 16:30 SAK (Rec: 03/08/24 16:46 [facility] [id number]) Current Condition History of Current Condition Onset Date 11/06/23 Current Complaints weakness and difficulty walking History of Current Condition Had episode of dizziness and inability to walk or talk. Also reports some difficulty with swallowing. More weakness left side. Had dizziness and inability to walk or talk while at basketball game, had to be helped down from the stands. Initially thought TIA and tachycardia. Prior episodes of brain fog and discoordination. Has ungnosed POTS. Histoery of fibromyalgia, seeing specialist 01/15/24. 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 Sees chiropractor. History plantar fascitis hypothyroidism and Russel's disorder. Inconsistently taking BP and HR at home due to chaos at home. Very limited activity level at this time. Constant MICHEL. Difficulty filling out paperwork due to brain fog. Dizziness today when looking down at papererwork or durng mobility. HIstory of ear tubes. Prior Treatments and Tests inpatient CT no acute intracranial abnormality Treatment Goals Patient/Caregiver Goals regain functional independence , PLF. Patient would like to be able to walk on the beach and be able to return to doing all usual activities without excess fatigue. PT-OP-C Subjective Start: 12/08/23 17:12 Freq: Status: Active Protocol: Document 02/09/24 13:30 AB (Rec: 02/09/24 15:04 AB [id number]) OP-PT Subjective Patient Comments Patient Comments Patient reports she is not sleeping, migranes are worse. Patient reports she was doing some light dusting and vacuuming and felt fuzzy, heart was pounding, felt throat was being squeezed, went pale, almost passed out. Patient reports she has done her ex less, feels like with wind has been knocked out of her. Also had swallow test, chiropractor Thursday, Acupunture earlier today. Patient into session with a handout of Yoga poses she would like to try. Patient reports superventrical tachycardia showed up on the Zio test/patch. Pt late, but able to accomodate. PT-OP-D Balance Start: 12/08/23 17:12 Freq: Status: Active Protocol: Document 12/09/23 08:09 [facility] (Rec: 12/10/23 17:28 [facility] [id number]) OP-PT Balance Assessment Sitting Balance Static Sitting Balance Ability Normal Dynamic Sitting Balance Ability Good Standing Balance Static Standing Balance Ability Fair Dynamic Standing Balance Ability Poor Device Used SPC Balance Tests Other Other Balance Tests Performed Unable to perform due to patient activity intolerance Sharmin Fall Scale Copyright Permission Sharmin VALENTINO, Sharmin RM, [place]. Development of a scale to identify the fall- prone patient. Can J Aging 1989;8;366-7. Pranav Finney (2009). Preventing patient falls. (2nd ed). Independence: Maza. PT-OP-E Functional Tests Start: 12/08/23 17:12 Freq: Status: Active Protocol: Document 01/18/24 08:08 AB (Rec: 01/18/24 09:24 AB [id number]) Functional Tests Other Florence balance scale Name of Test Florence balance scale Score 51/56 Comment Independent PT-OP-G Mobility & Gait Start: 12/08/23 17:12 Freq: Status: Active Protocol: Document 12/09/23 08:09 SAK (Rec: 12/10/23 17:28 SAK [id number]) OP Mobility Evaluation Bed Mobility Rolling not done due to dizziness, poor activity tolerance Transfers Sit to Stand able to perform without UE assist but with pressure of legs against chair Bed to Chair Transfers mod use of UE's OP Gait Assessment Gait Gait Assistance Required: Independent Assistive Devices Assistive Device Straight Cane Gait Deviations General Gait Pattern Decreased Stride Length, Decreased Feet Clearance Factors Limiting Gait Function Factors Limiting Gait Function Decreased Activity Tolerance, Decreased Strength, Incoordination Comments Gait Comments dizziness Stair Climbing Evaluation Comments Stair Climbing Comments unable to assess due to activity intolerance PT-OP-H Neuro Start: 12/08/23 17:12 Freq: Status: Active Protocol: Document 12/09/23 08:09 SAK (Rec: 12/10/23 17:28 SAK [id number]) Sensation Evaluation Gross Sensation Gross Sensation Left LE Impaired,Right LE Impaired Coordination Evaluation Upper Extremity Tests Right Alternate Nose to Finger Test Moderate Impairment Left Alternate Nose to Finger Test Moderate Impairment Lower Extremity Tests Right Foot Tapping Test Moderate Impairment Left Foot Tapping Test Moderate Impairment Vital Signs Pulse 1 Pulse Assessment Method Palpation PT-OP-Q Treatments Start: 12/08/23 17:12 Freq: Status: Active Protocol: Document 03/08/24 16:30 SAK (Rec: 03/08/24 16:46 SAK [id number]) Therapeutic Exercises Supine Exercises LTR Reps/Minutes 10x Comments gentle figure 4 Side bilateral Reps/Minutes 2x30 SKTC Side bilateral Reps/Minutes 2x30 modified restorative pose with breathing from diaphragm Supine Exercise Name LE's elevated 90/90 verbal cues for breathing from diaphragm Reps/Minutes x2 minutes Gait Training Gait Activity 6 min walk test Device Used none Surface firm Distance/Duration 1059 feet Treatment Focus activity tolerance Comments excess right foot inversion, increased lateral sway but no LOB requiring PT assist Neuro Re-Education Treatment Balance Activities Florence balance testing Comments 49/56 PT-OP-T Assessment and Plan Start: 12/08/23 17:12 Freq: Status: Active Protocol: Document 03/08/24 16:30 JOSE (Rec: 03/08/24 16:41 [facility] [id number]) Physical Therapy Assessment Goals Four Impairment balance dysfunction with high risk for falls Fpc Goal (LTG) Improve functional balance as evidenced by Florence balance score in the low fall risk range (unable to complete test due to activity intolerance today) 01/18/2024: Patient scored 51/ 56 Florence balance scale 03/08/24: Florence balance score 49 /56 with decline in SLS and tandem stand. LTG Duration 06/08/24 Three Impairment activity intolerance Short Term Goal (STG) Patient will be able to ambulate for at least 5 min without need for a rest break 01/18/2024: Patient reports she tolerates a 5-10 minute stroll prior to requiring a rest break, but is not able to ambulate at the pace she was able to previously. 03/08/24: goal met at able to complete 6 min walk test STG Duration goal met Retail Financial Analyst Goal (LTG) Patient will be able to walk for at least 15 min without rest break to allow for short distance community mobility 03/08/24: fatigued after 6 min walk test today LTG Duration 03/10/24 Two Impairment gait dysfunction Impairment patient requires the use of a cane for gait Retail Financial Analyst Goal (LTG) Patient able to ambulate on level surfaces and stairs without assistive device with no evidence for imbalance 01/18/2024 Patient ambulates into [employer] device, reports having episodes of feeling unsteady, but denies having any falls. 03/08/24: ambulating without device, but off kilter per her report and PT noting some instability though no LOB requiring PT assist. LTG Duration 06/10/24 One Impairment weakness Short Term Goal (STG) Patient to be instructed in HEP for strengthening cindy UE's and LE's 03/08/24: goal met STG Duration goal met Retail Financial Analyst Goal (LTG) Patient to be independent and compliant with HEP and demonstrate improvement in strength to at least 4+/5 throughout 01/18/2024 Patient reports she had a stomach bug last week hand as not performed HEP since last Thursday (01/12/2024) B hip flex3+/5 B DF 5/5, Quad 4+/5 right 5/5 left, Glute med B 3+/5 Glute max 3+/5, HS L 3+/5 R 4+/5, B LT 3-/5, B MT 3+/5 03/08/24: too fatigued for MMT after balance and 6 min walk testing LTG Duration 06/10/24 Progress Towards Goals Progress Towards Goals Progressing Toward Goals Assessment Summary Assessment BP start of session 124/91, pulse 84. After 6 min walk test BP 121/90, pulse 101, 02 sats 98%. Patient reports felt good to do more today but also knows she will be very fatigued. No LOB during gait today. Ambulates with excess inversion left foot. Patient has made some progress toward PT goals but medical issues have made that progress slow and variable. Would benefit from further PT to continue to progress her ther ex and functional mobility activities safely while monitoring vital signs and signs and symptoms. Physical Therapy Plan Frequency and Duration Frequency of Treatment 1x/Week Duration of treatment (weeks) 12 Plan of Care Start Date 03/08/24 Plan of Care End Date 06/08/24 Therapeutic Interventions Therapeutic Interventions Balance Training,Gait Training ,Home Exercise Program,Manual Therapy,Neuromuscular Re- education,Patient/Caregiver Education,Self-Care/Home Management,Taping,Therapeutic Activities,Therapeutic Exercises Modalities Cold Pack/Ice Massage,Electric Stimulation,Hot Packs Next Visit Focus/Plan Next Note Type Treatment Note Next Visit Plan Continue gentle progression of ther ex, gait training, balance training. Monitor vital signs and patient symptoms of dizziness, weakness, or instability
--- NOTE | 2024-03-08 16:46 | PT.OPPOC ---
Physical, Occupational & Speech Therapy At [facility] Current Diagnoses Cerebral infarction, unspecified (03/08/24) Fibromyalgia (03/08/24) Visit Care Team Role Provider Type Abelardo Bustamante MD Family Provider Physician Primary Care Provider Specialty: Family Practice Address: [address] [place] [id number] Email: [email or web address] Christa Perez PA-C Attending Provider Advanced Crisis Therapist Referring Provider Specialty: Medical Address: [address] [place] [address], [address], [place], [address] Email: [email or web address] Plan Of Care PT-OP-T Assessment and Plan Start: 12/08/23 17:12 Freq: Status: Active Protocol: Document 03/08/24 16:30 SAK (Rec: 03/08/24 16:41 SAK [id number]) Physical Therapy Assessment Goals Four Impairment balance dysfunction with high risk for falls Fdc Goal (LTG) Improve functional balance as evidenced by Florence balance score in the low fall risk range (unable to complete test due to activity intolerance today) 01/18/2024: Patient scored 51/ 56 Florence balance scale 03/08/24: Florence balance score 49 /56 with decline in SLS and tandem stand. LTG Duration 06/08/24 Three Impairment activity intolerance Short Term Goal (STG) Patient will be able to ambulate for at least 5 min without need for a rest break 01/18/2024: Patient reports she tolerates a 5-10 minute stroll prior to requiring a rest break, but is not able to ambulate at the pace she was able to previously. 03/08/24: goal met at able to complete 6 min walk test STG Duration goal met Fdc Goal (LTG) Patient will be able to walk for at least 15 min without rest break to allow for short distance community mobility 03/08/24: fatigued after 6 min walk test today LTG Duration 03/10/24 Two Impairment gait dysfunction Impairment patient requires the use of a cane for gait Fdc Goal (LTG) Patient able to ambulate on level surfaces and stairs without assistive device with no evidence for imbalance 01/18/2024 Patient ambulates into [employer] device, reports having episodes of feeling unsteady, but denies having any falls. 03/08/24: ambulating without device, but off kilter per her report and PT noting some instability though no LOB requiring PT assist. LTG Duration 06/10/24 One Impairment weakness Short Term Goal (STG) Patient to be instructed in HEP for strengthening cindy UE's and LE's 03/08/24: goal met STG Duration goal met Window Glazier Goal (LTG) Patient to be independent and compliant with HEP and demonstrate improvement in strength to at least 4+/5 throughout 01/18/2024 Patient reports she had a stomach bug last week hand as not performed HEP since last Thursday (01/12/2024) B hip flex3+/5 B DF 5/5, Quad 4+/5 right 5/5 left, Glute med B 3+/5 Glute max 3+/5, HS L 3+/5 R 4+/5, B LT 3-/5, B MT 3+/5 03/08/24: too fatigued for MMT after balance and 6 min walk testing LTG Duration 06/10/24 Progress Towards Goals Progress Towards Goals Progressing Toward Goals Assessment Summary Assessment BP start of session 124/91, pulse 84. After 6 min walk test BP 121/90, pulse 101, 02 sats 98%. Patient reports felt good to do more today but also knows she will be very fatigued. No LOB during gait today. Ambulates with excess inversion left foot. Patient has made some progress toward PT goals but medical issues have made that progress slow and variable. Would benefit from further PT to continue to progress her ther ex and functional mobility activities safely while monitoring vital signs and signs and symptoms. Physical Therapy Plan Frequency and Duration Frequency of Treatment 1x/Week Duration of treatment (weeks) 12 Plan of Care Start Date 03/08/24 Plan of Care End Date 06/08/24 Therapeutic Interventions Therapeutic Interventions Balance Training,Gait Training ,Home Exercise Program,Manual Therapy,Neuromuscular Re- education,Patient/Caregiver Education,Self-Care/Home Management,Taping,Therapeutic Activities,Therapeutic Exercises Modalities Cold Pack/Ice Massage,Electric Stimulation,Hot Packs Next Visit Focus/Plan Next Note Type Treatment Note Next Visit Plan Continue gentle progression of ther ex, gait training, balance training. Monitor vital signs and patient symptoms of dizziness, weakness, or instability Plan of Care Dates Plan of Care Start Date 03/08/24 Plan of Care End Date 06/08/24 Electronically Signed by: Ofelia Torres, PT 03/08/24 [id number] If you are in agreement with this Plan of Care, please return a signed and dated copy. I have reviewed this Plan of Care and certify that the skilled therapy services above are required to meet the patient?s needs. Physician Signature Date Printed Name and Credentials Clinical Instructor Signature Printed Name and Credentials
--- NOTE | 2024-03-15 12:17 | PT.OTN ---
Current Diagnoses Cerebral infarction, unspecified (03/15/24) Fibromyalgia (03/15/24) Physical Therapy Treatment Note PT-OP-A Visit Information Start: 12/08/23 17:12 Freq: Status: Active Protocol: Document 03/15/24 10:37 AB (Rec: 03/15/24 12:16 AB [id number]) Out-Patient Physical Therapy Visit Information Visit Information Visit Type Treatment Note Visit Note [email or web address]/ Access code Patient late: Visit Start Time 10:37 Visit Stop Time 11:14 Visit Number 15 Number of LIQUOR ESTABLISHMENT MANAGER Visits 1 Evaluation Information Evaluation Date 12/09/23 Precautions Precautions history fibromyalgia, TIA PT-OP-B Current Condition Start: 12/08/23 17:12 Freq: Status: Active Protocol: Document 03/08/24 16:30 SAK (Rec: 03/08/24 16:46 SAK [id number]) Current Condition History of Current Condition Onset Date 11/06/23 Current Complaints weakness and difficulty walking History of Current Condition Had episode of dizziness and inability to walk or talk. Also reports some difficulty with swallowing. More weakness left side. Had dizziness and inability to walk or talk while at basketball game, had to be helped down from the stands. Initially thought TIA and tachycardia. Prior episodes of brain fog and discoordination. Has ungnosed POTS. Histoery of fibromyalgia, seeing specialist 01/15/24. 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 Sees chiropractor. History plantar fascitis hypothyroidism and Russel's disorder. Inconsistently taking BP and HR at home due to chaos at home. Very limited activity level at this time. Constant MICHEL. Difficulty filling out paperwork due to brain fog. Dizziness today when looking down at papererwork or durng mobility. HIstory of ear tubes. Prior Treatments and Tests inpatient CT no acute intracranial abnormality Treatment Goals Patient/Caregiver Goals regain functional independence , PLF. Patient would like to be able to walk on the beach and be able to return to doing all usual activities without excess fatigue. PT-OP-C Subjective Start: 12/08/23 17:12 Freq: Status: Active Protocol: Document 03/15/24 10:37 AB (Rec: 03/15/24 12:16 AB [id number]) OP-PT Subjective Patient Comments Patient Comments Patient reports her thyroid meds are being adjusted she went hyper and now meds are being adjusted again. Delfina reports she had Xrays last Thursday on the back and cervical area and an MRI Cervical area and back, and is trying to get the records sent to [facility]. BP seated left UE 108/77 HR 91 BPM PT-OP-D Balance Start: 12/08/23 17:12 Freq: Status: Active Protocol: Document 12/09/23 08:09 SAK (Rec: 12/10/23 17:28 SAK [id number]) OP-PT Balance Assessment Sitting Balance Static Sitting Balance Ability Normal Dynamic Sitting Balance Ability Good Standing Balance Static Standing Balance Ability Fair Dynamic Standing Balance Ability Poor Device Used SPC Balance Tests Other Other Balance Tests Performed Unable to perform due to patient activity intolerance Finney Fall Scale Copyright Permission PT-OP-E Functional Tests Start: 12/08/23 17:12 Freq: Status: Active Protocol: Document 01/18/24 08:08 AB (Rec: 01/18/24 09:24 AB [id number]) Functional Tests Other Florence balance scale Name of Test Florence balance scale Score 51/56 Comment Independent PT-OP-G Mobility & Gait Start: 12/08/23 17:12 Freq: Status: Active Protocol: Document 12/09/23 08:09 SAK (Rec: 12/10/23 17:28 SAK [id number]) OP Mobility Evaluation Bed Mobility Rolling not done due to dizziness, poor activity tolerance Transfers Sit to Stand able to perform without UE assist but with pressure of legs against chair Bed to Chair Transfers mod use of UE's OP Gait Assessment Gait Gait Assistance Required: Independent Assistive Devices Assistive Device Straight Cane Gait Deviations General Gait Pattern Decreased Stride Length, Decreased Feet Clearance Factors Limiting Gait Function Factors Limiting Gait Function Decreased Activity Tolerance, Decreased Strength, Incoordination Comments Gait Comments dizziness Stair Climbing Evaluation Comments Stair Climbing Comments unable to assess due to activity intolerance PT-OP-H Neuro Start: 12/08/23 17:12 Freq: Status: Active Protocol: Document 12/09/23 08:09 SAK (Rec: 12/10/23 17:28 SAK [id number]) Sensation Evaluation Gross Sensation Gross Sensation Left LE Impaired,Right LE Impaired Coordination Evaluation Upper Extremity Tests Right Alternate Nose to Finger Test Moderate Impairment Left Alternate Nose to Finger Test Moderate Impairment Lower Extremity Tests Right Foot Tapping Test Moderate Impairment Left Foot Tapping Test Moderate Impairment Vital Signs Pulse 1 Pulse Assessment Method Palpation PT-OP-Q Treatments Start: 12/08/23 17:12 Freq: Status: Active Protocol: Document 03/15/24 10:37 AB (Rec: 03/15/24 12:16 AB [id number]) Gym Equipment Shuttle Balance chains red Details stagger stance, mini squat and 4's Reps/Duration 4 min Comments with visual scanning and head turns. Therapeutic Exercises Sitting Exercises piriformis stretch Side bilateral Reps/Minutes 60 seconds X 1 figure 4 stretch Side bilateral Reps/Minutes 60 seconds X 1 seated hip abd with band Side bilateral Resistance level 3 light green band Reps/Minutes X15 without hold,one minute hold X1 Comments Verbal cues for breathing post Standing Exercises squats Side bilateral Resistance level 3 green band Reps/Minutes 2X12 Comments post squats BP 109/75 HR 88 left UE seated Neuro Re-Education Treatment Balance Activities step ups Details hands above bars CGA Equipment 4 inch step with therapad on top Reps/Duration X10 each LE hurdles Details hands above bars CGA Reps/Duration X4 hurdles X 6 step up taps Details hands above parallel bars Equipment 6 inch step Reps/Duration X10 Comments CGA tandem stepping Details with visual scanning, head turns and counting back from 100 by 3s Reps/Duration 10 ft X 6 Comments CGA, hands above parallel bars PT-OP-T Assessment and Plan Start: 12/08/23 17:12 Freq: Status: Active Protocol: Document 03/15/24 10:37 AB (Rec: 03/15/24 12:16 AB [id number]) Physical Therapy Assessment Goals Four Impairment balance dysfunction with high risk for falls Snf Goal (LTG) Improve functional balance as evidenced by Florence balance score in the low fall risk range (unable to complete test due to activity intolerance today) 01/18/2024: Patient scored 51/ 56 Florence balance scale 03/08/24: Florence balance score 49 /56 with decline in SLS and tandem stand. LTG Duration 06/08/24 Three Impairment activity intolerance Short Term Goal (STG) Patient will be able to ambulate for at least 5 min without need for a rest break 01/18/2024: Patient reports she tolerates a 5-10 minute stroll prior to requiring a rest break, but is not able to ambulate at the pace she was able to previously. 03/08/24: goal met at able to complete 6 min walk test STG Duration goal met Snf Goal (LTG) Patient will be able to walk for at least 15 min without rest break to allow for short distance community mobility 03/08/24: fatigued after 6 min walk test today LTG Duration 03/10/24 Two Impairment gait dysfunction Impairment patient requires the use of a cane for gait Snf Goal (LTG) Patient able to ambulate on level surfaces and stairs without assistive device with no evidence for imbalance 01/18/2024 Patient ambulates into [employer] device, reports having episodes of feeling unsteady, but denies having any falls. 03/08/24: ambulating without device, but off kilter per her report and PT noting some instability though no LOB requiring PT assist. LTG Duration 06/10/24 One Impairment weakness Short Term Goal (STG) Patient to be instructed in HEP for strengthening cindy UE's and LE's 03/08/24: goal met STG Duration goal met Health Advisor Goal (LTG) Patient to be independent and compliant with HEP and demonstrate improvement in strength to at least 4+/5 throughout 01/18/2024 Patient reports she had a stomach bug last week hand as not performed HEP since last Thursday (01/12/2024) B hip flex3+/5 B DF 5/5, Quad 4+/5 right 5/5 left, Glute med B 3+/5 Glute max 3+/5, HS L 3+/5 R 4+/5, B LT 3-/5, B MT 3+/5 03/08/24: too fatigued for MMT after balance and 6 min walk testing LTG Duration 06/10/24 Assessment Summary Assessment BP end of session seated left UE 110/75 HR 86 BPM end of session. Patient reports having sciatic, knee, foot all joints hurt today which is normal as well as headache that patient reports she always has. Physical Therapy Plan Frequency and Duration Frequency of Treatment 1x/Week Duration of treatment (weeks) 12 Plan of Care Start Date 03/08/24 Plan of Care End Date 06/08/24 Next Visit Focus/Plan Next Note Type Treatment Note Next Visit Plan Continue gentle progression of ther ex, gait training, balance training. Monitor vital signs and patient symptoms of dizziness, weakness, or instability
--- NOTE | 2024-04-05 09:46 | PT.OTN ---
Current Diagnoses Cerebral infarction, unspecified (04/05/24) Fibromyalgia (04/05/24) Physical Therapy Treatment Note PT-OP-A Visit Information Start: 12/08/23 17:12 Freq: Status: Active Protocol: Document 04/05/24 09:03 [facility] (Rec: 04/05/24 09:46 [facility] [id number]) Out-Patient Physical Therapy Visit Information Visit Information Visit Type Treatment Note Visit Note S: still gets tired and exhausted, just started with cognitive beharioral therapist yesterday. Cancelled PT last week due to finger injury, still wearing splint. Activity level remains limited . Still taking baby walks; 5 blocks) BP 99/75, pulse 85 beginning of treatment BP 110/76, pulse 96 after exercise bike. Visit Start Time 09:03 Visit Number 16 Number of DRAW FURNACE TENDER Visits 0 Evaluation Information Evaluation Date 12/09/23 Precautions Precautions history fibromyalgia, TIA PT-OP-B Current Condition Start: 12/08/23 17:12 Freq: Status: Active Protocol: Document 03/08/24 16:30 SAK (Rec: 03/08/24 16:46 [facility] [id number]) Current Condition History of Current Condition Onset Date 11/06/23 Current Complaints weakness and difficulty walking History of Current Condition Had episode of dizziness and inability to walk or talk. Also reports some difficulty with swallowing. More weakness left side. Had dizziness and inability to walk or talk while at basketball game, had to be helped down from the stands. Initially thought TIA and tachycardia. Prior episodes of brain fog and discoordination. Has ungnosed POTS. Histoery of fibromyalgia, seeing specialist 01/15/24. 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 Sees chiropractor. History plantar fascitis hypothyroidism and Russel's disorder. Inconsistently taking BP and HR at home due to chaos at home. Very limited activity level at this time. Constant MICHEL. Difficulty filling out paperwork due to brain fog. Dizziness today when looking down at papererwork or durng mobility. HIstory of ear tubes. Prior Treatments and Tests inpatient CT no acute intracranial abnormality Treatment Goals Patient/Caregiver Goals regain functional independence , PLF. Patient would like to be able to walk on the beach and be able to return to doing all usual activities without excess fatigue. PT-OP-C Subjective Start: 12/08/23 17:12 Freq: Status: Active Protocol: Document 03/15/24 10:37 AB (Rec: 03/15/24 12:16 AB [id number]) OP-PT Subjective Patient Comments Patient Comments Patient reports her thyroid meds are being adjusted she went hyper and now meds are being adjusted again. Delfina reports she had Xrays last Thursday on the back and cervical area and an MRI Cervical area and back, and is trying to get the records sent to [facility]. BP seated left UE 108/77 HR 91 BPM PT-OP-D Balance Start: 12/08/23 17:12 Freq: Status: Active Protocol: Document 12/09/23 08:09 SAK (Rec: 12/10/23 17:28 SAK [id number]) OP-PT Balance Assessment Sitting Balance Static Sitting Balance Ability Normal Dynamic Sitting Balance Ability Good Standing Balance Static Standing Balance Ability Fair Dynamic Standing Balance Ability Poor Device Used SPC Balance Tests Other Other Balance Tests Performed Unable to perform due to patient activity intolerance Finney Fall Scale Copyright Permission PT-OP-E Functional Tests Start: 12/08/23 17:12 Freq: Status: Active Protocol: Document 01/18/24 08:08 AB (Rec: 01/18/24 09:24 AB [id number]) Functional Tests Other Florence balance scale Name of Test Florence balance scale Score 51/56 Comment Independent PT-OP-G Mobility & Gait Start: 12/08/23 17:12 Freq: Status: Active Protocol: Document 12/09/23 08:09 SAK (Rec: 12/10/23 17:28 SAK [id number]) OP Mobility Evaluation Bed Mobility Rolling not done due to dizziness, poor activity tolerance Transfers Sit to Stand able to perform without UE assist but with pressure of legs against chair Bed to Chair Transfers mod use of UE's OP Gait Assessment Gait Gait Assistance Required: Independent Assistive Devices Assistive Device Straight Cane Gait Deviations General Gait Pattern Decreased Stride Length, Decreased Feet Clearance Factors Limiting Gait Function Factors Limiting Gait Function Decreased Activity Tolerance, Decreased Strength, Incoordination Comments Gait Comments dizziness Stair Climbing Evaluation Comments Stair Climbing Comments unable to assess due to activity intolerance PT-OP-H Neuro Start: 12/08/23 17:12 Freq: Status: Active Protocol: Document 12/09/23 08:09 SAK (Rec: 03/21/24 17:28 [facility] [id number]) Sensation Evaluation Gross Sensation Gross Sensation Left LE Impaired,Right LE Impaired Coordination Evaluation Upper Extremity Tests Right Alternate Nose to Finger Test Moderate Impairment Left Alternate Nose to Finger Test Moderate Impairment Lower Extremity Tests Right Foot Tapping Test Moderate Impairment Left Foot Tapping Test Moderate Impairment Vital Signs Pulse 1 Pulse Assessment Method Palpation PT-OP-Q Treatments Start: 12/08/23 17:12 Freq: Status: Active Protocol: Document 04/05/24 09:03 [facility] (Rec: 04/05/24 09:46 [facility] [id number]) Cardio Equipment Bicycle (Upright) Duration (Minutes) 5 Resistance 1 Seat Position 5 Gym Equipment Shuttle Balance chains red Details wide stance with eye gze, stagger stance, side stance, mini squat and 4's Reps/Duration 8 min Comments with visual scanning and head turns. Therapeutic Exercises Sitting Exercises glut set Reps/Minutes 10x5 piriformis stretch Side bilateral Reps/Minutes 60 seconds X 1 figure 4 stretch Side bilateral Reps/Minutes 60 seconds X 1 seated hip abd with band Side bilateral Resistance level 3 light green band Reps/Minutes X15 without hold,one minute hold X1 Comments Verbal cues for breathing post Standing Exercises Lateral stepping Standing Exercise Name Lateral stepping Side bilateral Reps/Minutes L2 TB PT-OP-T Assessment and Plan Start: 12/08/23 17:12 Freq: Status: Active Protocol: Document 04/05/24 09:03 [facility] (Rec: 04/05/24 09:46 [facility] [id number]) Physical Therapy Assessment Goals Four Impairment balance dysfunction with high risk for falls Nursing Home Goal (LTG) Improve functional balance as evidenced by Florence balance score in the low fall risk range (unable to complete test due to activity intolerance today) 01/18/2024: Patient scored 51/ 56 Florence balance scale 03/08/24: Florence balance score 49 /56 with decline in SLS and tandem stand. LTG Duration 06/08/24 Three Impairment activity intolerance Short Term Goal (STG) Patient will be able to ambulate for at least 5 min without need for a rest break 01/18/2024: Patient reports she tolerates a 5-10 minute stroll prior to requiring a rest break, but is not able to ambulate at the pace she was able to previously. 03/08/24: goal met at able to complete 6 min walk test STG Duration goal met Nursing Home Goal (LTG) Patient will be able to walk for at least 15 min without rest break to allow for short distance community mobility 03/08/24: fatigued after 6 min walk test today LTG Duration 03/10/24 Two Impairment gait dysfunction Impairment patient requires the use of a cane for gait Air Brake Adjuster Goal (LTG) Patient able to ambulate on level surfaces and stairs without assistive device with no evidence for imbalance 01/18/2024 Patient ambulates into [employer] device, reports having episodes of feeling unsteady, but denies having any falls. 03/08/24: ambulating without device, but off kilter per her report and PT noting some instability though no LOB requiring PT assist. LTG Duration 06/10/24 One Impairment weakness Short Term Goal (STG) Patient to be instructed in HEP for strengthening cindy UE's and LE's 03/08/24: goal met STG Duration goal met Nursing Home Goal (LTG) Patient to be independent and compliant with HEP and demonstrate improvement in strength to at least 4+/5 throughout 01/18/2024 Patient reports she had a stomach bug last week hand as not performed HEP since last Thursday (01/12/2024) B hip flex3+/5 B DF 5/5, Quad 4+/5 right 5/5 left, Glute med B 3+/5 Glute max 3+/5, HS L 3+/5 R 4+/5, B LT 3-/5, B MT 3+/5 03/08/24: too fatigued for MMT after balance and 6 min walk testing LTG Duration 06/10/24 Progress Towards Goals Progress Towards Goals Progressing Toward Goals Assessment Summary Assessment Able to ride upright exercise bike. Made decision to not ride bike yesterday to store due to fuzziness in her head. Improved activity tolerance , vitals stable. Denied dizziness. Physical Therapy Plan Frequency and Duration Frequency of Treatment 1x/Week Duration of treatment (weeks) 12 Plan of Care Start Date 03/08/24 Plan of Care End Date 06/08/24 Therapeutic Interventions Therapeutic Interventions Balance Training,Gait Training ,Home Exercise Program,Manual Therapy,Neuromuscular Re- education,Patient/Caregiver Education,Self-Care/Home Management,Taping,Therapeutic Activities,Therapeutic Exercises Modalities Cold Pack/Ice Massage,Electric Stimulation,Hot Packs Next Visit Focus/Plan Next Note Type Treatment Note Next Visit Plan Continue gentle progression of ther ex, gait training, balance training. Monitor vital signs and patient symptoms of dizziness, weakness, or instability
--- NOTE | 2024-05-10 15:25 | PT-OP ANOTE ---
called to check on patient, see if she wanted to schedule further PT appointments. Her voicemailbox is full, unable to leave a message.
--- NOTE | 2024-08-08 11:40 | PT.OPDS ---
Current Diagnoses Cerebral infarction, unspecified (04/05/24) Fibromyalgia (04/05/24) Visit Care Team Role Provider Type Abelardo Bustamante MD Family Provider Physician Primary Care Provider Specialty: Family Practice Address: [address] [place] [address], [address] Email: [email or web address] Christa Perez PA-C Attending Provider Advanced [employer] Of [employer] Associate Referring Provider Specialty: Medical Address: [address] [place] [address], [address], [place], [address] Email: [email or web address] Visit Number Visit Number 16 Discharge Summary PT-OP-B Current Condition Start: 12/08/23 17:12 Freq: Status: Active Protocol: Document 03/08/24 16:30 SAK (Rec: 03/08/24 16:46 SAK [id number]) Current Condition History of Current Condition Onset Date 11/06/23 Current Complaints weakness and difficulty walking History of Current Condition Had episode of dizziness and inability to walk or talk. Also reports some difficulty with swallowing. More weakness left side. Had dizziness and inability to walk or talk while at basketball game, had to be helped down from the stands. Initially thought TIA and tachycardia. Prior episodes of brain fog and discoordination. Has ungnosed POTS. Histoery of fibromyalgia, seeing specialist 01/15/24. 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 Sees chiropractor. History plantar fascitis hypothyroidism and Russel's disorder. Inconsistently taking BP and HR at home due to chaos at home. Very limited activity level at this time. Constant MICHEL. Difficulty filling out paperwork due to brain fog. Dizziness today when looking down at papererwork or durng mobility. HIstory of ear tubes. Prior Treatments and Tests inpatient CT no acute intracranial abnormality Treatment Goals Patient/Caregiver Goals regain functional independence , PLF. Patient would like to be able to walk on the beach and be able to return to doing all usual activities without excess fatigue. PT-OP-C Subjective Start: 12/08/23 17:12 Freq: Status: Active Protocol: Document 03/15/24 10:37 AB (Rec: 03/15/24 12:16 AB [id number]) OP-PT Subjective Patient Comments Patient Comments Patient reports her thyroid meds are being adjusted she went hyper and now meds are being adjusted again. Delfina reports she had Xrays last Thursday on the back and cervical area and an MRI Cervical area and back, and is trying to get the records sent to [facility]. BP seated left UE 108/77 HR 91 BPM PT-OP-D Balance Start: 12/08/23 17:12 Freq: Status: Active Protocol: Document 12/09/23 08:09 SAK (Rec: 12/10/23 17:28 SAK [id number]) OP-PT Balance Assessment Sitting Balance Static Sitting Balance Ability Normal Dynamic Sitting Balance Ability Good Standing Balance Static Standing Balance Ability Fair Dynamic Standing Balance Ability Poor Device Used SPC Balance Tests Other Other Balance Tests Performed Unable to perform due to patient activity intolerance Finney Fall Scale Copyright Permission PT-OP-E Functional Tests Start: 12/08/23 17:12 Freq: Status: Active Protocol: Document 01/18/24 08:08 AB (Rec: 01/18/24 09:24 AB [id number]) Functional Tests Other Florence balance scale Name of Test Florence balance scale Score 51/56 Comment Independent PT-OP-G Mobility & Gait Start: 12/08/23 17:12 Freq: Status: Active Protocol: Document 12/09/23 08:09 SAK (Rec: 12/10/23 17:28 SAK [id number]) OP Mobility Evaluation Bed Mobility Rolling not done due to dizziness, poor activity tolerance Transfers Sit to Stand able to perform without UE assist but with pressure of legs against chair Bed to Chair Transfers mod use of UE's OP Gait Assessment Gait Gait Assistance Required: Independent Assistive Devices Assistive Device Straight Cane Gait Deviations General Gait Pattern Decreased Stride Length, Decreased Feet Clearance Factors Limiting Gait Function Factors Limiting Gait Function Decreased Activity Tolerance, Decreased Strength, Incoordination Comments Gait Comments dizziness Stair Climbing Evaluation Comments Stair Climbing Comments unable to assess due to activity intolerance PT-OP-H Neuro Start: 12/08/23 17:12 Freq: Status: Active Protocol: Document 12/09/23 08:09 SAK (Rec: 12/10/23 17:28 SAK [id number]) Sensation Evaluation Gross Sensation Gross Sensation Left LE Impaired,Right LE Impaired Coordination Evaluation Upper Extremity Tests Right Alternate Nose to Finger Test Moderate Impairment Left Alternate Nose to Finger Test Moderate Impairment Lower Extremity Tests Right Foot Tapping Test Moderate Impairment Left Foot Tapping Test Moderate Impairment Vital Signs Pulse 1 Pulse Assessment Method Palpation PT-OP-T Assessment and Plan Start: 12/08/23 17:12 Freq: Status: Active Protocol: Document 08/08/24 11:39 [facility] (Rec: 08/08/24 11:40 [facility] [id number]) Physical Therapy Plan Discharge Physical Therapy Discharge Reasons No Longer Attending PT
== END 2024-08-10 14:38 | disposition home or self-care (01) ==
LOC: PHYS 09:00
PROVIDERS: Family Provider Family Medicine; PCP Family Medicine; Referring Provider Physician Assistant; Visit Provider Physician Assistant
DX: I63.9 Cerebral infarction, unspecified (principal); M79.7 Fibromyalgia
CPT/HCPCS: 97110; 97112; 97116; 97162; 97530; 97535

== ENCOUNTER → 2024-04-11 07:18 | Outpatient (CLI) | payer OTHER, SELFPAY ==
[2023-11-06 02:07] VITALS: BMI 29.7
[2024-04-11 08:47] LABS: Free T3, Triiodothyronine Free 4.03 pg/mL (2.77-5.27); Free T4, Direct Thyroxine 1.15 ng/dL (0.78-2.19)
[2024-04-11 09:01] LABS: Thyroid Stimulating Hormone 6.14 uIU/mL (0.47-4.68)
== END ==
PROVIDERS: Family Provider Family Medicine; PCP Family Medicine; Referring Provider Family Medicine; Visit Provider Family Medicine
DX: R00.2 Palpitations (principal); Z86.79 Personal history of other diseases of the circulatory system; E03.9 Hypothyroidism, unspecified
CPT/HCPCS: 36415; 84439; 84443; 84481

== ENCOUNTER → 2024-05-25 08:05 | Outpatient (CLI) | payer OTHER, SELFPAY ==
[2023-11-06 02:07] VITALS: BMI 29.7
[2024-05-25 09:37] LABS: Free T3, Triiodothyronine Free 3.81 pg/mL (2.77-5.27); Free T4, Direct Thyroxine 1.15 ng/dL (0.78-2.19)
[2024-05-25 09:51] LABS: TSH w/ Reflex to FT4 1.81 uIU/mL (0.47-4.68)
== END ==
PROVIDERS: Family Provider Family Medicine; PCP Family Medicine; Referring Provider Family Medicine; Visit Provider Family Medicine
DX: E03.9 Hypothyroidism, unspecified (principal); E78.2 Mixed hyperlipidemia
CPT/HCPCS: 36415; 84439; 84443; 84481

== ENCOUNTER → 2024-07-29 08:17 | Outpatient (CLI) | payer OTHER, SELFPAY ==
[2023-11-06 02:07] VITALS: BMI 29.7
[2024-07-29 09:01] LABS: Add Manual Diff / Slide Review NO; Basophils Absolute Auto 0 /uL (0-100); Basophils Percent Auto 0.8 % (0-2); Eosinophils Absolute Auto 100 /uL (0-450); Eosinophils Percent Auto 1.1 % (2-4); Hematocrit 43.8 % (36-46); Hemoglobin 14.6 g/dL (12.0-16.0); Lymphocytes Absolute Auto 2500 /uL (1100-4500); Lymphocytes Percent Auto 46.6 % (25-40); Mean Corpuscular HGB Conc 33.3 % (30-36); Mean Corpuscular Hemoglobin 29.7 PG (26-34); Mean Corpuscular Volume 89.1 fL (80-100); Monocytes Absolute Auto 300 /uL (0-900); Neutrophils Absolute Auto 2500 /uL (1500-7000); Neutrophils Percent Auto 46.5 % (50-75); Platelet Count 237 X10^3/uL (150-400); Red Blood Cell Count 4.92 X10^6/uL (4.0-5.2); Red Cell Distribution Width 13.3 % (11.6-14.8); White Blood Cell Count 5.3 X10^3/uL (4.5-11.0)
[2024-07-29 09:11] LABS: Alanine Aminotransferase 26 IU/L (<35); Albumin 4.6 g/dL (3.5-5.0); Albumin Globulin Ratio 1.5 (1.0-2.8); Alkaline Phosphatase 67 U/L (38-126); Aspartate Aminotransferase 29 IU/L (14-36); Bilirubin Total 0.5 mg/dL (0.2-1.3); Blood Urea Nitrogen 13 mg/dL (7-17); Calcium 9.3 mg/dL (8.4-10.2); Carbon Dioxide 28 mmol/L (22-32); Chloride 104 mmol/L (98-107); Cholesterol 231 mg/dL (140-199); Estimated Glomerular Filt Rate > 60 mL/min (>60); Globulin 3.1 g/dL (1.7-4.1); Glucose 91 mg/dL (70-100); HDL Cholesterol 61 mg/dL (40-60); HEMOLYSIS < 15 (0-50); LDL Cholesterol Calculated 150 mg/dL (<100); Potassium 4.2 mmol/L (3.4-5.1); Sodium 140 mmol/L (137-145); Total Protein 7.7 g/dL (6.3-8.2); Triglycerides 99 mg/dL (35-150)
[2024-07-29 09:42] LABS: TSH w/ Reflex to FT4 1.41 uIU/mL (0.47-4.68)
== END ==
PROVIDERS: Family Provider Family Medicine; PCP Family Medicine; Referring Provider Family Medicine; Visit Provider Family Medicine
DX: M79.7 Fibromyalgia (principal); E55.9 Vitamin D deficiency, unspecified; R00.2 Palpitations; E03.9 Hypothyroidism, unspecified; E78.5 Hyperlipidemia, unspecified; Z86.79 Personal history of other diseases of the circulatory system; E78.2 Mixed hyperlipidemia; G43.909 Migraine, unspecified, not intractable, without status migrainosus; R53.82 Chronic fatigue, unspecified
CPT/HCPCS: 36415; 80053; 80061; 83735; 84443; 85025

== ENCOUNTER → 2024-08-25 16:58 | Outpatient (CLI) | payer OTHER, SELFPAY ==
[2023-11-06 02:07] VITALS: BMI 29.7
--- NOTE | 2024-08-25 16:59 | DI.MG.S_ITS ---
BILATERAL DIGITAL SCREENING MAMMOGRAM 3D/2D WITH CAD: 08/25/2024 CLINICAL: Baseline exam. Routine screening. Family history of Breast Cancer. No prior exams were available for comparison. There are scattered areas of fibroglandular density (category b / 25%-50% glandular tissue). Current study was also evaluated with a Computer Aided Detection (CAD) system. No significant masses, calcifications, or other findings are seen in either breast. IMPRESSION: NEGATIVE There is no mammographic evidence of malignancy. A 1 year screening mammogram is recommended. Based on the Tyrer Cuzick model (a risk assessment model) the patient's lifetime risk is 5.1% and her 10 year risk is 1.6%. According to the ACR, ACS, and NCCN guidelines, an annual breast MRI exam along with mammogram is recommended if the patient's lifetime risk is 20% or greater. This exam was interpreted at Station ID: [id number]. NOTE: For mammograms, a report in lay terms will be sent to the patient. Approximately 15% of breast malignancies will not be visualized mammographically. In the management of a palpable breast mass, a negative mammogram must not discourage biopsy of a clinically suspicious lesion. Electronically Signed By: Shad iqbal/bruce:08/26/2024 10:42:06 letter sent: Normal Exam ACR BI-RADS Category 1: Negative
== END ==
PROVIDERS: Family Provider Family Medicine; PCP Family Medicine; Referring Provider Family Medicine; Visit Provider Family Medicine
DX: Z12.31 Encounter for screening mammogram for malignant neoplasm of breast (principal); Z80.3 Family history of malignant neoplasm of breast
CPT/HCPCS: 77063; 77067

== ENCOUNTER 2025-02-24 16:03 | Emergency (ER) | payer OTHER, SELFPAY ==
[2023-11-06 02:07] VITALS: BMI 29.7
[2025-02-24 16:52] VITALS: BP 138/84; PULSE 96; RESP 16; TEMP 37.1; O2SAT 96; BMI 32.3
[2025-02-24 17:06] LABS: Appearance Urine UA CLEAR; Bilirubin Urine UA NEGATIVE (NEGATIVE); Color Urine UA YELLOW; Glucose Urine UA NEGATIVE (Negative); Ketones Urine UA NEGATIVE (NEGATIVE); Leukocyte Esterase Urine UA NEGATIVE (NEGATIVE); Nitrite Urine UA NEGATIVE (Negative); Occult Blood Urine UA 2+ (Negative); Protein Urine UA NEGATIVE (Negative); Specific Gravity Urine UA 1.015 (1.000-1.035); Urobilinogen Urine UA 0.2 E.U./dL (0.2)
[2025-02-24 17:13] LABS: RBC Urine 1-5/HPF (0-5/HPF); Urine Volume 10mL (spun); WBC Urine 0-1/HPF (0-5/HPF)
[2025-02-24 17:14] LABS: Bacteria Urine Occasional (0-1); Culture Indicated Urine Cult Not Indicated; Squamous Epithelial Cell Urine 0-1 /HPF (0-5/HPF)
--- NOTE | 2025-02-24 17:44 | ED.FEMALEGU ---
HPI - Female Genitourinary <Ana Lilia Guzman PA-C - Last Filed: 02/24/25 19:31> General Chief complaint: Vaginal Bleeding Stated complaint: vaginal bleeding Time Seen by Provider: 02/24/25 17:44 History of Present Illness HPI Narrative: Ms. Dalton as a pleasant 54-year-old female with a past medical history of hypothyroidism, hyperlipidemia, chronic pain presents to the emergency department for vaginal bleeding x2 days. Patient is postmenopausal x6 years. Two days ago she had a large surge of clear fluid come out of her vagina this was not associated with any pain or pleasure. When she woke up the following morning she noticed dried dark blood in her bed from her vagina (she sleeps naked). The following day, yesterday, the patient had bright red blood in her underwear. She wore a menstrual pad today and had scant continued bright red blood coming from the vagina. She is describing a burning and itching pain in her vagina and in her suprapubic region. No upper abdominal pain, bowel changes, fevers, chills, chest pain, shortness of breath, flu-like symptoms. She is , however her and her have not been sexually active since November. Related Data Home Medications ?Medication ?Instructions ?Recorded ?Confirmed diltiazem HCl 120 mg tablet 120 mg PO DAILY 02/26/24 11/28/24 Vitamin D PO 08/03/24 11/28/24 magnesium PO 08/03/24 11/28/24 vitamin B complex 1 cap PO DAILY 08/03/24 11/28/24 Previous Rx's ?Medication ?Instructions ?Recorded epinephrine 0.3 mg/0.3 mL 0.3 ml SUBCUT ONCE #2 ea 12/04/23 injection syringe rizatriptan 10 mg tablet (Maxalt) See Rx Instructions PO .COMPLEX 01/01/24 #30 tabs levothyroxine 75 mcg tablet 75 mcg PO DAILY #90 tabs 05/03/24 doxycycline hyclate 100 mg capsule 100 mg PO BID #20 caps 11/28/24 Allergies Allergy/AdvReac Type Severity Reaction Status Date / Time Penicillins (PENICILLINS) Allergy Intermediate Hives Verified 02/24/25 16:57 ibuprofen (IBUPROFEN) Allergy Unknown Verified 02/24/25 16:57 Boswellya AdvReac Intermediate Uncoded 02/24/25 16:57 Review of Systems <Ana Lilia Guzman PA-C - Last Filed: 02/24/25 19:31> Review of Systems ROS Unobtainable: All systems reviewed & are unremarkable except as noted in HPI and below Patient History <Ana Lilia Guzman PA-C - Last Filed: 02/24/25 19:31> Medical History (Updated 02/24/25 @ 20:37 by Chris Hatch MD) Colon cancer screening Fibromyalgia Esophageal dysmotility Vitamin D deficiency Chronic headaches Heart palpitations Chronic neck pain Chronic back pain Hearing decreased Mumps Measles Chicken pox Hypothyroidism Hyperlipidemia Surgical History Anesthesia History of tonsillectomy Family History Father No problems noted. Grandmother Stroke Grandfather History of heart disease Grandmother History of heart disease Cancer Exam <Ana Lilia Guzman PA-C - Last Filed: 02/24/25 19:31> Narrative Exam Narrative: GENERAL: 54 year old patient appears stated age. Well-developed patient, in no acute distress. HEAD: Atraumatic. Normocephalic. NECK: Trachea midline. Cervical ROM intact. CARDIOVASCULAR: Regular rate and rhythm. RESPIRATORY: ?Nonlabored respirations. ?Speaking in clear, full sentences. ?Clear to auscultation. Breath sounds equal bilaterally. No wheezes, rales, or rhonchi. ? GASTROINTESTINAL: Abdomen soft, non-tender, nondistended. : Patient gave verbal consent for pelvic exam. Nurse patient ambassador present. Patient had scant amount of bright red blood present in vaginal vault. She did have tenderness to palpation in the right adnexal region on bimanual examination. No cervical motion tenderness. No abnormal discharge. EXTREMITIES: No edema or joint tenderness. NEURO: AOx3. ?Clear speech. ?Moves all 4 extremities appropriately. SKIN: No rash or erythema of visible areas Initial Vital Signs Initial Vital Signs: Vital Signs Temperature 98.8 F 02/24/25 16:52 Pulse Rate 96 H 02/24/25 16:52 Respiratory Rate 16 02/24/25 16:52 Blood Pressure 138/84 02/24/25 16:52 Pulse Oximetry 96 02/24/25 16:52 Oxygen Delivery Method Room Air 02/24/25 16:52 <Chris Hatch MD - Last Filed: 02/25/25 02:15> Initial Vital Signs Initial Vital Signs: Vital Signs Temperature 98.8 F 02/24/25 16:52 Pulse Rate 96 H 02/24/25 16:52 Respiratory Rate 16 02/24/25 16:52 Blood Pressure 138/84 02/24/25 16:52 Pulse Oximetry 96 02/24/25 16:52 Oxygen Delivery Method Room Air 02/24/25 16:52 Course <Ana Lilia Guzman PA-C - Last Filed: 02/24/25 19:31> Orders Ordered: ED Orders 02/24/25 17:45 CBC Auto Diff [Complete Blood Count AUTO DIFF] Stat CMP [Comprehensive Metabolic Panel] Stat Lipase Stat PT [Prothrombin Time INR] Stat PTT Partial Thromboplastin Andrew Stat 02/24/25 17:57 US pelvic complete Stat 02/24/25 19:00 Chlamydia/Gonoc/Myco Genital Stat Genital Culture Stat Wet Prep Tric BV Omaira Stat Discontinued Medications Acetaminophen (Acetaminophen 325 Mg Tablet) 975 mg PO NOW ONE Stop: 02/24/25 19:44 Last Admin: 02/24/25 19:49 Dose: 975 mg Documented By: AB Vital Signs Vital signs: Vital Signs - 8 hr 02/24/25 20:50 Pulse Rate 82 Respiratory Rate 17 Blood Pressure 136/92 H Pulse Oximetry 97 Oxygen Delivery Method Room Air <Chris Hatch MD - Last Filed: 02/25/25 02:15> Orders Ordered: ED Orders 02/24/25 17:45 CBC Auto Diff [Complete Blood Count AUTO DIFF] Stat CMP [Comprehensive Metabolic Panel] Stat Lipase Stat PT [Prothrombin Time INR] Stat PTT Partial Thromboplastin Andrew Stat 02/24/25 17:57 US pelvic complete Stat 02/24/25 19:00 Chlamydia/Gonoc/Myco Genital Stat Genital Culture Stat Wet Prep Tric BV Omaira Stat Discontinued Medications Acetaminophen (Acetaminophen 325 Mg Tablet) 975 mg PO NOW ONE Stop: 02/24/25 19:44 Last Admin: 02/24/25 19:49 Dose: 975 mg Documented By: AB Vital Signs Vital signs: Vital Signs - 8 hr 02/24/25 20:50 Pulse Rate 82 Respiratory Rate 17 Blood Pressure 136/92 H Pulse Oximetry 97 Oxygen Delivery Method Room Air MDM - Female Genitourinary <Ana Lilia Guzman PA-C - Last Filed: 02/24/25 19:31> Medical Records Attestation: I reviewed the patient's medical records. Lab Data 02/24/25 17:45 02/24/25 17:45 Labs: Lab Results 02/24/25 02/24/25 Range/Units 17:00 17:45 WBC 6.4 (4.5-11.0) X10^3/uL RBC 4.76 (4.0-5.2) X10^6/uL Hgb 14.5 (12.0-16.0) g/dL Hct 43.3 (36-46) % MCV 90.8 (80-100) fL MCH 30.3 (26-34) PG MCHC 33.4 (30-36) % RDW 13.4 (11.6-14.8) % Plt Count 253 (150-400) X10^3/uL Neut % (Auto) 53.7 (50-75) % Lymph % (Auto) 39.0 (25-40) % [place] % (Auto) 5.8 (3-14) % Eos % (Auto) 1.0 L (2-4) % Baso % (Auto) 0.5 (0-2) % Neut # (Auto) 3400 (4807-5153) /uL Lymph # (Auto) 2500 (5349-3264) /uL [place] # (Auto) 400 (0-900) /uL Eos # (Auto) 100 (0-450) /uL Baso # (Auto) 0 (0-100) /uL PT 10.5 (9.4-12.5) SECONDS INR 0.9 (0.9-1.3) APTT 40 H (25.1-36.5) SECONDS Sodium 141 (137-145) mmol/L Potassium 3.6 (3.4-5.1) mmol/L Chloride 104 (98-107) mmol/L Carbon Dioxide 27 (22-32) mmol/L BUN 15 (7-17) mg/dL Creatinine 0.67 (0.52-1.04) mg/dL Estimated GFR > 60 (>60) mL/min BUN/Creatinine Ratio 22.4 H (6-22) Glucose 106 H (70-99) mg/dL Calcium 9.1 (8.4-10.2) mg/dL Total Bilirubin 0.4 (0.2-1.3) mg/dL AST 29 (14-36) IU/L ALT 19 (<35) IU/L Alkaline Phosphatase 62 (38-126) U/L Total Protein 8.3 H (6.3-8.2) g/dL Albumin 4.7 (3.5-5.0) g/dL Globulin 3.6 (1.7-4.1) g/dL Albumin/Globulin Ratio 1.3 (1.0-2.8) Lipase 99 (23-300) U/L Urine Color Yellow Urine Appearance Clear Urine pH 6.0 (4.5-8.0) Ur Specific [place] 1.015 (1.000-1.035) Urine Protein Negative (Negative) Urine Glucose (UA) Negative (Negative) g/dL Urine Ketones Negative (NEGATIVE) Urine Occult Blood 2+ H (Negative) Urine Nitrate Negative (Negative) Urine Bilirubin Negative (NEGATIVE) Urine Urobilinogen 0.2 (0.2) E.U./dL Ur Leukocyte Esterase Negative (NEGATIVE) Urine RBC 1-5/hpf (0-5/HPF) Urine WBC 0-1/hpf (0-5/HPF) Ur Squamous Epith Cells 0-1 /hpf (0-5/HPF) Urine Bacteria Occasional (0-1) (None) Ur Culture Indicated? Cult not indicated Vol Urine Centrifuged 10ml (spun) Urine Test Negative (Negative) MDM Narrative Medical decision making narrative: 54-year-old female with a past medical history of hypothyroidism, hyperlipidemia, chronic pain presents to the emergency department for vaginal bleeding x2 days. Differential diagnosis includes but is not limited to malignancy, endometrial hyperplasia, vaginal trauma, polyp, fibroid, coagulopathy, PID, vaginal infection, vaginal foreign body, etc. On exam patient is in no acute distress, nontoxic appearing, vital signs appropriate. Abdomen is soft and nontender however we will need to proceed with pelvic exam. Given history we will obtain CBC, CMP, coags, pelvic ultrasound, urinalysis, test. She declines need for pain medication. Pelvic exam reveals a scant amount of bright red blood and tenderness to palpation on bimanual examination was prominently on the right-hand side. No abnormal discharge. Labs reveal normal WBC count 6.4, normal hemoglobin 14.5 hematocrit 43.3. Normal PT and INR, slightly prolonged a PTT at 40 seconds. Electrolytes within normal limits, normal renal function. UA without signs of infection. Due to shift change, the patient will be transferred to the main emergency department with vaginal swab results and pelvic ultrasound results pending at this time. Patient is aware that cervical swabs will take few days to result and she will be called if anything is positive. Discussed case with nighttime ED attending. Pt is agreeable to transfer. <Chris Hatch MD - Last Filed: 02/25/25 02:15> Lab Data Labs: Lab Results 02/24/25 02/24/25 Range/Units 17:00 17:45 WBC 6.4 (4.5-11.0) X10^3/uL RBC 4.76 (4.0-5.2) X10^6/uL Hgb 14.5 (12.0-16.0) g/dL Hct 43.3 (36-46) % MCV 90.8 (80-100) fL MCH 30.3 (26-34) PG MCHC 33.4 (30-36) % RDW 13.4 (11.6-14.8) % Plt Count 253 (150-400) X10^3/uL Neut % (Auto) 53.7 (50-75) % Lymph % (Auto) 39.0 (25-40) % [place] % (Auto) 5.8 (3-14) % Eos % (Auto) 1.0 L (2-4) % Baso % (Auto) 0.5 (0-2) % Neut # (Auto) 3400 (9765-1509) /uL Lymph # (Auto) 2500 (5633-1611) /uL [place] # (Auto) 400 (0-900) /uL Eos # (Auto) 100 (0-450) /uL Baso # (Auto) 0 (0-100) /uL PT 10.5 (9.4-12.5) SECONDS INR 0.9 (0.9-1.3) APTT 40 H (25.1-36.5) SECONDS Sodium 141 (137-145) mmol/L Potassium 3.6 (3.4-5.1) mmol/L Chloride 104 (98-107) mmol/L Carbon Dioxide 27 (22-32) mmol/L BUN 15 (7-17) mg/dL Creatinine 0.67 (0.52-1.04) mg/dL Estimated GFR > 60 (>60) mL/min BUN/Creatinine Ratio 22.4 H (6-22) Glucose 106 H (70-99) mg/dL Calcium 9.1 (8.4-10.2) mg/dL Total Bilirubin 0.4 (0.2-1.3) mg/dL AST 29 (14-36) IU/L ALT 19 (<35) IU/L Alkaline Phosphatase 62 (38-126) U/L Total Protein 8.3 H (6.3-8.2) g/dL Albumin 4.7 (3.5-5.0) g/dL Globulin 3.6 (1.7-4.1) g/dL Albumin/Globulin Ratio 1.3 (1.0-2.8) Lipase 99 (23-300) U/L Urine Color Yellow Urine Appearance Clear Urine pH 6.0 (4.5-8.0) Ur Specific [place] 1.015 (1.000-1.035) Urine Protein Negative (Negative) Urine Glucose (UA) Negative (Negative) g/dL Urine Ketones Negative (NEGATIVE) Urine Occult Blood 2+ H (Negative) Urine Nitrate Negative (Negative) Urine Bilirubin Negative (NEGATIVE) Urine Urobilinogen 0.2 (0.2) E.U./dL Ur Leukocyte Esterase Negative (NEGATIVE) Urine RBC 1-5/hpf (0-5/HPF) Urine WBC 0-1/hpf (0-5/HPF) Ur Squamous Epith Cells 0-1 /hpf (0-5/HPF) Urine Bacteria Occasional (0-1) (None) Ur Culture Indicated? Cult not indicated Vol Urine Centrifuged 10ml (spun) Urine Test Negative (Negative) Imaging Data Ultrasound pelvis: Radiologist's Impression: Close Pelvis Ultrasound (Signed) Shad Josue - 02/24/25 Launch?[address] [address] Ultrasound Report Signed Patient: Delfina Dalton MR#: [id number] : 1970 Acct:[id number] Age/Sex: 54 / F Date of Service: 02/24/25 Loc: ED Accession Number: [id number] Procedure: US pelvic complete Ordering Provider: Thomas,Ana Lilia C PA-C PROCEDURE: US PELVIC COMPLETE INDICATIONS: suprapubic/pelvis pain; postmenopausal bleeding TECHNIQUE: Real-time scanning was performed of the pelvic organs, with image documentation. Additional endovaginal scanning was necessary due to incomplete visualization of the adnexal and endometrial structures by transabdominal scanning. COMPARISON: None. FINDINGS: Uterus: Uterus is retroverted and normal in size at 6.8 x 5.5 x 4.1 cm. The myometrium is heterogeneous and contains fibroids. The endometrium measures 6.7 mm combined thickness. Midline posterior intramural fibroid measures 2.3 x 2.1 x 2.4 cm. A left anterior intramural fibroid measures 1.0 x 1.0 x 1.2 cm. Ovaries: The right ovary measures 3.4 x 1.6 x 1.3 cm, with a calculated ovarian volume of 3.6 cc. The left ovary measures 2.7 x 0.9 x 1.2 cm, with a calculated ovarian volume of 1.5 cc. The ovaries have a normal sonographic appearance. <<Less than 12 follicles can be seen in each ovary possible cystic and solid lesion in the right ovary measuring 2.5 x 0.9 x 1.0 cm. Other: No pathologic free abdominal or pelvic fluid. IMPRESSION: 1. Multiple uterine fibroids. 2. Endometrium is thickened to 6.7 cm in the setting of postmenopausal bleeding, consider endometrial biopsy. 3. Possible right ovarian cystic and solid mass, which is not fully characterized. Consider pelvic MRI with and without contrast for further evaluation versus follow-up ultrasound. Approved by: Shad Josue M.D. on 02/24/2025 at 19:39 MDM Narrative Medical decision making narrative: 54-year-old female with a past medical history of hypothyroidism, hyperlipidemia, chronic pain presents to the emergency department for vaginal bleeding x2 days. Differential diagnosis includes but is not limited to malignancy, endometrial hyperplasia, vaginal trauma, polyp, fibroid, coagulopathy, PID, vaginal infection, vaginal foreign body, etc. On exam patient is in no acute distress, nontoxic appearing, vital signs appropriate. Abdomen is soft and nontender however we will need to proceed with pelvic exam. Given history we will obtain CBC, CMP, coags, pelvic ultrasound, urinalysis, test. She declines need for pain medication. Pelvic exam reveals a scant amount of bright red blood and tenderness to palpation on bimanual examination was prominently on the right-hand side. No abnormal discharge. Labs reveal normal WBC count 6.4, normal hemoglobin 14.5 hematocrit 43.3. Normal PT and INR, slightly prolonged a PTT at 40 seconds. Electrolytes within normal limits, normal renal function. UA without signs of infection. Due to shift change, the patient will be transferred to the main emergency department with vaginal swab results and pelvic ultrasound results pending at this time. Patient is aware that cervical swabs will take few days to result and she will be called if anything is positive. Discussed case with nighttime ED attending. Pt is agreeable to transfer. 02/24/25, 1900, [place]. Sign-out from [facility]. 54-year-old female with postmenopausal vaginal bleeding, hemodynamically stable, afebrile, hemoglobin 14.5, normal coagulation studies. Ultrasound pelvis has been ordered. Assumed care. Ultrasound pelvis. Impressions: ?multiple uterine fibroids. Endometrium thickened to 6.7 cm in the setting of postmenopausal bleeding, consider endometrial biopsy. Possible right ovarian cystic and solid mass, which is not fully characterized. Consider a pelvic MRI with and without contrast for further evaluation versus follow up ultrasound.? See radiology report Copy of report provided for patient, further follow up with Gynecology, given clinic contact information. Patient made aware postmenopausal bleeding is not normal and needs further workup, possible endometrial biopsy, also might have further imaging to evaluate for right ovarian mass. Discharge Plan Departure Patient Disposition: Home Clinical Impression: Post-menopause bleeding, Uterine fibroid, Mass of ovary Activity Restrictions/Additional Instructions: Postmenopausal bleeding, normal hemoglobin, normal coagulation studies. Pelvic ultrasound today showed multiple abnormalities. There were multiple uterine fibroids, which in and of itself could cause bleeding. There was also thickening of the endometrium inner lining of the uterus up to 6.7 cm, which is quite thick, which might need endometrial biopsy further evaluation. There was also mentioned of a right ovarian cystic and solid mass, not fully characterize, possible pelvic MRI in follow up might be needed to further evaluate. Follow up with Gynecology, contact information provided. Return earlier to this/nearest emergency department for any change worsening symptoms or any concerns prior Prescriptions: No Action epinephrine 0.3 mg/0.3 mL syringe 0.3 ml SUBCUT ONCE Qty: 2 0RF Rx Instructions: as a single dose; may repeat once diltiazem HCl 120 mg tablet 120 mg PO DAILY levothyroxine 75 mcg tablet 75 mcg PO DAILY Qty: 90 1RF rizatriptan [Maxalt] 10 mg tablet See Rx Instructions PO .COMPLEX Qty: 30 0RF Rx Instructions: take 1 tab at onset of headache; if no relief may repeat 1 tab after at least 2 hrs; max = 3 tabs/24 hr PO magnesium PO vitamin B complex Capsule 1 cap PO DAILY Vitamin D PO doxycycline hyclate 100 mg capsule 100 mg PO BID Qty: 20 1RF Referrals: Abelardo Bustamante MD [Primary Care Provider, Family Practice] Jacqui Seth MD [Physician, ASSET RECOVERY SPECIALIST] Stand Alone Forms: Patient Portal/API, Work Release Note
--- NOTE | 2025-02-24 17:57 | DI.US.S_ITS ---
PROCEDURE: US PELVIC COMPLETE INDICATIONS: suprapubic/pelvis pain; postmenopausal bleeding TECHNIQUE: Real-time scanning was performed of the pelvic organs, with image documentation. Additional endovaginal scanning was necessary due to incomplete visualization of the adnexal and endometrial structures by transabdominal scanning. COMPARISON: None. FINDINGS: Uterus: Uterus is retroverted and normal in size at 6.8 x 5.5 x 4.1 cm. The myometrium is heterogeneous and contains fibroids. The endometrium measures 6.7 mm combined thickness. Midline posterior intramural fibroid measures 2.3 x 2.1 x 2.4 cm. A left anterior intramural fibroid measures 1.0 x 1.0 x 1.2 cm. Ovaries: The right ovary measures 3.4 x 1.6 x 1.3 cm, with a calculated ovarian volume of 3.6 cc. The left ovary measures 2.7 x 0.9 x 1.2 cm, with a calculated ovarian volume of 1.5 cc. The ovaries have a normal sonographic appearance. <<Less than 12 follicles can be seen in each ovary possible cystic and solid lesion in the right ovary measuring 2.5 x 0.9 x 1.0 cm. Other: No pathologic free abdominal or pelvic fluid. IMPRESSION: 1. Multiple uterine fibroids. 2. Endometrium is thickened to 6.7 cm in the setting of postmenopausal bleeding, consider endometrial biopsy. 3. Possible right ovarian cystic and solid mass, which is not fully characterized. Consider pelvic MRI with and without contrast for further evaluation versus follow-up ultrasound. Approved by: Shad Josue M.D. on 02/24/2025 at 19:39
[2025-02-24 18:07] LABS: Add Manual Diff / Slide Review NO; Basophils Absolute Auto 0 /uL (0-100); Basophils Percent Auto 0.5 % (0-2); Eosinophils Absolute Auto 100 /uL (0-450); Hematocrit 43.3 % (36-46); Hemoglobin 14.5 g/dL (12.0-16.0); Lymphocytes Absolute Auto 2500 /uL (1100-4500); Mean Corpuscular HGB Conc 33.4 % (30-36); Mean Corpuscular Hemoglobin 30.3 PG (26-34); Mean Corpuscular Volume 90.8 fL (80-100); Monocytes Absolute Auto 400 /uL (0-900); Monocytes Percent Auto 5.8 % (3-14); Neutrophils Absolute Auto 3400 /uL (1500-7000); Neutrophils Percent Auto 53.7 % (50-75); Platelet Count 253 X10^3/uL (150-400); Red Blood Cell Count 4.76 X10^6/uL (4.0-5.2); Red Cell Distribution Width 13.4 % (11.6-14.8); White Blood Cell Count 6.4 X10^3/uL (4.5-11.0)
[2025-02-24 18:08] LABS: INR 0.9 (0.9-1.3); Prothrombin Time 10.5 SECONDS (9.4-12.5)
[2025-02-24 18:11] LABS: Alanine Aminotransferase 19 IU/L (<35); Albumin 4.7 g/dL (3.5-5.0); Albumin Globulin Ratio 1.3 (1.0-2.8); Alkaline Phosphatase 62 U/L (38-126); Aspartate Aminotransferase 29 IU/L (14-36); BUN Creatinine Ratio 22.4 (6-22); Bilirubin Total 0.4 mg/dL (0.2-1.3); Blood Urea Nitrogen 15 mg/dL (7-17); Calcium 9.1 mg/dL (8.4-10.2); Carbon Dioxide 27 mmol/L (22-32); Chloride 104 mmol/L (98-107); Estimated Glomerular Filt Rate > 60 mL/min (>60); Globulin 3.6 g/dL (1.7-4.1); Glucose 106 mg/dL (70-99); HEMOLYSIS 20 (0-50); Lipase 99 U/L (23-300); PTT Partial Thromboplastin Tim 40 SECONDS (25.1-36.5); Potassium 3.6 mmol/L (3.4-5.1); Sodium 141 mmol/L (137-145); Total Protein 8.3 g/dL (6.3-8.2)
[2025-02-24 18:31] LABS: Pregnancy Test Urine Negative (Negative)
--- NOTE | 2025-02-24 19:13 | PC.NURSE ---
This RN was with Eber Guzman as she performed pelvic assessment. I was positioned at patient shoulders supplying Eber Guzman with Swabs. This RN verified patient name and date of and labeled all specimens and sent them down to the lab. All provider interactions were appropriate as witnessed by this RN.
[2025-02-24] MEDS: ACETAMINOPHEN 325 MG TABLET 975 MG PO (19:49)
[2025-02-24 20:50] VITALS: BP 136/92; PULSE 82; RESP 17; O2SAT 97
[2025-03-01 11:09] LABS: Chlamydia trachomatis Negative (Negative); Mycoplasma genitalium Negative (Negative); Neisseria gonorrhoeae Negative (Negative)
== END 2025-02-24 20:51 | disposition home or self-care (01) ==
PROVIDERS: Family Medicine; Physician Assistant; Emergency Provider Emergency Medicine; Family Provider Family Medicine; PCP Family Medicine
DX: N95.0 Postmenopausal bleeding (principal); D25.9 Leiomyoma of uterus, unspecified; N83.8 Other noninflammatory disorders of ovary, fallopian tube and broad ligament
CPT/HCPCS: 76830; 76856; 80053; 81001; 81025; 83690; 85025; 85610; 85730; 87070; 87205; 87210; 87491; 87563; 87591; 99283; 99284

== ENCOUNTER → 2025-02-28 16:40 | Outpatient (CLI) | payer OTHER, SELFPAY ==
[2023-11-06 02:07] VITALS: BMI 29.7
--- NOTE | 2025-02-28 16:43 | DI.MRI.S_ITS ---
PROCEDURE: MR PELVIS WO/W CON INDICATIONS: abnormal ultrasound TECHNIQUE: Coronal HASTE, sagittal breath-hold T2 FSE; axial T1 FSE with and without fat saturation through the pelvis. Optional long- and short-axis uterine nonbreath-hold T2 FSE through the uterus. Sagittal or axial dynamic VIBE during administration of contrast. Post-contrast axial or coronal VIBE/2-D FLASH with fat saturation from the iliac crests to the symphysis. Optional diffusion weighted imaging and ADC may be performed. COMPARISON: [facility], , US PELVIC COMPLETE, 02/24/2025, 18:16. FINDINGS: Image quality: Excellent. Uterus: Uterus is normal in size. Endometrium measures 3 mm on today's examination. There is an isointense lesion in the mid uterine segment of the endometrium measuring 0.5 x 0.3 cm (series 5, image 7). A couple of FIGO type 4 uterine fibroids are present, including the 1.7 x 2.0 cm mid uterine segment lesion and the subcentimeter fundal lesion (series 21, image 73 and 60). Adnexa: Both ovaries are normal in size, without suspicious cystic or solid lesions. 1.1 cm paraovarian cyst on the right (series 5, image 4). No distinct ovarian mass identified. Urinary system: Bladder wall is normal in thickness. Distal ureters are non distended. Urethra appears normal in morphology. Nodes and vessels: No pelvic or inguinal adenopathy by size criteria. Iliac vessels are normal in size. Bowel and peritoneum: No pathologic free pelvic fluid. Inferior colon and small bowel loops are normal in caliber. Soft tissues: No inguinal hernias. No findings of pelvic floor incompetence in the absence of provocation. Bones: Marrow demonstrates normal overall signal. IMPRESSION: 0.5 x 0.3 cm isointense filling defect within the mid uterine segment . Differential for this process includes small polyp, subserosal fibroid, less likely early malignancy. Tissue sampling should be considered. 1.1 cm right paraovarian cyst. O-RADS 2. No distinct right ovarian mass identified. Dictated by: Lars Kauffman M.D. on 03/02/2025 at 10:12 Approved by: Lars Kauffman M.D. on 03/02/2025 at 10:17
== END ==
PROVIDERS: Family Provider Family Medicine; PCP Family Medicine; Referring Provider Family Medicine; Visit Provider Family Medicine
DX: R93.89 Abnormal findings on diagnostic imaging of other specified body structures (principal); N83.291 Other ovarian cyst, right side; N83.8 Other noninflammatory disorders of ovary, fallopian tube and broad ligament; D25.9 Leiomyoma of uterus, unspecified; N95.0 Postmenopausal bleeding
CPT/HCPCS: 72197; A9579

== ENCOUNTER → 2025-04-14 10:12 | Outpatient (CLI) | payer OTHER, SELFPAY ==
[2023-11-06 02:07] VITALS: BMI 29.7
[2025-04-14 11:06] LABS: Appearance Urine UA CLEAR; Bilirubin Urine UA NEGATIVE (NEGATIVE); Color Urine UA YELLOW; Glucose Urine UA NEGATIVE (Negative); Ketones Urine UA NEGATIVE (NEGATIVE); Leukocyte Esterase Urine UA NEGATIVE (NEGATIVE); Nitrite Urine UA NEGATIVE (Negative); Occult Blood Urine UA NEGATIVE (Negative); Protein Urine UA NEGATIVE (Negative); Specific Gravity Urine UA 1.015 (1.000-1.035); Urobilinogen Urine UA 0.2 E.U./dL (0.2)
[2025-04-14 11:07] LABS: pH Urine UA 6.0 (4.5-8.0)
[2025-04-14 11:12] LABS: Culture Indicated Urine Cult Not Indicated
[2025-04-14 11:12] LABS: Add Manual Diff / Slide Review NO; Hematocrit 44.7 % (36-46); Hemoglobin 15.0 g/dL (12.0-16.0); Lymphocytes Absolute Auto 2500 /uL (1100-4500); Mean Corpuscular HGB Conc 33.6 % (30-36); Mean Corpuscular Hemoglobin 30.3 PG (26-34); Mean Corpuscular Volume 89.9 fL (80-100); Platelet Count 245 X10^3/uL (150-400)
[2025-04-14 11:31] LABS: Alanine Aminotransferase 21 IU/L (<35); Albumin 4.9 g/dL (3.5-5.0); Albumin Globulin Ratio 1.5 (1.0-2.8); Alkaline Phosphatase 66 U/L (38-126); Blood Urea Nitrogen 9 mg/dL (7-17); Calcium 9.5 mg/dL (8.4-10.2); Carbon Dioxide 27 mmol/L (22-32); Chloride 103 mmol/L (98-107); Estimated Glomerular Filt Rate > 60 mL/min (>60); Globulin 3.2 g/dL (1.7-4.1); Glucose 109 mg/dL (70-99); HEMOLYSIS < 15 (0-50); Potassium 4.1 mmol/L (3.4-5.1); Sodium 141 mmol/L (137-145); Total Protein 8.1 g/dL (6.3-8.2)
== END ==
PROVIDERS: Family Provider Family Medicine; PCP Family Medicine; Referring Provider Family Medicine; Visit Provider Family Medicine
DX: R39.15 Urgency of urination (principal); R10.30 Lower abdominal pain, unspecified; R19.5 Other fecal abnormalities
CPT/HCPCS: 36415; 80053; 81001; 85025

== ENCOUNTER → 2025-04-15 09:32 | Outpatient (CLI) | payer OTHER, SELFPAY ==
[2023-11-06 02:07] VITALS: BMI 29.7
== END ==
PROVIDERS: Family Provider Family Medicine; PCP Family Medicine; Referring Provider Family Medicine; Visit Provider Family Medicine
DX: R19.5 Other fecal abnormalities (principal); R10.30 Lower abdominal pain, unspecified; R39.15 Urgency of urination
CPT/HCPCS: 82274; 87177

== ENCOUNTER → 2025-07-14 15:55 | Outpatient (CLI) | payer OTHER, SELFPAY ==
[2023-11-06 02:07] VITALS: BMI 29.7
--- NOTE | 2025-07-14 15:56 | DI.RAD.S_ITS ---
PROCEDURE: XR HIP W PEL IF DONE BILAT 2V INDICATIONS: worsening low back pain, pelvic mass TECHNIQUE: Three views of the hip were acquired. COMPARISON: None. FINDINGS: Bones: There are no osseous abnormalities. SI and hip joints: Normal in width and alignment without arthritic change Soft tissues: No soft tissue swelling, calcification or mass. IMPRESSION: Normal pelvis Dictated by: Noe Stringer M.D. on 07/17/2025 at 12:38 Approved by: Noe Stringer M.D. on 07/17/2025 at 12:38
--- NOTE | 2025-07-14 15:56 | DI.RAD.S_ITS ---
PROCEDURE: XR LUMBAR SPINE 2-3V INDICATIONS: worsening low back pain, pelvic mass TECHNIQUE: 3 views of the lumbar spine were acquired. COMPARISON: None. FINDINGS: Lumbar spine curvature and alignment: Normal. Bones: There are no osseous abnormalities. Disc spaces: Normal in height without significant degeneration. Mild L5-S1 degenerative facet disease Intervertebral foramen: Grossly normal in width. Soft tissues: No soft tissue swelling, calcification or mass. IMPRESSION: Mild L5-S1 degenerative facet disease Dictated by: Noe Stringer M.D. on 07/17/2025 at 12:37 Approved by: Noe Stringer M.D. on 07/17/2025 at 12:38
== END ==
PROVIDERS: Family Provider Family Medicine; PCP Family Medicine; Referring Provider Family Medicine; Visit Provider Family Medicine
DX: M47.817 Spondylosis without myelopathy or radiculopathy, lumbosacral region (principal); M25.559 Pain in unspecified hip; M54.50 Low back pain, unspecified; N94.89 Other specified conditions associated with female genital organs and menstrual cycle; N83.209 Unspecified ovarian cyst, unspecified side; G89.29 Other chronic pain
CPT/HCPCS: 72100; 73521

== ENCOUNTER → 2025-08-05 09:09 | Outpatient (CLI) | payer OTHER, SELFPAY ==
[2023-11-06 02:07] VITALS: BMI 29.7
--- NOTE | 2025-08-05 10:17 | DI.MRI.S_ITS ---
PROCEDURE: MR PELVIS WO/W CON INDICATIONS: worsening low back pain, pelvic mass TECHNIQUE: Coronal HASTE, sagittal breath-hold T2 FSE; axial T1 FSE with and without fat saturation through the pelvis. Optional long- and short-axis uterine nonbreath-hold T2 FSE through the uterus. Sagittal or axial dynamic VIBE during administration of contrast. Post-contrast axial or coronal VIBE/2-D FLASH with fat saturation from the iliac crests to the symphysis. Optional diffusion weighted imaging and ADC may be performed. COMPARISON: [facility], US, US PELVIC COMPLETE, 02/24/2025, 18:16. [facility], MR, MR PELVIS WO/W CON, 02/28/2025, 16:49. FINDINGS: Image quality: Diagnostic Lower abdomen: No bowel obstruction in the lower abdomen. Bladder: Under distended Reproductive organs: There is a similar tiny lesion in the mid endometrium, measuring 0.5 cm. Endometrium is overall nonthickened at 0.3 cm. Junctional zone measures 1 cm also within normal limits. Multiple fibroids are seen, most notably posterior intramural FIGO 4 fibroid measures 2.5 cm. This is similar to prior, when remeasured. Prominent adnexal veins are present bilaterally, greater on the left. 0.7 cm right para ovarian cyst is present. A 1.3 cm low signal region is seen in the right adnexa adjacent to this cyst possibly corresponding to the ultrasound finding. (/12) These are similar Rectum: Unremarkable Vessels and lymph nodes: No enlarged lymph nodes by size criteria. No aneurysmal artery identified Pelvic wall: Unremarkable Bones: No aggressive appearing osseous abnormality. IMPRESSION: Similar tiny lesion within the uterine endometrium measuring about 0.5 cm, differential includes a polyp. 1.3 cm region of low signal is seen adjacent to a 0.7 cm right simple para ovarian cyst, stable. This may represent remnant atrophic ovary and less likely a solid mass. Continued imaging follow-up is reasonable to ensure long-term stability for the above findings. Uterine fibroids are present Prominent adnexal veins, which can be associated with pelvic congestion. For lower back pain, consider dedicated spine MRI if clinically indicated Dictated by: Miller Triana M.D. on 08/06/2025 at 19:50 Approved by: Miller Triana M.D. on 08/07/2025 at 7:33
== END ==
LOC: MRI 09:10
PROVIDERS: Family Provider Family Medicine; PCP Family Medicine; Referring Provider Family Medicine; Visit Provider Family Medicine
DX: N94.89 Other specified conditions associated with female genital organs and menstrual cycle (principal); D25.1 Intramural leiomyoma of uterus; N83.291 Other ovarian cyst, right side
CPT/HCPCS: 72197; A9579

== ENCOUNTER 2025-09-20 14:19 | Emergency (ER) | payer OTHER, SELFPAY ==
[2023-11-06 02:07] VITALS: BMI 29.7
[2025-09-20] VITALS (19 sets, daily range): BP systolic 105–144; BP diastolic 60–95; PULSE 87–115; RESP 15–22; TEMP 37.3; O2SAT 94–99; BMI 32.3
--- OUTSIDE RECORDS SUMMARY | 2025-09-20 14:21 | XMS_ITS | Patient Health Record ---
Author Organization [facility] [address] [address] [place] [address] Care Team Providers Care Show Worker Name Role Phone Grace Chua Unavailable [phone] Chris Bethea Unavailable Unavailable Allergies Allergen (clinical drug ingredient) Drug/Non Drug Allergy documented on EMR Reaction Allergy Type Onset Date Status Metal metal (uncoded) infections Allergy Act yuliana pain killers (uncoded) palpitations Allergy Active [place]wellia anaphylaxis Drug Allergy Activ e Sudafed heart races, faints Drug Allergy Active Bee Sting inflammation, ra sh, throat Allergy Active Penicillin hives Drug Allergy Active Reason For Referral No Information Medications Medication SIG (Take, Route, Frequency, Duration) Notes Start Date End Date Status [place] Thyroid 30 MG 1 tablet Oral daily ; Duration: 30 days Active diazePAM 5 MG 1 tablet as needed O rally Once a day, january; Duration: 1 days 03/14/2024 Active Vitamin D3 25 MCG (1000 UT) 1 tablet Ora lly Once a day Active [place] Thyroid 15 MG 1 tablet Oral daily ; Duration: 90 days Active EPINEPHrine 0.3 MG/0.3ML as directed Injection Active Rizatriptan Benzoate 10 MG 1 tablet Oral ly Once a day Active Magnesium 30 MG 1 tablet with a meal Orally Once a day Active Social History Tobacco Use: Social History Observation Description Date Details (start date - stop date) Former Smoker 12/28/1980 - 12/28/1986 Tobacco Use/Smoking Question Answer Notes Are you a former smoker How long has it been since you last smoked? > 10 years Tobacco Control (Standard) Question Answer Notes Tobacco use: Former smoker When did you start smoking? 12/28/1980 When did you stop smoking? 12/28/1986 How long has it been since you last smoked? [place] ter than 10 years AUDIT-C (Standard) Question Answer Notes Did you have a drink contain ing alcohol in the past year? Yes How often did you have six o r more drinks on one occasion in the past year? Never (0 point) How many drinks did you have on a typical day when you were drinking in the past year? 1 or 2 drinks (0 point) How often did you have a dri nk containing alcohol in the past year? 2 to 4 times a month (2 points) Points 2 Interpretation Negative Problems Problem Type SNOMED Code ICD Code Onset Dates Problem Status W/U Status Risk Notes Problem Adjustment disorder with anxiety (81960706) Adjustment disorder with anxiety (F43.22) Active confirmed Problem Chronic pain syndrome (777189919) Chronic pain syndrome (G89.4) Active confirmed Problem Fibromyalgia (760312993) Fibromyalgia (M79.7) Active confirmed Problem Migraine (11612621) Migraine without status migrainosus, not intractable, unspecified migraine type (G43.909) Active confirmed Problem Degenerative disc disease (32730281) DDD (degenerative disc disease), lumbar (M51.36) Active confirmed Problem Cervical disc disorder (947711442) DDD (degenerative disc disease), cervical (M50.30) Active confirmed Problem Cervical arthritis (495682406) Cervical arthritis (M47.812) Active confirmed Problem Lumbar arthritis (disorder) (811923415) 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) Active confirmed Encounters Encounter Location Date Provider Diagnosis [facility] [address] [place], [place] [id number] 05/03/2025 Grace Chua Plan Of Treatment No Information Insurance Providers Payer Name Payer Address Payer Phone Subscriber Number Group Number Insured Name Patient Relationship to Insured Coverage Start Date Coverage End Date [facility] [address] [address] [place] [address] [id number] Delfina Dalton Self - patient is the insured Medical (General) History Medical History History ICD Code Fibromyalgia Headache Hypothyroidism Hyperlipidemia Heart palpitations Vitamin D deficiency Postural tachycardia syndrome (PoTS) non-helpful meds: ibuprofen, acetaminoph en Surgical History Surgery Date(Month/Year) Tonsillectomy Hospitalization History Reason Date(Month/Year) hospitalized at [facility], potential stroke and tachycardia symptoms, discharged on 11/07/2023 11/05/2023
--- NOTE | 2025-09-20 15:27 | DI.CT.S_ITS ---
PROCEDURE: CT STROKE INDICATIONS: AMS TECHNIQUE: Noncontrast 4.5 mm thick angled axial sections acquired from the foramen magnum to the vertex, with coronal reformats. For radiation dose reduction, the following was used: automated exposure control, adjustment of mA and/or kV according to patient size. COMPARISON: [facility], CT, CT STROKE, 11/05/2023, 21:43. FINDINGS: Image quality: Diagnostic. CSF spaces: Basal cisterns are patent. No extra-axial fluid collections. Ventricles are normal in size and shape. Brain: No midline shift. No intracranial mass effect or hemorrhage. [place] Toro- white matter interface is normal. Skull and face: Calvarium and visualized facial bones are intact, without suspicious lesions. Sinuses: Visualized sinuses and mastoids are clear. IMPRESSION: No acute intracranial pathology. Findings were discussed with the referring provider, Dr. Worrell, by telephone on 09/20/2025 at 3:38 PM. This study fulfills neurological imaging criteria for inclusion or exclusion of acute stroke therapies based on available published neurological imaging guidelines. Approved by: Shad Josue M.D. on 09/20/2025 at 15:39
--- NOTE | 2025-09-20 15:28 | DI.CT.S_ITS ---
PROCEDURE: CT ANGIO HEAD AND NECK INDICATIONS: AMS TECHNIQUE: After the administration of intravenous contrast, 1 mm thick sections acquired from the aortic arch through the [place] of Manjarrez. 3-dimensional frribja-ywryajpks-pdplcuesul (MIP) and/or volume rendering reformats were acquired of the central intracranial vasculature and neck separately. For radiation dose reduction, the following was used: automated exposure control, adjustment of mA and/or kV according to patient size. COMPARISON: [facility], CT, CT ANGIO HEAD AND NECK, 11/05/2023, 21:43. FINDINGS: Image quality: Diagnostic. Cerebral CT Angiogram: Internal carotid arteries: No acute findings. Intracranial ICA are patent with no significant stenosis. No occlusion. No aneurysm. Anterior cerebral arteries: Unremarkable. No significant stenosis. No occlusion. No aneurysm. Middle cerebral arteries: Unremarkable. No significant stenosis. No occlusion. No aneurysm. Posterior cerebral arteries: type origin of the right [employer] EQUIPMENT OPERATOR, a normal anatomic variant. Left [employer]AM[employer] EQUIPMENT OPERATOR is patent.. No significant stenosis. No occlusion. No aneurysm. Basilar artery: Unremarkable. No significant stenosis. No occlusion. No aneurysm. Vertebral arteries: Unremarkable as visualized. Dural venous sinuses: Unremarkable given phase of enhancement. Other: Please see the separately dictated report from the noncontrast CT of the head performed at the same time. No abnormal intracranial arterial-phase enhancement. Neck CT Angiogram: Internal carotid arteries: Unremarkable. No significant stenosis. No dissection or occlusion. Common carotid arteries: Unremarkable. No significant stenosis. No dissection or occlusion. External carotid arteries: Unremarkable. No occlusion. 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 Right vertebral artery arises from the right common carotid artery. No significant stenosis. No dissection or occlusion. 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 No significant diverticulum of chondral. Right vertebral artery arises from the right common carotid artery. Other: Arterial phase soft tissues of the neck and chest are unremarkable. IMPRESSION: No significant intracranial arterial abnormality is seen. No significant abnormality is seen within the arteries of the neck. Any quantitative measurements of stenosis were performed using NASCET criteria. Approved by: Shad Josue M.D. on 09/20/2025 at 15:54
--- NOTE | 2025-09-20 15:38 | ED_ITS ---
HPI - Neuro Symptoms/Deficit General Chief Complaint: Neuro Symptoms/Deficit Stated Complaint: nurse rec, cognitive/balance issues Time Seen by Provider: 09/20/25 15:00 Source: patient Mode of arrival: Family Vehicle History of Present Illness HPI Narrative: Patient is a 55-year-old female who presents to the ER with left-sided weakness, ataxia. Past medical history hastimotos, pots, fibromyalgia, rheumatoid arthritis, hypothyroid. Was ice skating and fell and hit the back of her head on 09/10/2025. She states that she was able to get up, we will did not scaphoid was able to ambulate at home. Over the last few days she has been having increasing ataxia, bumping into things. She denies any recent upper respiratory or viral illnesses, does not eat canned goods, recent vaccinations, no recent vacations in regions with Lyme disease,she is unable to tell me if her paresthesias were ascending or descending. On Anticoagulants: No Related Data Home Medications ?Medication ?Instructions ?Recorded ?Confirmed diltiazem HCl 120 mg tablet 120 mg PO DAILY 02/26/24 1 10/23/24 Previous Rx's ?Medication ?Instructions ?Recorded epinephrine 0.3 mg/0.3 mL 0.3 ml SUBCUT ONCE #2 ea injection syringe levothyroxine 75 mcg tablet 75 mcg PO DAILY #90 tabs 0 03/30/25 Allergies Allergy/AdvReac Type Severity Reaction Status Date / Time Penicillins (PENICILLINS) Allergy Intermediate Hives Verified 09/22/25 15:55 ibuprofen (IBUPROFEN) Allergy Unknown Verified 09/22/25 15:55 Bos[place]ellya AdvReac Intermediate Uncoded 09/22/25 15:55 Review of Systems Review of Systems ROS Unobtainable: Unobtainable due to medical condition Hematologic/Lymphatic On Anticoagulants: No Patient History Medical History (Updated 09/22/25 @ 16:33 by Abelardo Bustamante MD) Fatigue Chronic hip pain Chronic low back pain Colon cancer screening Fibromyalgia Esophageal dysmotility Vitamin D deficiency Chronic headaches Heart palpitations Chronic neck pain Chronic back pain Hearing decreased Mumps Measles Chicken pox Hypothyroidism Hyperlipidemia Surgical History Anesthesia History of tonsillectomy Family History Father No problems noted. Grandmother Stroke Grandfather History of heart disease Grandmother History of heart disease Cancer Social History household members: spouse and family alcohol intake: current Smoking Status: Never smoker alcohol intake frequency: other Exam Narrative Exam Narrative: Vitals: ?Afebrile, all other vitals within normal range Gen: ?Well-developed, well-nourished, no acute distress Cards: ? Tachycardic, no murmurs, rubs, gallops Pulm: ?No increased work of breathing, clear to auscultation Abd: ?Soft, nondistended, nontender to palpation Ext:? No edema in bilateral lower extremities Neuro: ?A&O x4, NIHSS 18 Psych: ?Appropriate Initial Vital Signs Initial Vital Signs: Vital Signs Temperature 99.2 F 09/20/25 15:11 Pulse Rate 115 H 09/20/25 15:11 Respiratory Rate 19 09/20/25 15:11 Blood Pressure 140/95 H 09/20/25 15:11 Pulse Oximetry 99 09/20/25 15:11 Oxygen Delivery Method Room Air 09/20/25 15:11 Course Orders Ordered: ED Orders 09/20/25 15:27 CT Stroke Stat 09/20/25 15:28 CT angio head and neck Stat Vital Signs Vital signs: Vital Signs - 8 hr 09/20/25 15:11 Temperature 99.2 F Pulse Rate 115 H Respiratory Rate 19 Blood Pressure 140/95 H Pulse Oximetry 99 Oxygen Delivery Method Room Air MDM - Neuro Symptoms/Deficit Lab Data 09/20/25 15:26 09/20/25 15:26 Labs: Lab Results 09/20/25 09/20/25 09/20/25 Range/Units 15:24 15:26 15:50 WBC 8.8 (4.5-11.0) X10^3/uL RBC 4.97 (4.0-5.2) X10^6/uL Hgb 14.8 (12.0-16.0) g/dL Hct 44.4 (36-46) % MCV 89.4 (80-100) fL MCH 29.8 (26-34) PG MCHC 33.3 (30-36) % RDW 12.9 (11.6-14.8) % Plt Count 297 (150-400) X10^3/uL Neut % (Auto) 50.3 (50-75) % Lymph % (Auto) 43.7 H (25-40) % [place] % (Auto) 4.9 (3-14) % Eos % (Auto) 0.6 L (2-4) % Baso % (Auto) 0.5 (0-2) % Neut # (Auto) 4400 (1272-1453) /uL Lymph # (Auto) 3900 (5147-0576) /uL [place] # (Auto) 400 (0-900) /uL Eos # (Auto) 0 (0-450) /uL Baso # (Auto) 0 (0-100) /uL Sodium 141 (137-145) mmol/L Potassium 3.9 (3.4-5.1) mmol/L Chloride 104 (98-107) mmol/L Carbon Dioxide 24 (22-32) mmol/L BUN 11 (7-17) mg/dL Creatinine 0.52 (0.52-1.04) mg/dL Estimated GFR > 60 (>60) mL/min BUN/Creatinine Ratio 21.2 (6-22) Glucose 112 H (70-99) mg/dL POC Whole Bld Glucose 102 H (70-99) mg/dL Calcium 9.2 (8.4-10.2) mg/dL Total Bilirubin 0.6 (0.2-1.3) mg/dL AST 43 H (14-36) IU/L ALT 20 (<35) IU/L Alkaline Phosphatase 74 (38-126) U/L Total Protein 9.2 H (6.3-8.2) g/dL Albumin 5.2 H (3.5-5.0) g/dL Globulin 4.0 (1.7-4.1) g/dL Albumin/Globulin Ratio 1.3 (1.0-2.8) Urine RBC None seen (0-5/HPF) Urine WBC 0-1/hpf (0-5/HPF) Ur Squamous Epith Cells None seen (0-5/HPF) Urine Bacteria None seen (None) Vol Urine Centrifuged 10ml (spun) SARS-CoV-2 (PCR) (Negative) Influenza A (RT-PCR) (NEGATIVE) Influenza B (RT-PCR) (NEGATIVE) RSV (PCR) (Negative) 09/20/25 Range/Units 17:54 WBC (4.5-11.0) X10^3/uL RBC (4.0-5.2) X10^6/uL Hgb (12.0-16.0) g/dL Hct (36-46) % MCV (80-100) fL MCH (26-34) PG MCHC (30-36) % RDW (11.6-14.8) % Plt Count (150-400) X10^3/uL Neut % (Auto) (50-75) % Lymph % (Auto) (25-40) % [place] % (Auto) (3-14) % Eos % (Auto) (2-4) % Baso % (Auto) (0-2) % Neut # (Auto) (4080-5551) /uL Lymph # (Auto) (6325-8771) /uL [place] # (Auto) (0-900) /uL Eos # (Auto) (0-450) /uL Baso # (Auto) (0-100) /uL Sodium (137-145) mmol/L Potassium (3.4-5.1) mmol/L Chloride (98-107) mmol/L Carbon Dioxide (22-32) mmol/L BUN (7-17) mg/dL Creatinine (0.52-1.04) mg/dL Estimated GFR (>60) mL/min BUN/Creatinine Ratio (6-22) Glucose (70-99) mg/dL POC Whole Bld Glucose (70-99) mg/dL Calcium (8.4-10.2) mg/dL Total Bilirubin (0.2-1.3) mg/dL AST (14-36) IU/L ALT (<35) IU/L Alkaline Phosphatase (38-126) U/L Total Protein (6.3-8.2) g/dL Albumin (3.5-5.0) g/dL Globulin (1.7-4.1) g/dL Albumin/Globulin Ratio (1.0-2.8) Urine RBC (0-5/HPF) Urine WBC (0-5/HPF) Ur Squamous Epith Cells (0-5/HPF) Urine Bacteria (None) Vol Urine Centrifuged SARS-CoV-2 (PCR) Negative (Negative) Influenza A (RT-PCR) Flu a negative (NEGATIVE) Influenza B (RT-PCR) Flu b negative (NEGATIVE) RSV (PCR) Negative (Negative) Point of Care Testing Glucose POC 102 Urine Dip Bedside Urine Glucose Negative Bedside Urine Bilirubin - Negative Bedside Urine Ketone - Negative Urine Specific Strong 1.005 Bedside Urine Occult Blood - Negative Bedside Urine pH 8.5 Bedside Urine Protein - Negative Bedside Urine Urobilinogen - Negative Bedside Urine Nitrite - Negative Bedside Urine Leukocytes - Negative Esterase Imaging Data CT scan - abdomen/pelvis: Radiologist's Impression: PROCEDURE: CT CHEST ABD PEL W CON INDICATIONS: paralysis TECHNIQUE: After the administration of intravenous contrast, 5 mm thick sections acquired from the lung apices to the symphysis. 5 mm coronal and sagittal reformats were performed, with additional 7 mm MIP reformats through the lungs. For radiation dose reduction, the following was used: automated exposure control, adjustment of mA and/or kV according to patient size. COMPARISON: None. FINDINGS: Image quality: Excellent. CHEST: Lower Neck: No enlarged lymph nodes. Thyroid: No thyroid nodules which require sonographic follow up, per consensus guidelines. Axillae: No enlarged lymph nodes. Chest Wall: Unremarkable. Lungs and Pleura: No pneumothorax or pleural effusions. Juxtapleural nodules with smooth margins, favoring benign intrapulmonary lymph nodes. Heart: Heart size is normal. No pericardial effusion. Marked LAD calcifications. Thoracic Vessels: The aorta and pulmonary arteries demonstrate normal size. Aberrant right subclavian artery. Mediastinum and Edilia: No enlarged lymph nodes. Esophagus: No wall thickening. No hiatal hernia. ABDOMEN: Liver: No solid mass. Gallbladder: No radiopaque gallstones or wall thickening. Biliary ducts: No biliary dilation. Pancreas: No ductal dilation. Spleen: Size is within normal limits. Adrenal Glands: No adrenal nodules. Kidneys and Ureters: No hydronephrosis. No solid mass. No complex renal cystic lesion which requires follow up. Stomach and Bowel: Normal colonic caliber, without significant wall thickening. Peritoneum: No abnormal intraperitoneal fluid. No free air. Ventral Wall: No significant ventral hernia. Abdominal Nodes: No retroperitoneal or mesenteric adenopathy by size criteria. Vessels: Aorta and inferior vena cava are normal in size. PELVIS: Pelvic Organs: Unremarkable. Bladder: No bladder wall thickening, accounting for underdistention. Pelvic Nodes: No enlarged lymph nodes. Miscellaneous: No inguinal hernias are seen. Bones: No aggressive osseous abnormality. IMPRESSION: No findings to explain the patient's paralysis. Marked coronary artery calcifications for age. Correlate with risk factors and advise counseling. Dictated by: Lars Kauffman M.D. on 09/20/2025 at 16:37 Approved by: Lars Kauffman M.D. on 09/20/2025 at 16:40 CT scan - head: Radiologist's Impression: PROCEDURE: CT STROKE INDICATIONS: AMS TECHNIQUE: Noncontrast 4.5 mm thick angled axial sections acquired from the foramen magnum to the vertex, with coronal reformats. For radiation dose reduction, the following was used: automated exposure control, adjustment of mA and/or kV according to patient size. COMPARISON: [facility], CT, CT STROKE, 11/05/2023, 21:43. FINDINGS: Image quality: Diagnostic. CSF spaces: Basal cisterns are patent. No extra-axial fluid collections. Ventricles are normal in size and shape. Brain: No midline shift. No intracranial mass effect or hemorrhage. [place]- white matter interface is normal. Skull and face: Calvarium and visualized facial bones are intact, without suspicious lesions. Sinuses: Visualized sinuses and mastoids are clear. IMPRESSION: No acute intracranial pathology. Findings were discussed with the referring provider, Dr. Worrell, by telephone on 09/20/2025 at 3:38 PM. This study fulfills neurological imaging criteria for inclusion or exclusion of acute stroke therapies based on available published neurological imaging guidelines. Approved by: Shad Josue M.D. on 09/20/2025 at 15:39 CTA - head/neck: Radiologist's Impression: PROCEDURE: CT ANGIO HEAD AND NECK INDICATIONS: AMS TECHNIQUE: After the administration of intravenous contrast, 1 mm thick sections acquired from the aortic arch through the [place] of [place]. 3- dimensional fbypjuo-qezgpsjoi-drclrggjav (MIP) and/or volume rendering reformats were acquired of the central intracranial vasculature and neck separately. For radiation dose reduction, the following was used: automated exposure control, adjustment of mA and/or kV according to patient size. COMPARISON: [facility], CT, CT ANGIO HEAD AND NECK, 11/05/2023, 21:43. FINDINGS: Image quality: Diagnostic. Cerebral CT Angiogram: Internal carotid arteries: No acute findings. Intracranial ICA are patent with no significant stenosis. No occlusion. No aneurysm. Anterior cerebral arteries: Unremarkable. No significant stenosis. No occlusion. No aneurysm. Middle cerebral arteries: Unremarkable. No significant stenosis. No occlusion. No aneurysm. Posterior cerebral arteries: type origin of the right [employer], a normal anatomic variant. Left [employer] is patent.. No significant stenosis. No occlusion. No aneurysm. Basilar artery: Unremarkable. No significant stenosis. No occlusion. No aneurysm. Vertebral arteries: Unremarkable as visualized. Dural venous sinuses: Unremarkable given phase of enhancement. Other: Please see the separately dictated report from the noncontrast CT of the head performed at the same time. No abnormal intracranial arterial-phase enhancement. Neck CT Angiogram: Internal carotid arteries: Unremarkable. No significant stenosis. No dissection or occlusion. Common carotid arteries: Unremarkable. No significant stenosis. No dissection or occlusion. External carotid arteries: Unremarkable. No occlusion. 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 Right vertebral artery arises from the right common carotid artery. No significant stenosis. No dissection or occlusion. 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 No significant diverticulum of chondral. Right vertebral artery arises from the right common carotid artery. Other: Arterial phase soft tissues of the neck and chest are unremarkable. IMPRESSION: No significant intracranial arterial abnormality is seen. No significant abnormality is seen within the arteries of the neck. Any quantitative measurements of stenosis were performed using NASCET criteria. Approved by: Shad Josue M.D. on 09/20/2025 at 15:54 MDM Narrative Medical decision making narrative: Patient is a 55-year-old female who presents to the ER with left-sided weakness, ataxia. Patient presented with significant neurologic deficits concerning for a stroke. For code stroke was called. EMR Review: Reviewed EMR and ER visit on 11/06/2023 where patient had similar symptoms. Differential diagnosis: ACS, CVA, seizure, infection, trauma/spinal cord syndromes, inflammation, Guillain-[place] syndrome, tick paralysis, botulism, hypoglycemia, electrolyte abnormalities to include hypokalemic periodic paralysis, thyrotoxic periodic paralysis, other. Labs: CBC without leukocytosis, left shift, no anemia, platelets are normal. CMP without any overt abnormalities, glucose 1 5, AST 43. Urinalysis not consistent with UTI. Imaging: CT a head and neck, brain, chest abdomen and pelvis for without any acute abnormalities. Consultation: Stroke neurology consulted as part of the code stroke pathway. ED course: [address] called non-con CT negative for acute stroke. I considered lumbar puncture as part of the diagnostic evaluation and had nursing staff prepare the setup. However, on reevaluation the patient demonstrated significant improvement in her neurologic symptoms. Given this clinical recovery, I determined that lumbar puncture was unlikely to provide additional diagnostic information that would alter management, and the procedure was deferred. The patient was observed in the ED for continued neurologic monitoring. Over the course of observation, she regained strength, demonstrated improved coordination, and was able to tolerate oral intake without difficulty. No acute findings emerged on serial assessments. She was deemed appropriate for outpatient stroke workup, including neurology follow up. The patient was discharged in stable condition with instructions for close outpatient follow up. She was advised to continue evaluation with her primary care provider and neurology as arranged, and to return for any worsening or new neurologic symptoms. She expressed understanding of the plan and return precautions. On 09/22/25 at 22:18, the patient called to report she had seen her primary care provider and was referred to neurology. She stated she has experienced similar episodes in the past attributed to her autoimmune condition and viral triggers. She noted that during prior episodes she recovered more quickly than she has with the current one. Critical Care Time Critical Care Time Attestation: Critical care time was provided due to the high probability of imminent or life?threatening deterioration related to the patient?s acute neurologic presentation, including concern for stroke and other serious neurologic or metabolic conditions. Critical care activities included: -- Direct patient evaluation and serial neurologic examinations -- Review and interpretation of laboratory studies and imaging -- Coordination with stroke neurology -- Management of diagnostic and treatment decisions during code stroke activation -- Reassessment during ED observation -- Documentation and review of prior records -- Discussion with patient and care team regarding clinical status and plan This time does not include separately billable procedures, time spent on routine care, or time spent with other patients. A total of 60 minutes of critical care time was personally provided. Discharge Plan Departure Patient Disposition: Home Clinical Impression: Weakness Activity Restrictions/Additional Instructions: You were seen in the emergency department for weakness. In the ER: -- There was concern that you were having a acute stroke. Your head CT was negative for any acute stroke. -- Blood work to include blood counts, electrolytes, liver panel, urinalysis was normal. -- COVID, influenza, RSV viral panel was negative. Recommend that you follow up with your primary care provider for your ER visit today. Return to the ER if you develop any new or worsening symptoms. Prescriptions: No Action epinephrine 0.3 mg/0.3 mL syringe 0.3 ml SUBCUT ONCE Qty: 2 0RF Rx Instructions: as a single dose; may repeat once diltiazem HCl 120 mg tablet 120 mg PO DAILY levothyroxine 75 mcg tablet 75 mcg PO DAILY Qty: 90 1RF Referrals: Abelardo Bustamante MD [Primary Care Provider, Family Practice] Stand Alone Forms: Patient Portal/API
--- NOTE | 2025-09-20 16:39 | DI.CT.S_ITS ---
PROCEDURE: CT CHEST ABD PEL W CON INDICATIONS: paralysis TECHNIQUE: After the administration of intravenous contrast, 5 mm thick sections acquired from the lung apices to the symphysis. 5 mm coronal and sagittal reformats were performed, with additional 7 mm MIP reformats through the lungs. For radiation dose reduction, the following was used: automated exposure control, adjustment of mA and/or kV according to patient size. COMPARISON: None. FINDINGS: Image quality: Excellent. CHEST: Lower Neck: No enlarged lymph nodes. Thyroid: No thyroid nodules which require sonographic follow up, per consensus guidelines. Axillae: No enlarged lymph nodes. Chest Wall: Unremarkable. Lungs and Pleura: No pneumothorax or pleural effusions. Juxtapleural nodules with smooth margins, favoring benign intrapulmonary lymph nodes. Heart: Heart size is normal. No pericardial effusion. Marked LAD calcifications. Thoracic Vessels: The aorta and pulmonary arteries demonstrate normal size. Aberrant right subclavian artery. Mediastinum and Edilia: No enlarged lymph nodes. Esophagus: No wall thickening. No hiatal hernia. ABDOMEN: Liver: No solid mass. Gallbladder: No radiopaque gallstones or wall thickening. Biliary ducts: No biliary dilation. Pancreas: No ductal dilation. Spleen: Size is within normal limits. Adrenal Glands: No adrenal nodules. Kidneys and Ureters: No hydronephrosis. No solid mass. No complex renal cystic lesion which requires follow up. Stomach and Bowel: Normal colonic caliber, without significant wall thickening. Peritoneum: No abnormal intraperitoneal fluid. No free air. Ventral Wall: No significant ventral hernia. Abdominal Nodes: No retroperitoneal or mesenteric adenopathy by size criteria. Vessels: Aorta and inferior vena cava are normal in size. PELVIS: Pelvic Organs: Unremarkable. Bladder: No bladder wall thickening, accounting for underdistention. Pelvic Nodes: No enlarged lymph nodes. Miscellaneous: No inguinal hernias are seen. Bones: No aggressive osseous abnormality. IMPRESSION: No findings to explain the patient's paralysis. Marked coronary artery calcifications for age. Correlate with risk factors and advise counseling. Dictated by: Lars Kauffman M.D. on 09/20/2025 at 16:37 Approved by: Lars Kauffman M.D. on 09/20/2025 at 16:40
[2025-09-20 16:48] LABS: Add Manual Diff / Slide Review NO; Hematocrit 44.4 % (36-46); Hemoglobin 14.8 g/dL (12.0-16.0); Lymphocytes Absolute Auto 3900 /uL (1100-4500); Mean Corpuscular HGB Conc 33.3 % (30-36); Mean Corpuscular Hemoglobin 29.8 PG (26-34); Mean Corpuscular Volume 89.4 fL (80-100); Platelet Count 297 X10^3/uL (150-400)
[2025-09-20 17:05] LABS: Alanine Aminotransferase 20 IU/L (<35); Albumin 5.2 g/dL (3.5-5.0); Albumin Globulin Ratio 1.3 (1.0-2.8); Alkaline Phosphatase 74 U/L (38-126); Blood Urea Nitrogen 11 mg/dL (7-17); Calcium 9.2 mg/dL (8.4-10.2); Carbon Dioxide 24 mmol/L (22-32); Chloride 104 mmol/L (98-107); Estimated Glomerular Filt Rate > 60 mL/min (>60); Globulin 4.0 g/dL (1.7-4.1); Glucose 112 mg/dL (70-99); Sodium 141 mmol/L (137-145); Total Protein 9.2 g/dL (6.3-8.2)
[2025-09-20 17:08] LABS: HEMOLYSIS 62 (0-50); Potassium 3.9 mmol/L (3.4-5.1)
[2025-09-20 18:37] LABS: Influenza A - CEPHEID Flu A NEGATIVE (NEGATIVE); Influenza B - CEPHEID Flu B NEGATIVE (NEGATIVE)
[2025-09-20 18:38] LABS: COVID-19 CEPHEID 4-PLEX PCR Negative (Negative)
== END 2025-09-20 21:55 | disposition home or self-care (01) ==
PROVIDERS: Emergency Provider Student in an Organized Health Care Education/Training Program; Family Provider Family Medicine; PCP Family Medicine
DX: R27.0 Ataxia, unspecified (principal); R53.1 Weakness; S09.90XA Unspecified injury of head, initial encounter; W00.0XXA Fall on same level due to ice and snow, initial encounter; Y93.21 Activity, ice skating
CPT/HCPCS: 70450; 70496; 70498; 71260; 74177; 80053; 81003; 81015; 82962; 85025; 87086; 87637; 99284; Q9967